=== PATIENT | male | born 1945 | race Caucasian/White ===

== ENCOUNTER 2017-01-04 13:17 | Inpatient (IN) | payer MEDICARE, OTHER, BC ==
[~2017-01-04 13:17] MED LIST: ALPR2TAB3 PO; ASPI81TA82 PO; COMBAER INH; FENO134C PO; IPRAAER IN; LATA.005%O OU; METO50TA; OMEP20TA PO; ROSU20 PO; SYNT125T PO
[2017-01-04 13:18] VITALS: BP 127/63; PULSE 84; RESP 15; TEMP 98.1; O2SAT 97
[2017-01-04 13:33] VITALS: BP 130/75; PULSE 88; RESP 18; O2SAT 98
[2017-01-04] MEDS ORDERED: SODIUM CHLOR 0.9% 1000 ML INJ 1,000 ML IV SCH (13:39)
--- NOTE | 2017-01-04 13:41 | PD ---
HPI Chief Complaint: GI Complaint Time Seen by Provider: 13:41 Travel History International Travel<30 days: No Contact w/Intl Traveler<30days: No Traveled to known affect area: No History of Present Illness HPI 77-year-old male presents to the emergency department for evaluation of diarrhea that is an ongoing since . He states that he returned on December 06 from a trip to [place]. Patient reports history of myelodysplasia and gets a week of chemotherapy every month. He states he gets in the first week of the month. He denies any recent antibiotic use. He states that he will have a squirt when he has diarrhea. He states that he has had some incontinence with the diarrhea as well. He states that there is a slight reddish color to his diarrhea, but denies blood in his stool. He thinks it is due to Gatorade and watermelon. Patient states he has had decreased appetite and has not been eating or drinking since as well. He states he has had low-grade fevers, up to 100.0. He states he had one this morning. Patient states he had abdominal pain on , this has resolved. He denies any chest pain or shortness of breath. No headache. He denies any nausea or vomiting. PFSH Past Medical History Cancer: Yes (LARGE CELL LUNG CANCER) Cardiovascular Problems: No Chemotherapy: Yes Diabetes: No Endocrine: Yes Genitourinary: No Hepatitis: No Hiatal Hernia: No Immune Disorder: Yes (granuloma annulare) Musculoskeletal: No Neurologic: No Psychiatric: Yes (AT NIGHT DUE TO MEDICAL PROBLEMS) Reproductive: No Respiratory: Yes (COPD STOPPED SMOKING IN DECEMBER) Thyroid Disease: Yes Past Surgical History Abdominal Surgery: No AICD: No Cardiac Surgery: No Ear Surgery: No Endocrine Surgery: No Genitourinary Surgery: No Gynecologic Surgery: No Joint Replacement: No Oral Surgery: No Pacemaker: No Thoracic Surgery: Yes (RIGHT MIDDLE LOBE REMOVED 02/09/13) Other Surgery: Yes Social History Alcohol Use: No Tobacco Use: No Substance Use: No Allergies-Medications (Allergen,Severity, Reaction): Coded Allergies: No Known Allergies (Unverified , 03/08/15) Reported Meds & Prescriptions Reported Meds & Active Scripts Active Reported [Chemo Medication] Incruse Ellipta Inh (Umeclidinium [place] Inh) 0.0625 Mg/Act Inh 1 [place] INH DAILY PRN Proair Hfa 8.5 GM Inh (Albuterol Sulfate) 90 Mcg/Act Aer 2 Puff INH Q6H PRN 108 mcg/actuation Latanoprost Opth Drops (Latanoprost) 0.005% Drops 1 Drop EACH EYE HS Refrigerate until opened. Aspirin Adult Low Strength (Aspirin) 81 Mg Tabdr 81 Mg PO DAILY Rosuvastatin (Rosuvastatin Calcium) 20 Mg Tab 20 Mg PO DAILY Alprazolam 1 Mg Tab 1 Mg PO HS Fenofibrate Micronized 134 Mg Cap 134 Mg PO DAILY Metoprolol Tartrate 25 Mg Tab 25 Mg PO BID Omeprazole 40 Mg Cap 40 Mg PO BID Levothyroxine (Levothyroxine Sodium) 150 Mcg Tab 150 Mcg PO DAILY Review of Systems Except as stated in HPI: all other systems reviewed are Neg Physical Exam Narrative GENERAL: Well-nourished, well-developed male patient, ambulatory. Afebrile. SKIN: Focused skin assessment warm/dry. HEAD: Normocephalic. Atraumatic. EYES: No scleral icterus. No injection or drainage. NECK: Supple, trachea midline. No JVD or lymphadenopathy. CARDIOVASCULAR: Regular rate and rhythm without murmurs, gallops, or rubs. RESPIRATORY: Breath sounds equal bilaterally. No accessory muscle use. Lungs sounds are clear to auscultation. GASTROINTESTINAL: Abdomen soft, non-tender, nondistended. Patient reports a pressure with palpation diffusely, but denies pain. MUSCULOSKELETAL: No cyanosis, or edema. BACK: Nontender without obvious deformity. No CVA tenderness. RECTAL EXAM: No masses or tenderness, stool is brown with a reddish brown. Hemoccult is negative. This exam was done with KACI Prakash, at bedside. Data Data Last Documented VS Vital Signs Date Time Temp Pulse Resp B/P Pulse Ox O2 Delivery O2 Flow Rate FiO2 01/04/17 13:35 18 01/04/17 13:33 88 130/75 98 Room Air 01/04/17 13:18 98.1 Orders Complete Blood Count With Diff (01/04/17 13:39) Comprehensive Metabolic Panel (01/04/17 13:39) Lipase (01/04/17 13:39) Lactic Acid (01/04/17 13:39) Prothrombin Time / Inr (Pt) (01/04/17 13:39) Act Partial Throm Time (Ptt) (01/04/17 13:39) Urinalysis - C+S If Indicated (01/04/17 13:39) Iv Access Insert/Monitor (01/04/17 13:39) Ecg Monitoring (01/04/17 13:39) Oximetry (01/04/17 13:39) Sodium Chlor 0.9% 1000 Ml Inj (Ns 1000 M (01/04/17 13:39) Sodium Chloride 0.9% Flush (Ns Flush) (01/04/17 13:45) Blood Culture (01/04/17 13:39) C Diff Toxin Pcr (01/04/17 13:39) Sodium Chlor 0.9% 1000 Ml Inj (Ns 1000 M (01/04/17 14:45) Ct Abd/Pel W/O Iv Contrast (01/04/17 ) Ciprofloxacin 400 Mg Premix (Cipro 400 M (01/04/17 15:00) Metronidazole 500 Mg Inj (Flagyl 500 Mg (01/04/17 15:00) Chest, Single Ap (01/04/17 ) Potassium Chloride (Kcl) (01/04/17 16:30) Labs Laboratory Tests Test 01/04/17 01/04/17 13:40 14:10 White Blood Count 1.6 TH/MM3 Red Blood Count 3.36 MIL/MM3 Hemoglobin 11.4 GM/DL Hematocrit 32.9 % Mean Corpuscular Volume 98.0 FL Mean Corpuscular Hemoglobin 34.1 PG Mean Corpuscular Hemoglobin 34.7 % Concent Red Cell Distribution Width 16.5 % Platelet Count 210 TH/MM3 Mean Platelet Volume 9.2 FL Neutrophils (%) (Auto) 70.1 % Lymphocytes (%) (Auto) 24.6 % Monocytes (%) (Auto) 4.5 % Eosinophils (%) (Auto) 0.2 % Basophils (%) (Auto) 0.6 % Neutrophils # (Auto) 1.1 TH/MM3 Lymphocytes # (Auto) 0.4 TH/MM3 Monocytes # (Auto) 0.1 TH/MM3 Eosinophils # (Auto) 0.0 TH/MM3 Basophils # (Auto) 0.0 TH/MM3 CBC Comment AUTO DIFF Differential Total Cells 100 Counted Neutrophils % (Manual) 52 % Band Neutrophils % 20 % Lymphocytes % 20 % Monocytes % 8 % Neutrophils # (Manual) 1.2 TH/MM3 Nucleated Red Blood Cells 1 /100 WBC Differential Comment FINAL DIFF MANUAL Platelet Estimate NORMAL Platelet Morphology Comment NORMAL Ovalocytes 1+ Prothrombin Time 10.6 SEC Prothromb Time International 1.0 RATIO Ratio Activated Partial 28.0 SEC Thromboplast Time Sodium Level 137 MEQ/L Potassium Level 3.0 MEQ/L Chloride Level 107 MEQ/L Carbon Dioxide Level 17.2 MEQ/L Anion Gap 13 MEQ/L Blood Urea Nitrogen 29 MG/DL Creatinine 2.29 MG/DL Estimat Glomerular Filtration 28 ML/MIN Rate Random Glucose 131 MG/DL Lactic Acid Level 1.8 mmol/L Calcium Level 9.3 MG/DL Total Bilirubin 0.9 MG/DL Aspartate Amino Transf 70 U/L (AST/SGOT) Alanine Aminotransferase 55 U/L (ALT/SGPT) Alkaline Phosphatase 45 U/L Total Protein 7.4 GM/DL Albumin 3.6 GM/DL Lipase 690 U/L Urine Color YELLOW Urine Turbidity HAZY Urine pH 6.0 Urine Specific [place] 1.024 Urine Protein 100 mg/dL Urine Glucose (UA) TRACE mg/dL Urine Ketones NEG mg/dL Urine Occult Blood NEG Urine Nitrite NEG Urine Bilirubin NEG Urine Urobilinogen 2.0 MG/DL Urine Leukocyte Esterase NEG Urine RBC 1 /hpf Urine WBC 6 /hpf Urine Squamous Epithelial 1 /hpf Cells Urine Hyaline Casts 38 /lpf Urine Mucus MOD /lpf Microscopic Urinalysis Comment CULT NOT INDICATED Stool C. difficile Toxin (PCR) NEGATIVE Stl C. difficile Toxin PRESUMPTIVE Epiderm 027 NEGATIVE MDM Medical Decision Making Medical Screen Exam Complete: Yes Emergency Medical Condition: Yes Medical Record Reviewed: Yes Interpretation(s) Last Impressions Abdomen/Pelvis CT 01/04/17 0000 Signed Impressions: Service Date/Time: Wednesday, January 04, 2017 15:13 - CONCLUSION: 1. Mild induration with mildly prominent lymph nodes in the left upper quadrant mesentery. This is nonspecific. The bowel in this region appears unremarkable. 2. Bilateral renal masses likely related to cyst. This could be further evaluated with an ultrasound examination at some point. 3. Scattered colonic diverticula in the sigmoid region without inflammatory change. 4. Postoperative change/scarring at the anterior right lung base. Angel Yanez MD chest x-ray = CONCLUSION: Postoperative change in the right chest. An acute abnormality is not clearly seen. Differential Diagnosis Gastroenteritis versus C. difficile diarrhea versus ellipsoid abnormality versus UTI versus diverticulitis versus pancreatitis Narrative Course 77-year-old male presents to the emergency department for evaluation of diarrhea since with decreased appetite. He has reports the abdominal pain on , but this is resolved. Patient has history myelodysplasia and is on chemotherapy. CBC, CMP, lipase, lactic acid, PTT, PTT/INR, blood cultures 2, UA, C. difficile toxin are ordered and pending. Patient is given normal saline [address] abdomen/pelvis with IV contrast is ordered and pending. CBC shows leukopenia 1.6, neutrophils low at 1.1, band neutrophils are 20. CMP shows hypokalemia at 3.0, BUN 29, creatinine 2.29. Lipase is 690. Lactic acid is 1.8. Coags are unremarkable. CT abdomen/pelvis shows no acute abnormality. Chest x-ray shows no acute abnormality. Patient is given ciprofloxacin 400 mg IV, Flagyl 500 mg IV. Residents are paged for admission. Residents accepted admission. [facility] Point of Care Internal Pos. & Neg. Controls: Passed Fecal Specimen Occult Blood: Negative Diagnosis Primary Impression: Diarrhea Qualified Code: A09 - Diarrhea of presumed infectious origin Additional Impressions: Leukopenia Qualified Code: D72.819 - Leukopenia, unspecified type Bandemia Acute kidney injury Admitting Information Admitting Physician Requests: Admit Luaan Gonzalez Jan 04, 2017 13:41
[2017-01-04] MEDS ORDERED: SODIUM CHLORIDE 0.9% FLUSH 10 ML FLUSH IV FLUSH PRN ×2 (13:45→17:45)
[2017-01-04] MEDS ORDERED: FENO134C PO (13:50)
[2017-01-04] MEDS ORDERED: OMEP40CA2 PO (13:50)
[2017-01-04] MEDS ORDERED: ASPI1TAB91 PO (13:50)
[2017-01-04] MEDS ORDERED: ALPR1TAB3 PO (13:50)
[2017-01-04] MEDS ORDERED: UMEC1INH INH (13:50)
[2017-01-04] MEDS ORDERED: METO25TA3 PO (13:50)
[2017-01-04] MEDS ORDERED: ROSU1TAB8 PO (13:50)
[2017-01-04] MEDS ORDERED: LATA0.002 EACH EYE (13:50)
[2017-01-04] MEDS ORDERED: ALBUAER3 INH (13:50)
[2017-01-04] MEDS ORDERED: LEVO150T7 PO (13:50)
[2017-01-04] MEDS ORDERED: CHEMO MEDICATION (13:51)
[2017-01-04 14:04] LABS: AUTOMATED NEUTROPHIL # 1.1 TH/MM3 (1.8-7.7); BASOPHIL % 0.6 % (0.0-2.0); EOSINOPHIL % 0.2 % (0.0-4.0); HEMATOCRIT 32.9 % (39.0-51.0); LYMPH % 24.6 % (9.0-44.0); LYMPHOCYTE # 0.4 TH/MM3 (1.0-4.8); MEAN CORPUSCULAR HEMOGLOBIN 34.1 PG (27.0-34.0); MEAN CORPUSCULAR HGB CONC 34.7 % (32.0-36.0); MONO % 4.5 % (0.0-8.0); NEUT % 70.1 % (16.0-70.0); PLATELET COUNT 210 TH/MM3 (150-450); RED BLOOD COUNT 3.36 MIL/MM3 (4.50-5.90); RED CELL DISTRIBUTION WIDTH 16.5 % (11.6-17.2); WHITE BLOOD COUNT 1.6 TH/MM3 (4.0-11.0)
[2017-01-04 14:06] LABS: HEMO FLAGS AUTO DIFF
[2017-01-04 14:18] LABS: PROTHROMBIN TIME - PATIENT 10.6 SEC (9.8-11.6)
[2017-01-04 14:24] LABS: ALKALINE PHOSPHATASE 45 U/L (45-117); ALT (GPT) 55 U/L (12-78); TOTAL BILIRUBIN ADULT 0.9 MG/DL (0.2-1.0)
[2017-01-04 14:27] LABS: ANION GAP 13 MEQ/L (5-15); AST (GOT) 70 U/L (15-37); BICARBONATE 17.2 MEQ/L (21.0-32.0); BLOOD UREA NITROGEN 29 MG/DL (7-18); CHLORIDE 107 MEQ/L (98-107); GLOMERULAR FILTRATION RATE 28 ML/MIN (>89); SODIUM (NA) 137 MEQ/L (136-145)
[2017-01-04 14:39] LABS: BLOOD, URINE NEG (NEG); COMMENT (UR) CULT NOT INDICATED; CULTURE IF INDICATED CULT NOT INDICATED; GLUCOSE,URINE TRACE mg/dL (NEG); HYALINE CAST, URINE 38 /lpf (RARE); KETONE, URINE NEG (NEG); MUCUS URINE MOD /lpf (OCC); NITRITE,URINE NEG (NEG); SQUAMOUS EPITHELIAL CELL URINE 1 /hpf (0-5); URINE COLOR YELLOW (YELLW/STRAW)
[2017-01-04 14:45] LABS: BANDS 20 % (0-6); CORRECTED NUCLEATED RBC 1 /100 WBC (0-0); NEUTROPHIL # MANUAL DIFF 1.2 TH/MM3 (1.8-7.7); POLYS (SEG NEUTROPHILS) 52 % (16-70); WBC DIFF SAMPLE 100
[2017-01-04] MEDS ORDERED: SODIUM CHLOR 0.9% 1000 ML INJ 1,000 ML IV ONE (14:45)
[2017-01-04 14:46] LABS: OVALOCYTES 1+ (NORMAL)
[2017-01-04 14:47] LABS: PLATELET ESTIMATE SMEAR NORMAL (NORMAL); PLATELET MORPHOLOGY NORMAL (NORMAL); SCAN/DIFF FINAL DIFF MANUAL
[2017-01-04] MEDS ORDERED: CIPROFLOXACIN 400 MG PREMIX 200 ML IV ONE (15:00)
[2017-01-04] MEDS ORDERED: metroNIDAZOLE 500 MG INJ 100 ML IV ONE (15:00)
--- NOTE | 2017-01-04 16:08 | RADRPT ---
EXAM DATE/TIME: 01/04/2017 15:04 [facility] COMPARISON: No previous studies available for comparison. INDICATIONS : Fever, chest pain, diarrhea, lightheaded and dizziness. MEDICAL HISTORY : Carcinoma, lung. Chronic obstructive pulmonary disease. SURGICAL HISTORY : Lobectomy, middle right. ENCOUNTER: Initial ACUITY: 4 - 6 days PAIN SCORE: 3/10 LOCATION: Bilateral lower chest FINDINGS: There appears to be a lung suture line at the lateral right mid lung. There is some increased densit y at the right base which may be related to postoperative change and tenting. A focal mass is not se en. A significant effusion is not seen. The heart is normal. Clips are seen in the right mediastin al region. CONCLUSION: Postoperative change in the right chest. An acute abnormality is not clearly seen. Angel Yanez MD on January 04, 2017 at 15:50 Board Certified Radiologist. This report was verified electronically.
--- NOTE | 2017-01-04 16:13 | RADRPT ---
EXAM DATE/TIME: 01/04/2017 15:13 [facility] COMPARISON: No previous studies available for comparison. INDICATIONS : Abdomen pain. ORAL CONTRAST: No oral contrast ingested. RADIATION DOSE: 9.96 CTDIvol (mGy) MEDICAL HISTORY : Carcinoma, lung. SURGICAL HISTORY : None. ENCOUNTER: Initial ACUITY: 3 days PAIN SCALE: 3/10 LOCATION: Bilateral abdomen. TECHNIQUE: Volumetric scanning of the abdomen and pelvis was performed. Using automated exposure control and ad justment of the mA and/or kV according to patient size, radiation dose was kept as low as reasonably achievable to obtain optimal diagnostic quality images. DICOM format image data is available electro nically for review and comparison. FINDINGS: LOWER LUNGS: There appears to be some scarring at the anterior right base above the right hemidiaphragm. LIVER: Homogeneous density without lesion. There is no dilation of the biliary tree. No calcified gallston es. SPLEEN: Normal size without lesion. PANCREAS: Within normal limits. KIDNEYS: There is a 4 cm mass at the anterior superior left kidney and a 2.3 cm mass at the lateral mid right kidney. These may represent cysts although they are nonspecific on this noncontrast CT examination. N o renal stones or hydronephrosis is seen. ADRENAL GLANDS: Within normal limits. VASCULAR: There is no aortic aneurysm. Arterial calcifications are seen. BOWEL/MESENTERY: There are few colonic diverticula in the sigmoid region. There some minimal induration of the mesente ry in the left upper quadrant with small mesenteric lymph nodes in this region. The lymph nodes measu re up to 1.2 cm in greatest dimension. This is nonspecific. ABDOMINAL WALL: Within normal limits. RETROPERITONEUM: There is no lymphadenopathy. BLADDER: No wall thickening or mass. REPRODUCTIVE: Within normal limits. INGUINAL: There is no lymphadenopathy or hernia. MUSCULOSKELETAL: Within normal limits for patient age. CONCLUSION: 1. Mild induration with mildly prominent lymph nodes in the left upper quadrant mesentery. This is no nspecific. The bowel in this region appears unremarkable. 2. Bilateral renal masses likely related to cyst. This could be further evaluated with an ultrasound examination at some point. 3. Scattered colonic diverticula in the sigmoid region without inflammatory change. 4. Postoperative change/scarring at the anterior right lung base. Angel Yanez MD on January 04, 2017 at 16:01 Board Certified Radiologist. This report was verified electronically.
[2017-01-04 16:28] LABS: C. DIFF EPI 027 PRESUMPTIVE NEGATIVE (NEGATIVE); C. DIFF TOXIN PCR NEGATIVE (NEGATIVE)
[2017-01-04] MEDS ORDERED: POTASSIUM CHLORIDE 20 MEQ CONTROLLED RELEASE TAB PO ONE (16:30)
--- NOTE | 2017-01-04 17:43 | HHI.HP ---
[facility] Service Family Medicine Primary Care Physician Cassidy (Kavin) MD Carlos Admission Diagnosis diarrhea, bandemia, JOSE J Diagnoses: International Travel<30 Days: Yes Contact w/Intl Traveler<30days: Yes Name of Country Traveled to: [place], [facility] Known Affected Area: No History of Present Illness 71-year-old male with past medical history of neuroendocrine tumor of the right middle lobe status post resection and adjuvant chemotherapy in 2012, currently being treated for myelodysplastic syndrome presenting with a four-day history of diarrhea. Symptoms began on and were associated with mild abdominal cramping. Abdominal cramping resolved the evening on , but diarrhea persisted. He also notes intermittent fevers and chills during this timeframe. He does not go camping. He states he was having a bowel movement about every 2 hours, small amounts, loose to liquidy. No blood was noted in stool, however he did have several darker stools on Thursday and Thursday after having taken Pepto- Bismol and red Gatorade. He has had decreased oral intake, but no vomiting. He has no history of abdominal surgeries. His last chemotherapy regimen with azacitidine was on 20 December. He is next due for his ascending treatment on January [address] Weeks. Of note, he returned from a extended trip to [place] and [facility] on 06 December. He was mostly in the city at that time and did not travel into the country or into the mountains. (Raji Escudero MD R1) Review of Systems Constitutional: COMPLAINS OF: Fever, Chills Endocrine: DENIES: Polydipsia Eyes: DENIES: Blurred vision, Eye pain Ears, nose, mouth, throat: DENIES: Odynophagia Respiratory: DENIES: Cough, Wheezing, Shortness of breath Cardiovascular: DENIES: Chest pain, Palpitations Gastrointestinal: COMPLAINS OF: Abdominal pain, Diarrhea, Nausea, DENIES: Black stools, Bloody stools, Vomiting Genitourinary: DENIES: Urinary frequency Musculoskeletal: DENIES: Muscle aches Integumentary: DENIES: Rash Hematologic/lymphatic: DENIES: Bruising Immunologic/allergic: DENIES: Eczema Neurologic: DENIES: Headache (Raji Escudero MD R1) Past Family Social History Past Medical History Angiodysplasia of small bowel Diane's Esophagus CKD COPD Glaucoma Hyperlipidemia Hemochromatosis (hereditary type) MDS 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 (Raji Escudero MD R1) Physical Exam Vital Signs Vital Signs Date Time Temp Pulse Resp B/P Pulse Ox O2 Delivery O2 Flow Rate FiO2 01/04/17 13:35 18 01/04/17 13:33 88 18 130/75 98 Room Air 01/04/17 13:18 98.1 84 15 127/63 97 Physical Exam GENERAL: Well-developed, well-nourished adult white male sitting in bed appearing tired but in no acute distress SKIN: No rashes, ecchymoses or lesions. Cool and dry. HEAD: NC/AT EYES: PERRL. EOMI. No conjunctival injection or drainage. ENT: MMM, OP without erythema, tonsillar swelling, or exudate. NECK: Supple. No JVD. CARDIOVASCULAR: NRRR. Normal S1/S2. No MRG RESPIRATORY: CTAB. No crackles or wheezes. GASTROINTESTINAL: Abdomen soft, non-distended, non-tender. No hepato- splenomegaly or palpable masses. MUSCULOSKELETAL: Extremities without clubbing, cyanosis, or edema. NEUROLOGICAL: Awake and alert. Cranial nerves II through XII grossly intact. Moves all extremities without difficulty. Normal speech. Laboratory Laboratory Tests Test 01/04/17 01/04/17 13:40 14:10 White Blood Count 1.6 Red Blood Count 3.36 Hemoglobin 11.4 Hematocrit 32.9 Mean Corpuscular Volume 98.0 Mean Corpuscular Hemoglobin 34.1 Mean Corpuscular Hemoglobin 34.7 Concent Red Cell Distribution Width 16.5 Platelet Count 210 Mean Platelet Volume 9.2 Neutrophils (%) (Auto) 70.1 Lymphocytes (%) (Auto) 24.6 Monocytes (%) (Auto) 4.5 Eosinophils (%) (Auto) 0.2 Basophils (%) (Auto) 0.6 Neutrophils # (Auto) 1.1 Lymphocytes # (Auto) 0.4 Monocytes # (Auto) 0.1 Eosinophils # (Auto) 0.0 Basophils # (Auto) 0.0 CBC Comment AUTO DIFF Differential Total Cells 100 Counted Neutrophils % (Manual) 52 Band Neutrophils % 20 Lymphocytes % 20 Monocytes % 8 Neutrophils # (Manual) 1.2 Nucleated Red Blood Cells 1 Differential Comment FINAL DIFF MANUAL Platelet Estimate NORMAL Platelet Morphology Comment NORMAL Ovalocytes 1+ Prothrombin Time 10.6 Prothromb Time International 1.0 Ratio Activated Partial 28.0 Thromboplast Time Sodium Level 137 Potassium Level 3.0 Chloride Level 107 Carbon Dioxide Level 17.2 Anion Gap 13 Blood Urea Nitrogen 29 Creatinine 2.29 Estimat Glomerular Filtration 28 Rate Random Glucose 131 Lactic Acid Level 1.8 Calcium Level 9.3 Total Bilirubin 0.9 Aspartate Amino Transf 70 (AST/SGOT) Alanine Aminotransferase 55 (ALT/SGPT) Alkaline Phosphatase 45 Total Protein 7.4 Albumin 3.6 Lipase 690 Urine Color YELLOW Urine Turbidity HAZY Urine pH 6.0 Urine Specific [place] 1.024 Urine Protein 100 Urine Glucose (UA) TRACE Urine Ketones NEG Urine Occult Blood NEG Urine Nitrite NEG Urine Bilirubin NEG Urine Urobilinogen 2.0 Urine Leukocyte Esterase NEG Urine RBC 1 Urine WBC 6 Urine Squamous Epithelial 1 Cells Urine Hyaline Casts 38 Urine Mucus MOD Microscopic Urinalysis Comment CULT NOT INDICATED Stool C. difficile Toxin (PCR) NEGATIVE Stl C. difficile Toxin PRESUMPTIVE Epiderm 027 NEGATIVE Date/Time Procedure Status Source Growth 01/04/17 13:45 Aerobic Blood Culture Received Blood Peripheral Pending 01/04/17 13:45 Anaerobic Blood Culture Received Blood Peripheral Pending (Raji Escudero MD R1) Result Diagram: 01/04/17 1340 01/04/17 1340 Imaging Last Impressions Chest X-Ray 01/04/17 0000 Signed Impressions: Service Date/Time: Wednesday, January 04, 2017 15:04 - CONCLUSION: Postoperative change in the right chest. An acute abnormality is not clearly seen. Angel Yanez MD Abdomen/Pelvis CT 01/04/17 0000 Signed Impressions: Service Date/Time: Wednesday, January 04, 2017 15:13 - CONCLUSION: 1. Mild induration with mildly prominent lymph nodes in the left upper quadrant mesentery. This is nonspecific. The bowel in this region appears unremarkable. 2. Bilateral renal masses likely related to cyst. This could be further evaluated with an ultrasound examination at some point. 3. Scattered colonic diverticula in the sigmoid region without inflammatory change. 4. Postoperative change/scarring at the anterior right lung base. Angel Yanez MD (Raji Escudero MD R1) Assessment and Plan Assessment and Plan 71-year-old male with past medical history significant for mild dysplastic syndrome presenting with: (Raji Escudero MD R1) Attending Attestation The patient has been seen and examined. The chart and all resident notes have been reviewed. I agree that inpatient care is appropriate and that a two midnight stay is expected for the reasons documented in the resident history and physical. I have discussed this with the resident and certify the resident s order for inpatient admission. (Margy Keyes MD) Problem List: (1) Diarrhea Status: Acute Plan: Given associated fevers or chills, likely etiology is infectious. Clinically not septic at this time. C. difficile PCR negative Hemoccult negative Enteric path culture of stool pending Giardia antigen pending Blood cultures pending - Cipro 400 mg IV every 12 hours - Flagyl 500 mg IV every 8 hours - Creatinine clearance 40 due to JOSE J (see below), renally dosed medicines - Follow up stool studies - Follow up blood culture - If symptoms fail to resolve with Cipro and Flagyl, can consider adding ganciclovir to treat possible CMV colitis; clinically not appearing to have CMV colitis at this time (2) Acute kidney injury Status: Acute Plan: Creatinine 2.29 on admission, elevated from baseline of about 1.5. Likely etiology is dehydration from diarrhea. - Normal saline at 125 mL per hour - Follow up BMP in the morning (3) MDS (myelodysplastic syndrome) Status: Chronic Plan: Blood cell count on admission 1.6, decreased from about 7.1 on 11 December. Patient tends to be leukopenic at about 3 or 4. Bands neutrophils 20%, which could be appropriate response to myelosuppression or infectious etiology - Follow up a.m. CBC - Consider hematology/oncology consult if additional symptoms develop, otherwise keep scheduled appointment with Dr. Weeks (4) Hyperlipidemia Status: Chronic Plan: Continue home statin, fenofibrate (5) Glaucoma Status: Chronic Plan: Continue home eyedrops (6) FEN/PPX Status: Acute Plan: Fluids: As above Electrolytes: Monitor and replete as needed Nutrition: Diet regular adult basic DVT: Lovenox 30 mg SQ daily N/V: Zofran 4 mg IV every 6 hours as needed dw Dr. Mendoza (Raji Escudero MD R1) Physician Certification 2 Midnight Certification Type: Admission for Inpatient Services Order for Inpatient Services The services are ordered in accordance with Medicare regulations or non- Medicare payer requirements, as applicable. In the case of services not specified as inpatient-only, they are appropriately provided as inpatient services in accordance with the 2-midnight benchmark. Estimated LOS (days): 2 days is the estimated time the patient will need to remain in the hospital, assuming treatment plan goals are met and no additional complications. Post-Hospital Plan: Home (Raji Escudero MD R1) Problem Qualifiers (1) Diarrhea: Qualified Code: A09 - Diarrhea of presumed infectious origin (2) Hyperlipidemia: Qualified Code: E78.2 - Mixed hyperlipidemia Raji Escudero MD R1 Jan 04, 2017 17:43 Margy Keyes MD Jan 05, 2017 13:57
[2017-01-04 17:46] VITALS: BP 124/89; PULSE 81; RESP 16; O2SAT 99
[2017-01-04] MEDS ORDERED: NALOXONE HCL 0.4 MG/ML AMP IV PRN (18:15)
[2017-01-04] MEDS ORDERED: ONDANSETRON HCL 4 MG/2 ML VIAL IVP PRN (18:15)
[2017-01-04] MEDS ORDERED: [UNRECOGNIZED DRUG - OTHER] INH PRN (18:30)
[2017-01-04] MEDS ORDERED: UMECLIDINIUM BROMIDE INH PRN (18:30)
[2017-01-04] MEDS: SODIUM CHLOR 0.9% 1000 ML INJ 1,000 ML IV SCH (18:50)
[2017-01-04] MEDS: METOPROLOL TARTRATE 25 MG TAB PO SCH (21:00)
[2017-01-04] MEDS ORDERED: ACETAMINOPHEN 325 MG TAB PO PRN (21:15)
[2017-01-04 21:40] VITALS: BP 100/55; PULSE 95; RESP 20; TEMP 98.7; O2SAT 96
[2017-01-04] MEDS: PANTOPRAZOLE SOD 40 MG DELAYED RELEASE TAB PO SCH (22:15)
[2017-01-04] MEDS: ALPRAZolam 1 MG TAB PO SCH (22:15)
[2017-01-04] MEDS: SODIUM CHLORIDE 0.9% FLUSH 10 ML FLUSH IV FLUSH SCH (22:16)
[2017-01-04] MEDS: LATANOPROST 0.005% OPHT SOLN 2.5 ML BTL EACH EYE SCH (22:16)
[2017-01-04] MEDS: ENOXAPARIN SODIUM 30 MG/0.3 ML SYRINGE SQ SCH (22:16)
[2017-01-04] MEDS: metroNIDAZOLE 500 MG INJ 100 ML IV SCH (23:59)
[2017-01-05 01:16] VITALS: BP 100/60; PULSE 74; RESP 20; TEMP 100.4; O2SAT 97
[2017-01-05] MEDS: SODIUM CHLOR 0.9% 1000 ML INJ 1,000 ML IV SCH ×3 (02:14→23:43)
[2017-01-05] MEDS: CIPROFLOXACIN 400 MG PREMIX 200 ML IV SCH ×2 (04:57→16:29)
[2017-01-05] MEDS: LEVOTHYROXINE SODIUM 150 MCG TAB PO SCH (04:57)
[2017-01-05 05:31] VITALS: BP 102/59; PULSE 83; RESP 20; TEMP 98; O2SAT 96
[2017-01-05 08:00] VITALS: BP 96/53; PULSE 95; RESP 20; TEMP 99; O2SAT 97
[2017-01-05] MEDS: SODIUM CHLORIDE 0.9% FLUSH 10 ML FLUSH IV FLUSH SCH ×2 (09:00→20:51)
[2017-01-05] MEDS: PANTOPRAZOLE SOD 40 MG DELAYED RELEASE TAB PO SCH ×2 (09:00→20:51)
[2017-01-05] MEDS: FENOFIBRATE 145 MG TAB PO SCH (09:00)
[2017-01-05] MEDS: METOPROLOL TARTRATE 25 MG TAB PO SCH ×2 (09:00→20:51)
[2017-01-05] MEDS: ATORVASTATIN 40 MG TAB PO SCH (09:00)
[2017-01-05] MEDS: ASPIRIN EC 81 MG TABEC PO SCH (09:00)
[2017-01-05] MEDS: metroNIDAZOLE 500 MG INJ 100 ML IV SCH ×3 (09:02→23:43)
[2017-01-05 10:43] LABS: AUTOMATED NEUTROPHIL # 1.1 TH/MM3 (1.8-7.7); BASOPHIL % 0.8 % (0.0-2.0); EOSINOPHIL % 0.3 % (0.0-4.0); HEMATOCRIT 28.2 % (39.0-51.0); LYMPH % 24.7 % (9.0-44.0); LYMPHOCYTE # 0.4 TH/MM3 (1.0-4.8); MEAN CELL VOLUME 98.3 FL (80.0-100.0); MEAN CORPUSCULAR HGB CONC 34.7 % (32.0-36.0); MONO % 5.9 % (0.0-8.0); NEUT % 68.3 % (16.0-70.0); PLATELET COUNT 233 TH/MM3 (150-450); RED BLOOD COUNT 2.87 MIL/MM3 (4.50-5.90); RED CELL DISTRIBUTION WIDTH 16.8 % (11.6-17.2); WHITE BLOOD COUNT 1.6 TH/MM3 (4.0-11.0)
[2017-01-05 10:47] LABS: HEMO FLAGS AUTO DIFF
[2017-01-05 11:14] LABS: BICARBONATE 16.8 MEQ/L (21.0-32.0); MAGNESIUM 1.4 MG/DL (1.5-2.5)
[2017-01-05 11:17] LABS: POTASSIUM 2.6 MEQ/L (3.5-5.1)
[2017-01-05 11:24] LABS: BANDS 20 % (0-6); BASOPHILS 2 % (0-2); OVALOCYTES 1+ (NORMAL); PLATELET ESTIMATE SMEAR NORMAL (NORMAL); PLATELET MORPHOLOGY NORMAL (NORMAL); POLYS (SEG NEUTROPHILS) 44 % (16-70); SCAN/DIFF FINAL DIFF MANUAL; WBC DIFF SAMPLE 100
[2017-01-05 11:25] LABS: ACANTHOCYTES OCC (NORMAL); TOXIC GRANULATION 1+ (NORMAL)
[2017-01-05 12:00] VITALS: BP 99/55; PULSE 79; RESP 20; TEMP 98.3; O2SAT 97
[2017-01-05] MEDS ORDERED: POTASSIUM CHLOR 10 MEQ PREMIX 100 ML IV SCH (14:15)
[2017-01-05] MEDS ORDERED: POTASSIUM CHLORIDE 20 MEQ CONTROLLED RELEASE TAB PO ONE ×2 (14:15→22:00)
--- NOTE | 2017-01-05 14:21 | HHI.FPPN ---
Subjective Subjective Patient seen and examined with the resident team. Case reviewed and discussed. Please refer to resident H&P for further details regarding history of present illness, ROS, past medical and surgical history, family and social history. All systems reviewed and negative except as stated in history of present illness. In summary, patient is a 71-year-old male with a history of myelodysplastic syndrome presenting with almost one week history of abdominal cramping and significant diarrhea, up to 9 or 10 episodes per day. He also endorses decreased by mouth intake. He recently traveled to [place]. He is seen in his hospital bed with family by this bedside. He notes temperatures overnight. He continued to have 9 episodes of watery diarrhea overnight. [facility] Objective Objective Last Impressions Chest X-Ray 01/04/17 0000 Signed Impressions: Service Date/Time: Wednesday, January 04, 2017 15:04 - CONCLUSION: Postoperative change in the right chest. An acute abnormality is not clearly seen. Angel Yanez MD Abdomen/Pelvis CT 01/04/17 0000 Signed Impressions: Service Date/Time: Wednesday, January 04, 2017 15:13 - CONCLUSION: 1. Mild induration with mildly prominent lymph nodes in the left upper quadrant mesentery. This is nonspecific. The bowel in this region appears unremarkable. 2. Bilateral renal masses likely related to cyst. This could be further evaluated with an ultrasound examination at some point. 3. Scattered colonic diverticula in the sigmoid region without inflammatory change. 4. Postoperative change/scarring at the anterior right lung base. Angel Yanez MD Laboratory Tests - Abnormals Test 01/04/17 01/05/17 14:10 09:24 Urine Turbidity HAZY Urine Protein 100 mg/dL Urine WBC 6 /hpf Urine Mucus MOD /lpf White Blood Count 1.6 TH/MM3 Red Blood Count 2.87 MIL/MM3 Hemoglobin 9.8 GM/DL Hematocrit 28.2 % Neutrophils # (Auto) 1.1 TH/MM3 Lymphocytes # (Auto) 0.4 TH/MM3 Band Neutrophils % 20 % Neutrophils # (Manual) 1.0 TH/MM3 Toxic Granulation 1+ Ovalocytes 1+ Potassium Level 2.6 MEQ/L Chloride Level 109 MEQ/L Carbon Dioxide Level 16.8 MEQ/L Blood Urea Nitrogen 23 MG/DL Creatinine 1.67 MG/DL Estimat Glomerular Filtration 41 ML/MIN Rate Random Glucose 141 MG/DL Calcium Level 8.4 MG/DL Phosphorus Level 2.0 MG/DL Magnesium Level 1.4 MG/DL Vital Signs 01/04/17 01/04/17 01/05/17 01/05/17 17:46 21:40 01:16 05:31 Temp 98.7 100.4 98.0 Pulse 81 95 74 83 Resp 16 20 20 20 B/P 124/89 100/55 100/60 102/59 Pulse Ox 99 96 97 96 O2 Delivery Room Air 01/05/17 01/05/17 08:00 12:00 Temp 99.0 98.3 Pulse 95 79 Resp 20 20 B/P 96/53 99/55 Pulse Ox 97 97 INTAKE & OUTPUT 01/05/17 07:00 Intake Total 1085 ml Output Total 200 ml Balance 885 ml Physical exam GENERAL: wdwn male, sitting up in bed SKIN: Warm and dry. No rashes HEAD: Normocephalic. AT EYES: No scleral icterus. No injection or drainage. ENT: OP clear. MM slightly dry NECK: Supple, trachea midline. No JVD or lymphadenopathy. CARDIOVASCULAR: Regular rate and rhythm without murmurs, gallops, or rubs. RESPIRATORY: Breath sounds equal bilaterally. No accessory muscle use. GASTROINTESTINAL: Abdomen soft, non-tender, mildly distended. MUSCULOSKELETAL: No cyanosis, or edema. No calf tenderness BACK: Nontender without obvious deformity. No CVA tenderness. NEURO: Awake and alert. Normal speech. CN grossly intact. Assessment Assessment 71yoM with: Intractable diarrhea, concern for infectious colitis Immunosuppression, hx MDS Acute on chronic kidney disease Dehydration Leukopenia Anemia PLAN PLAN Empiric antibiotic therapy Stool studies, c diff neg Trend cbc, bmp Monitor electrolytes Consult oncology, known to Dr. Weeks IVF resume home meds as appropriate Supportive care Patient seen and examined. Case reviewed and discussed Agree with plan of care as discussed with me and documented in the resident note. Margy Keyes MD Jan 05, 2017 14:21
--- NOTE | 2017-01-05 14:34 | PD.CONS ---
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 Denies n/v, abdominal pain, blood in stool. Denies sick contact. Returned from [place] a month ago. No new foods or meds. His eats with him and did not get sick. Stool pos for salmonella. He is on flagyl, cipro. he says he feels better since admission, no longer having explosive diarrhea/ fecal incontinence, and feels his fevers are gone. He last had EGD a few months ago, he gets them regularly with Dr Gonzalez for surveillance of Diane's. Last colonoscopy 4y ago and due to be repeated next year, does not recall abnormal fndings. PFSH Past Medical History myelodysplactic syndrome neuroendocrine tumor lung Past Surgical History resection tumor right middle lobe Coded Allergies: No Known Allergies (Unverified , 03/08/15) Family History denies Social History occasional etoh quit smoking 4 y ago no illicit drug use Review of Systems Constitutional: DENIES: Fever Ears, nose, mouth, throat: COMPLAINS OF: Hearing loss Respiratory: DENIES: Wheezing Cardiovascular: DENIES: Chest pain Gastrointestinal: COMPLAINS OF: Diarrhea, DENIES: Abdominal pain, Black stools , Bloody stools, Constipation, Nausea, Vomiting Genitourinary: DENIES: Hematuria Musculoskeletal: DENIES: Joint Swelling Integumentary: DENIES: Jaundice Immunologic/allergic: DENIES: Eczema Neurologic: DENIES: Abnormal gait Psychiatric: DENIES: Confusion GI Exam Vitals I&O Vital Signs Date Time Temp Pulse Resp B/P Pulse Ox O2 Delivery O2 Flow Rate FiO2 01/05/17 12:00 98.3 79 20 99/55 97 01/05/17 08:00 99.0 95 20 96/53 97 01/05/17 05:31 98.0 83 20 102/59 96 01/05/17 01:16 100.4 74 20 100/60 97 01/04/17 21:40 98.7 95 20 100/55 96 01/04/17 17:46 81 16 124/89 99 Room Air I/O 01/04/17 01/04/17 01/04/17 01/05/17 01/05/17 01/05/17 07:00 15:00 23:00 07:00 15:00 23:00 Intake Total 1085 ml Output Total 200 ml Balance -200 ml 1085 ml Intake IV Total 1085 ml Output Stool Total 200 ml # Voids 1 # Bowel Movements 3 Imaging Last Impressions Chest X-Ray 01/04/17 0000 Signed Impressions: Service Date/Time: Wednesday, January 04, 2017 15:04 - CONCLUSION: Postoperative change in the right chest. An acute abnormality is not clearly seen. Angel Yanez MD Abdomen/Pelvis CT 01/04/17 0000 Signed Impressions: Service Date/Time: Wednesday, January 04, 2017 15:13 - CONCLUSION: 1. Mild induration with mildly prominent lymph nodes in the left upper quadrant mesentery. This is nonspecific. The bowel in this region appears unremarkable. 2. Bilateral renal masses likely related to cyst. This could be further evaluated with an ultrasound examination at some point. 3. Scattered colonic diverticula in the sigmoid region without inflammatory change. 4. Postoperative change/scarring at the anterior right lung base. Angel Yanez MD Laboratory Test 01/05/17 09:24 White Blood Count 1.6 TH/MM3 Red Blood Count 2.87 MIL/MM3 Hemoglobin 9.8 GM/DL Hematocrit 28.2 % Mean Corpuscular Volume 98.3 FL Mean Corpuscular Hemoglobin 34.0 PG Mean Corpuscular Hemoglobin 34.7 % Concent Red Cell Distribution Width 16.8 % Platelet Count 233 TH/MM3 Mean Platelet Volume 9.4 FL Neutrophils (%) (Auto) 68.3 % Lymphocytes (%) (Auto) 24.7 % Monocytes (%) (Auto) 5.9 % Eosinophils (%) (Auto) 0.3 % Basophils (%) (Auto) 0.8 % Neutrophils # (Auto) 1.1 TH/MM3 Lymphocytes # (Auto) 0.4 TH/MM3 Monocytes # (Auto) 0.1 TH/MM3 Eosinophils # (Auto) 0.0 TH/MM3 Basophils # (Auto) 0.0 TH/MM3 CBC Comment AUTO DIFF Differential Total Cells 100 Counted Neutrophils % (Manual) 44 % Band Neutrophils % 20 % Lymphocytes % 28 % Monocytes % 6 % Basophils % 2 % Neutrophils # (Manual) 1.0 TH/MM3 Differential Comment FINAL DIFF MANUAL Toxic Granulation 1+ Platelet Estimate NORMAL Platelet Morphology Comment NORMAL Ovalocytes 1+ Acanthocytes OCC Sodium Level 139 MEQ/L Potassium Level 2.6 MEQ/L Chloride Level 109 MEQ/L Carbon Dioxide Level 16.8 MEQ/L Anion Gap 13 MEQ/L Blood Urea Nitrogen 23 MG/DL Creatinine 1.67 MG/DL Estimat Glomerular Filtration 41 ML/MIN Rate Random Glucose 141 MG/DL Calcium Level 8.4 MG/DL Phosphorus Level 2.0 MG/DL Magnesium Level 1.4 MG/DL Date/Time Procedure Status Source Growth 01/04/17 14:10 Giardia Antigen (CROW) Received Stool Stool Pending 01/04/17 14:10 - Final Complete Stool Stool Salmonella Species 01/04/17 13:45 Aerobic Blood Culture - Preliminary Resulted Blood Peripheral NO GROWTH IN 1 DAY 01/04/17 13:45 Anaerobic Blood Culture - Preliminary Resulted Blood Peripheral NO GROWTH IN 1 DAY Physical Examination HEENT: PERRL; normocephalic; atraumatic; no jaundice. CHEST: respirations even, unlabored CARDIAC: irr heart rate ABDOMEN: Soft, nondistended, nontender; no hepatosplenomegaly EXTREMITIES: No clubbing, cyanosis, or edema. SKIN: Normal; no rash; no jaundice. STAPLER HAND: No focal deficits; alert and oriented times three. Assessment and Plan Plan ASSESSMENT - diarrhea - onset 4d ago. stool pos for salmonella. On cipro, flagyl. - abnormal finding CT - hx neuroendocrine tumor. 1. Mild induration with mildly prominent lymph nodes in the left upper quadrant mesentery. This is nonspecific. The bowel in this region appears unremarkable. PLAN - continue abx - chromogranin A, VIP, gastrin - supportive care - further recommendations to follow This pt seen by myself and Dr Traylor and this note is written on his behalf. Nyla Novak Jan 05, 2017 14:34
[2017-01-05 16:00] VITALS: BP 108/59; PULSE 94; RESP 20; TEMP 100.3; O2SAT 96
[2017-01-05] MEDS: POTASSIUM CHLOR 20 MEQ PREMIX 100 ML IV SCH ×2 (16:28→16:48)
[2017-01-05] MEDS: MAGNESIUM SULFATE 1 GM PREMIX 100 ML IV SCH ×2 (16:28→16:47)
[2017-01-05 20:31] LABS: HEMATOCRIT 26.4 % (39.0-51.0)
[2017-01-05 20:34] LABS: REVIEW FLAG FINAL
[2017-01-05] MEDS: ALPRAZolam 1 MG TAB PO SCH (20:51)
[2017-01-05] MEDS: ENOXAPARIN SODIUM 30 MG/0.3 ML SYRINGE SQ SCH (20:51)
[2017-01-05] MEDS: LATANOPROST 0.005% OPHT SOLN 2.5 ML BTL EACH EYE SCH (20:51)
[2017-01-05 20:57] VITALS: BP 115/65; PULSE 77; RESP 20; TEMP 98.5; O2SAT 98
[2017-01-05 21:03] LABS: BICARBONATE 16.7 MEQ/L (21.0-32.0)
[2017-01-05 21:16] LABS: POTASSIUM 2.6 MEQ/L (3.5-5.1)
[2017-01-06 01:29] VITALS: BP 112/58; PULSE 68; RESP 20; TEMP 96.6; O2SAT 98
[2017-01-06] MEDS: LEVOTHYROXINE SODIUM 150 MCG TAB PO SCH (05:25)
[2017-01-06] MEDS: CIPROFLOXACIN 400 MG PREMIX 200 ML IV SCH ×2 (05:26→17:58)
[2017-01-06 05:34] VITALS: BP 118/68; PULSE 74; RESP 20; TEMP 95.4; O2SAT 100
[2017-01-06 08:00] VITALS: BP 110/69; PULSE 74; RESP 17; TEMP 95.8; O2SAT 99
[2017-01-06] MEDS: metroNIDAZOLE 500 MG INJ 100 ML IV SCH ×2 (09:04→16:56)
[2017-01-06] MEDS: PANTOPRAZOLE SOD 40 MG DELAYED RELEASE TAB PO SCH ×2 (09:04→21:15)
[2017-01-06] MEDS: FENOFIBRATE 145 MG TAB PO SCH (09:05)
[2017-01-06] MEDS: ATORVASTATIN 40 MG TAB PO SCH (09:05)
[2017-01-06] MEDS: METOPROLOL TARTRATE 25 MG TAB PO SCH ×3 (09:05→21:15)
[2017-01-06] MEDS: ASPIRIN EC 81 MG TABEC PO SCH (09:05)
[2017-01-06] MEDS: SODIUM CHLORIDE 0.9% FLUSH 10 ML FLUSH IV FLUSH SCH ×2 (09:06→21:00)
--- NOTE | 2017-01-06 10:49 | HHI.FPPN ---
Subjective Remarks No acute events overnight. Febrile to 100.3. Endorses subjective fever/chills overnight. States he is feeling better this morning however remains tired. Endorses high-volume diarrhea without blood. (Kenia Aleman MD R3) Objective Vitals Vital Signs Date Time Temp Pulse Resp B/P Pulse Ox O2 Delivery O2 Flow Rate FiO2 01/06/17 05:34 95.4 74 20 118/68 100 01/06/17 01:29 96.6 68 20 112/58 98 01/05/17 20:57 98.5 77 20 115/65 98 01/05/17 16:00 100.3 94 20 108/59 96 01/05/17 12:00 98.3 79 20 99/55 97 I/O 01/05/17 01/05/17 01/05/17 01/06/17 01/06/17 01/06/17 07:00 15:00 23:00 07:00 15:00 23:00 Intake Total 1085 ml 480 ml 1170 ml 268 ml Balance 1085 ml 480 ml 1170 ml 268 ml Intake Oral 480 ml IV Total 1085 ml 1170 ml 268 ml # Voids 1 4 2 # Bowel Movements 3 4 3 (Kenia Aleman MD R3) Result Diagram: 01/05/17193301/05/171933 Objective Remarks Gen.: No acute distress Head: Normocephalic. Atraumatic. EENT: Pupils equal round and reactive to light. Nose without drainage. Airway intact. Throat without injection. Cardiovascular: Regular rate and rhythm. No murmurs, rubs or gallops. Respiratory: Lungs clear to auscultation bilaterally. No wheezes or rhonchi. Abdomen: Soft, nontender, nondistended. No peritoneal signs. Musculoskeletal: No gross deformities. No edema. Skin: No obvious rashes or erythema. Neuro: Sensory and motor grossly intact. Cranial nerves II through XII grossly intact. Psych: Appropriate mood and affect (Kenia Aleman MD R3) A/P Assessment and Plan 71-year-old male with past medical history significant for mild dysplastic syndrome presenting with: (Kenia Aleman MD R3) Attending Attestation Patient seen and examined Case reviewed and discussed Agree with plan of care as discussed with me and documented in the resident note. (Margy Keyes MD) Problem List: (1) Salmonella Status: Acute Plan: Patient positive for salmonella. Hemoccult negative. Blood cultures no growth 1 day. - Cipro 400 mg IV every 12 hours - Flagyl 500 mg IV every 8 hours - Creatinine clearance 40 due to JOSE J (see below), renally dosed medicines - Gastroenterology consulted, appreciate recommendations - ID consulted given patient's leukopenia and persistent fevers (2) Leukopenia Status: Acute Plan: Patient with known MDS. Remains febrile. Plan as above. (3) Acute kidney injury Status: Resolved Plan: Resolving. Continue to trend creatinine. Baseline 1.5, 1.6 yesterday evening. (4) MDS (myelodysplastic syndrome) Status: Chronic Plan: WBC on admission 1.6, decreased from about 7.1 on 11 December. Patient tends to be leukopenic at about 3 or 4. Bands neutrophils 20%, which could be appropriate response to myelosuppression or infectious etiology Oncology consulted and appreciate their recommendations (5) Hyperlipidemia Status: Chronic Plan: Continue home statin, fenofibrate (6) Glaucoma Status: Chronic Plan: Continue home eyedrops (7) FEN/PPX Status: Acute Plan: Fluids: NS 125 cc/hour Electrolytes: Patient severely hypokalemic with low magnesium. Aggressively repleting and following BMP. Nutrition: Diet regular adult basic DVT: Lovenox 30 mg SQ daily N/V: Zofran 4 mg IV every 6 hours as needed (Kenia Aleman MD R3) Problem Qualifiers (1) Leukopenia: Qualified Code: D72.819 - Leukopenia, unspecified type (2) Hyperlipidemia: Qualified Code: E78.2 - Mixed hyperlipidemia Kenia Aleman MD R3 Jan 06, 2017 10:48 Margy Keyes MD Jan 09, 2017 15:37
[2017-01-06 11:07] LABS: BASOPHIL % 0.9 % (0.0-2.0); EOSINOPHIL % 0.8 % (0.0-4.0); HEMATOCRIT 27.8 % (39.0-51.0); LYMPH % 34.8 % (9.0-44.0); LYMPHOCYTE # 0.7 TH/MM3 (1.0-4.8); MEAN CORPUSCULAR HEMOGLOBIN 33.6 PG (27.0-34.0); MEAN CORPUSCULAR HGB CONC 33.6 % (32.0-36.0); MONO % 11.5 % (0.0-8.0); PLATELET COUNT 322 TH/MM3 (150-450); RED BLOOD COUNT 2.78 MIL/MM3 (4.50-5.90); RED CELL DISTRIBUTION WIDTH 17.4 % (11.6-17.2); WHITE BLOOD COUNT 1.9 TH/MM3 (4.0-11.0)
[2017-01-06 11:08] LABS: HEMO FLAGS AUTO DIFF
[2017-01-06 11:36] LABS: BICARBONATE 17.4 MEQ/L (21.0-32.0); MAGNESIUM 1.7 MG/DL (1.5-2.5); POTASSIUM 3.2 MEQ/L (3.5-5.1)
[2017-01-06 12:00] VITALS: BP 96/56; PULSE 64; RESP 18; TEMP 96.6; O2SAT 99
[2017-01-06 12:07] LABS: BANDS 12 % (0-6); BASOPHILS 4 % (0-2); EOSINOPHILS 2 % (0-4); MYELOCYTES 1 % (0-0); NEUTROPHIL # MANUAL DIFF 0.8 TH/MM3 (1.8-7.7); PLATELET ESTIMATE SMEAR NORMAL (NORMAL); PLATELET MORPHOLOGY NORMAL (NORMAL); POLYS (SEG NEUTROPHILS) 28 % (16-70); PROMYELOCYTES 1 % (0-0); SCAN/DIFF FINAL DIFF MANUAL; WBC DIFF SAMPLE 100
[2017-01-06 12:08] LABS: OVALOCYTES 1+ (NORMAL)
[2017-01-06] MEDS ORDERED: POTASSIUM CHLORIDE 20 MEQ CONTROLLED RELEASE TAB PO ONE (13:00)
[2017-01-06] MEDS: MAGNESIUM SULFATE 1 GM PREMIX 100 ML IV SCH ×2 (13:25→16:09)
--- NOTE | 2017-01-06 13:26 | PD.ID.CON ---
History of Present Illness Service ID Consult Requested By Dr Aleman Reason for Consult salmonellosis Primary Care Physician Cassidy (Kavin) MD Carlos Diagnoses: History of Present Illness 71 yo male with h/o MDS developped abdominal pain x 1 day , later diarrhea starting Thursday Denies eating out Pt shares meals with his who is free of any similar smx Returened traveller 1 mo ago ([place], [place]) Stool positive for Salmonella On presentation fever, low grade, yday hypothermic 94-95 F He is on cipro, flagyl. 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 Physical Exam Vital Signs Vital Signs Date Time Temp Pulse Resp B/P Pulse Ox O2 Delivery O2 Flow Rate FiO2 01/06/17 12:00 96.6 64 18 96/56 99 01/06/17 08:00 95.8 74 17 110/69 99 01/06/17 05:34 95.4 74 20 118/68 100 01/06/17 01:29 96.6 68 20 112/58 98 01/05/17 20:57 98.5 77 20 115/65 98 01/05/17 16:00 100.3 94 20 108/59 96 Physical Exam CONSTITUTIONAL/GENERAL: This is an adequately nourished patient, in no apparent distress. TUBES/LINES/DRAINS: SKIN: No jaundice, rashes, or lesions. Skin temperature appropriate. Not diaphoretic. HEAD: Atraumatic. Normocephalic. EYES: Pupils equal and round and reactive. Extraocular motions intact. No scleral icterus. No injection or drainage. Fundi not examined. ENT: Hearing grossly normal. Nose without bleeding or purulent drainage. Throat without visible erythema, exudates, masses, or lesions. NECK: Trachea midline. Supple, nontender. No palpable thyroid enlargement or nodularity. CARDIOVASCULAR: Regular rate and rhythm without murmurs, gallops, or rubs. No JVD. Peripheral pulses symmetric. RESPIRATORY/CHEST: Symmetric, unlabored respirations. Clear to auscultation. Breath sounds equal bilaterally. No wheezes, rales, or rhonchi. GASTROINTESTINAL: Abdomen soft, non-tender, nondistended. No hepato-splenomegaly , or palpable masses. No guarding. Bowel sounds present. GENITOURINARY: Without palpable bladder distension. MUSCULOSKELETAL: Extremities without clubbing, cyanosis, or edema. No joint tenderness or effusion noted. No calf tenderness. No mottling or clubbing. LYMPHATICS: No palpable cervical or supraclavicular adenopathy. NEUROLOGICAL: Awake and alert. Motor and sensory grossly within normal limits. Follows commands. Clear speech. Moves all extremities. PSYCHIATRIC: No obvious anxiety/depression. no apparent hallucinations or other psychotic thought process. Laboratory Laboratory Tests Test 01/05/17 01/06/17 19:34 10:16 Hemoglobin 9.3 9.3 Hematocrit 26.4 27.8 Sodium Level 140 142 Potassium Level 2.6 3.2 Chloride Level 112 115 Carbon Dioxide Level 16.7 17.4 Anion Gap 11 10 Blood Urea Nitrogen 17 17 Creatinine 1.63 1.26 Estimat Glomerular Filtration 42 56 Rate Random Glucose 131 118 Calcium Level 8.5 8.9 White Blood Count 1.9 Red Blood Count 2.78 Mean Corpuscular Volume 100.0 Mean Corpuscular Hemoglobin 33.6 Mean Corpuscular Hemoglobin 33.6 Concent Red Cell Distribution Width 17.4 Platelet Count 322 Mean Platelet Volume 8.6 Neutrophils (%) (Auto) 52.0 Lymphocytes (%) (Auto) 34.8 Monocytes (%) (Auto) 11.5 Eosinophils (%) (Auto) 0.8 Basophils (%) (Auto) 0.9 Neutrophils # (Auto) 1.0 Lymphocytes # (Auto) 0.7 Monocytes # (Auto) 0.2 Eosinophils # (Auto) 0.0 Basophils # (Auto) 0.0 CBC Comment AUTO DIFF Differential Total Cells 100 Counted Neutrophils % (Manual) 28 Band Neutrophils % 12 Lymphocytes % 42 Monocytes % 10 Eosinophils % 2 Basophils % 4 Neutrophils # (Manual) 0.8 Myelocytes 1 Promyelocytes 1 Differential Comment FINAL DIFF MANUAL Platelet Estimate NORMAL Platelet Morphology Comment NORMAL Ovalocytes 1+ Magnesium Level 1.7 Date/Time Procedure Status Source Growth 01/04/17 14:10 Giardia Antigen (CROW) - Final Complete Stool Stool NEGATIVE - NO GIARDIA ANTIGEN DETECTE... 01/04/17 14:10 - Final Complete Stool Stool Salmonella Species 01/04/17 13:45 Aerobic Blood Culture - Preliminary Resulted Blood Peripheral NO GROWTH IN 2 DAYS 01/04/17 13:45 Anaerobic Blood Culture - Preliminary Resulted Blood Peripheral NO GROWTH IN 2 DAYS Result Diagram: 01/06/17 1016 01/06/17 1016 Imaging Last Impressions Chest X-Ray 01/04/17 0000 Signed Impressions: Service Date/Time: Wednesday, January 04, 2017 15:04 - CONCLUSION: Postoperative change in the right chest. An acute abnormality is not clearly seen. Angel Yanez MD Abdomen/Pelvis CT 01/04/17 0000 Signed Impressions: Service Date/Time: Wednesday, January 04, 2017 15:13 - CONCLUSION: 1. Mild induration with mildly prominent lymph nodes in the left upper quadrant mesentery. This is nonspecific. The bowel in this region appears unremarkable. 2. Bilateral renal masses likely related to cyst. This could be further evaluated with an ultrasound examination at some point. 3. Scattered colonic diverticula in the sigmoid region without inflammatory change. 4. Postoperative change/scarring at the anterior right lung base. Angel Yanez MD Assessment and Plan Assessment and Plan Salmonellosis, gastointestinal c.Diff negative No e/o bacteremia or extraintesinal salmonellosis MDS, immunosuppresdd cont cipro. Can be switched to PO if blood clx remian negative dc flagyl Because of pt's immunocompromised status minimal duration is 14 days - monitor blood clx untill final - Monitor for relapse or protractec course Discussed Condition With DomenicOfelia MD Jan 06, 2017 13:26
--- NOTE | 2017-01-06 16:37 | HHI.GIFU ---
Subjective Remarks PT resting in bed, at bedside. Pt sleeping. Per diarrhea still present but improved in frequency and volume. Pt denies pain, n/v. Objective Vitals I&O Vital Signs Date Time Temp Pulse Resp B/P Pulse Ox O2 Delivery O2 Flow Rate FiO2 01/06/17 12:00 96.6 64 18 96/56 99 01/06/17 08:00 95.8 74 17 110/69 99 01/06/17 05:34 95.4 74 20 118/68 100 01/06/17 01:29 96.6 68 20 112/58 98 01/05/17 20:57 98.5 77 20 115/65 98 I/O 01/05/17 01/05/17 01/05/17 01/06/17 01/06/17 01/06/17 07:00 15:00 23:00 07:00 15:00 23:00 Intake Total 1085 ml 480 ml 1170 ml 268 ml Balance 1085 ml 480 ml 1170 ml 268 ml Intake Oral 480 ml IV Total 1085 ml 1170 ml 268 ml # Voids 1 4 2 # Bowel Movements 3 4 3 Laboratory Laboratory Tests Test 01/05/17 01/06/17 01/06/17 19:34 10:16 14:23 Hemoglobin 9.3 9.3 Hematocrit 26.4 27.8 Sodium Level 140 142 Potassium Level 2.6 3.2 Chloride Level 112 115 Carbon Dioxide Level 16.7 17.4 Anion Gap 11 10 Blood Urea Nitrogen 17 17 Creatinine 1.63 1.26 Estimat Glomerular Filtration 42 56 Rate Random Glucose 131 118 Calcium Level 8.5 8.9 White Blood Count 1.9 Red Blood Count 2.78 Mean Corpuscular Volume 100.0 Mean Corpuscular Hemoglobin 33.6 Mean Corpuscular Hemoglobin 33.6 Concent Red Cell Distribution Width 17.4 Platelet Count 322 Mean Platelet Volume 8.6 Neutrophils (%) (Auto) 52.0 Lymphocytes (%) (Auto) 34.8 Monocytes (%) (Auto) 11.5 Eosinophils (%) (Auto) 0.8 Basophils (%) (Auto) 0.9 Neutrophils # (Auto) 1.0 Lymphocytes # (Auto) 0.7 Monocytes # (Auto) 0.2 Eosinophils # (Auto) 0.0 Basophils # (Auto) 0.0 CBC Comment AUTO DIFF Differential Total Cells 100 Counted Neutrophils % (Manual) 28 Band Neutrophils % 12 Lymphocytes % 42 Monocytes % 10 Eosinophils % 2 Basophils % 4 Neutrophils # (Manual) 0.8 Myelocytes 1 Promyelocytes 1 Differential Comment FINAL DIFF MANUAL Platelet Estimate NORMAL Platelet Morphology Comment NORMAL Ovalocytes 1+ Magnesium Level 1.7 2.2 Date/Time Procedure Status Source Growth 01/04/17 14:10 Giardia Antigen (CROW) - Final Complete Stool Stool NEGATIVE - NO GIARDIA ANTIGEN DETECTE... 01/04/17 14:10 - Final Complete Stool Stool Salmonella Species 01/04/17 13:45 Aerobic Blood Culture - Preliminary Resulted Blood Peripheral NO GROWTH IN 2 DAYS 01/04/17 13:45 Anaerobic Blood Culture - Preliminary Resulted Blood Peripheral NO GROWTH IN 2 DAYS Imaging Last Impressions Chest X-Ray 01/04/17 0000 Signed Impressions: Service Date/Time: Wednesday, January 04, 2017 15:04 - CONCLUSION: Postoperative change in the right chest. An acute abnormality is not clearly seen. Angel Yanez MD Abdomen/Pelvis CT 01/04/17 0000 Signed Impressions: Service Date/Time: Wednesday, January 04, 2017 15:13 - CONCLUSION: 1. Mild induration with mildly prominent lymph nodes in the left upper quadrant mesentery. This is nonspecific. The bowel in this region appears unremarkable. 2. Bilateral renal masses likely related to cyst. This could be further evaluated with an ultrasound examination at some point. 3. Scattered colonic diverticula in the sigmoid region without inflammatory change. 4. Postoperative change/scarring at the anterior right lung base. Angel Yanez MD Physical Exam HEENT: PERRL; normocephalic; atraumatic; no jaundice. CHEST: respirations even, unlabored CARDIAC: HR regular, pulse +2 radial ABDOMEN: Soft, nondistended, nontender; no hepatosplenomegaly EXTREMITIES: No clubbing, cyanosis, or edema. SKIN: Normal; no rash; no jaundice. MOTOR BLOCK MECHANIC: No focal deficits; alert and oriented times three. Assessment and Plan Plan ASSESSMENT - diarrhea - improving gradually. onset 4d ago. stool pos for salmonella. On cipro, flagyl. - abnormal finding CT - hx neuroendocrine tumor. 1. Mild induration with mildly prominent lymph nodes in the left upper quadrant mesentery. This is nonspecific. The bowel in this region appears unremarkable. PLAN - continue abx - await chromogranin A, VIP, gastrin - supportive care - further recommendations to follow This pt seen by myself and Dr Traylor and this note is written on his behalf. Nyla Novak Jan 06, 2017 16:37
[2017-01-06 19:45] VITALS: BP 98/68; PULSE 72; RESP 18; TEMP 96.6; O2SAT 98
[2017-01-06] MEDS: LATANOPROST 0.005% OPHT SOLN 2.5 ML BTL EACH EYE SCH (21:15)
[2017-01-06] MEDS: ALPRAZolam 1 MG TAB PO SCH (21:15)
[2017-01-06] MEDS: ENOXAPARIN SODIUM 30 MG/0.3 ML SYRINGE SQ SCH (21:15)
[2017-01-06] MEDS: SODIUM CHLOR 0.9% 1000 ML INJ 1,000 ML IV SCH (22:21)
--- NOTE | 2017-01-06 22:25 | MB ---
cc: TAYLER BARRAZA M.D. DATE OF CONSULTATION January 06, [address] Escudero REASON FOR CONSULTATION Hematology consulted to render opinion regarding patient with myelodysplastic syndrome, admitted with diarrhea, neutropenic fever. HISTORY OF PRESENT ILLNESS The patient is a very pleasant 71-year-old male with history of myelodysplastic syndrome, currently receiving Vidaza, presented to the hospital with complaint of persistent diarrhea. He received last cycle of Vidaza from December 15 to December 20. He was doing well until last when he started having diarrhea. He has up to 10-15 times of stool a day. He cannot control his diarrhea. He has also been having fever and chills with temperature up to 101. He has abdominal cramps associated with diarrhea. He denies any GI bleed. He has decreased oral intake. He came to the hospital and his white blood cell count 1.6 with absolute neutrophil count of 1.1. His stool study showed positive salmonella infection. He was started on antibiotic. He is feeling better today. He has not had fever over the last 24 hours. He still has diarrhea but is down to about eight times a day and he is able to control it. He denies chest pain, palpitation, shortness of breath or cough. Denies any nausea, vomiting, abdominal pain. Denies any dysuria, hematuria. PAST MEDICAL HISTORY 1. Myelodysplastic syndrome. 2. Large cell neuroendocrine tumor. 3. Diane's esophagus. 4. Chronic kidney disease. 5. Chronic obstructive pulmonary disease. 6. Glaucoma. 7. Hyperlipidemia. 8. Hemochromatosis. 9. Small bowel angiodysplasia. PAST SURGICAL HISTORY 1. Bone marrow biopsy February 2015. 2. Lung biopsy. 3. Right middle lobe lobectomy. 4. Pilonidal cyst and sebaceous cyst excision. 5. Colonoscopy and upper endoscopy. FAMILY HISTORY Noncontributory. SOCIAL HISTORY Quit smoking. He has 120 pack-year smoking history. He drinks occasionally. ALLERGIES No known drug allergies. CURRENT MEDICATIONS 1. Aspirin. 2. Tricor. 3. Lipitor. 4. Levothyroxine. 5. Flagyl. 6. Xanax. 7. Latanoprost. 8. Metoprolol. 9. Protonix. 10. Lovenox. 11. Cipro. REVIEW OF SYSTEMS CONSTITUTIONAL: As above. EYES: Denies blurry vision or double vision. ENT: No mouth or voice changes. CARDIOVASCULAR: No chest pain, palpitation. RESPIRATORY: Denies shortness of breath, cough. GI: As above. : Denies dysuria, hematuria. MUSCULOSKELETAL: Negative. HEMATOLOGY: As above. ENDOCRINE: Negative. DERMATOLOGY: Negative. PSYCHIATRIC: Negative. NEUROLOGIC: Negative. PHYSICAL EXAMINATION VITAL SIGNS: Temperature 96.6, blood pressure 96/56, O2 saturation 99%. GENERAL: He is alert, oriented x3, in no acute distress. He is sitting up eating dinner. HEENT: Atraumatic, normocephalic. Pupils equal, round and reactive to light. Extraocular muscle intact. No scleral icterus. Oropharynx dry mucosa. No lesion or thrush. NECK: No thyromegaly. No palpable masses. LYMPHATICS: No palpable cervical, clavicular, axillary lymph node. CARDIOVASCULAR: Regular S1-S2. No murmur. LUNGS: Clear to auscultation without wheezing or rhonchi. ABDOMEN: Soft, nontender. I could not palpate liver or spleen. EXTREMITIES: No cyanosis, no clubbing or edema. BACK: No paravertebral tenderness. SKIN: No rash or petechiae. NEUROLOGIC EXAMINATION: Nonfocal. LABORATORY DATA Laboratory data reviewed. ASSESSMENT 1. Neutropenic fever. He presented with fever and has moderate neutropenia with ANC of 1000. He likely developed neutropenia due to his recent Vidaza. His last cycle of Vidaza was from December 15 to December 20. He was found to have salmonella infection. He is now afebrile for the last 24 hours after he has been started on antibiotics. His white blood cell count is relatively stable. Given that his clinical condition has improved and the fact that his white blood cell count is quite stable I will hold off on giving him Neupogen at this time. If he has persistent fever or developed worsening neutropenia then I would give him Neupogen. Anticipate his blood count to improve in the next few days. 2. Myelodysplastic syndrome with IPSS score 2. He has been on Vidaza since October of 2015. He does not require transfusion at this time. His hemoglobin is stable. His platelet count is normal. No evidence of transformation to acute leukemia at this time. 3. 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 He received four cycles of carboplatin and etoposide. He has no evidence of recurrent disease. 4. Chronic kidney disease. He presented with acute renal failure due to dehydration. His renal function has improved. 5. Chronic obstructive lung disease. He has no symptoms. 6. Hyperlipidemia. 7. Hemochromatosis. RECOMMENDATIONS 1. Continue antibiotic per infectious disease. 2. Monitor CBC. 3. Can consider giving him Neupogen if he has worsening neutropenia or if he has recurrent fever. Thank you Dr. Escudero for asking me to see this patient. Will follow the patient with you. MD AMY Acevedo/GERRY /6:30 PM /9:57 PM MILENA
[2017-01-07] VITALS (7 sets, daily range): BP systolic 107–164; BP diastolic 60–78; PULSE 72–85; RESP 17–20; TEMP 95.3–97.3; O2SAT 95–99
[2017-01-07] MEDS: SODIUM CHLOR 0.9% 1000 ML INJ 1,000 ML IV SCH ×2 (02:14→08:11)
[2017-01-07] MEDS: CIPROFLOXACIN 400 MG PREMIX 200 ML IV SCH ×2 (04:26→17:24)
[2017-01-07] MEDS: LEVOTHYROXINE SODIUM 150 MCG TAB PO SCH (05:24)
[2017-01-07] MEDS: SODIUM CHLORIDE 0.9% FLUSH 10 ML FLUSH IV FLUSH SCH ×2 (08:11→21:00)
[2017-01-07] MEDS: METOPROLOL TARTRATE 25 MG TAB PO SCH ×2 (08:12→21:00)
[2017-01-07] MEDS: ASPIRIN EC 81 MG TABEC PO SCH (08:12)
[2017-01-07] MEDS: ATORVASTATIN 40 MG TAB PO SCH (08:13)
[2017-01-07] MEDS: FENOFIBRATE 145 MG TAB PO SCH (08:13)
[2017-01-07] MEDS: PANTOPRAZOLE SOD 40 MG DELAYED RELEASE TAB PO SCH ×2 (08:14→21:43)
--- NOTE | 2017-01-07 08:38 | PD.ONC.PN ---
Subjective Subjective Remarks Afebrile overnight. Feeling well today. Still with multiple episodes of diarrhea, but overall feeling improved. at bedside. Waiting on CBC results this morning. Objective Data Date Time Temp Pulse Resp B/P Pulse Ox O2 Delivery O2 Flow Rate FiO2 01/07/17 04:00 97.3 84 18 151/65 98 01/07/17 02:00 110/60 01/07/17 01:00 95.3 79 18 164/65 95 01/06/17 19:45 96.6 72 18 98/68 98 01/06/17 12:00 96.6 64 18 96/56 99 01/07/17 01/07/17 01/07/17 07:00 15:00 23:00 Intake Total 1450 ml Balance 1450 ml Result Diagram: 01/06/17 1016 01/06/17 1016 Laboratory Results Laboratory Tests Test 01/06/17 01/06/17 10:16 14:23 White Blood Count 1.9 TH/MM3 Red Blood Count 2.78 MIL/MM3 Hemoglobin 9.3 GM/DL Hematocrit 27.8 % Mean Corpuscular Volume 100.0 FL Mean Corpuscular Hemoglobin 33.6 PG Mean Corpuscular Hemoglobin 33.6 % Concent Red Cell Distribution Width 17.4 % Platelet Count 322 TH/MM3 Mean Platelet Volume 8.6 FL Neutrophils (%) (Auto) 52.0 % Lymphocytes (%) (Auto) 34.8 % Monocytes (%) (Auto) 11.5 % Eosinophils (%) (Auto) 0.8 % Basophils (%) (Auto) 0.9 % Neutrophils # (Auto) 1.0 TH/MM3 Lymphocytes # (Auto) 0.7 TH/MM3 Monocytes # (Auto) 0.2 TH/MM3 Eosinophils # (Auto) 0.0 TH/MM3 Basophils # (Auto) 0.0 TH/MM3 CBC Comment AUTO DIFF Differential Total Cells 100 Counted Neutrophils % (Manual) 28 % Band Neutrophils % 12 % Lymphocytes % 42 % Monocytes % 10 % Eosinophils % 2 % Basophils % 4 % Neutrophils # (Manual) 0.8 TH/MM3 Myelocytes 1 % Promyelocytes 1 % Differential Comment FINAL DIFF MANUAL Platelet Estimate NORMAL Platelet Morphology Comment NORMAL Ovalocytes 1+ Sodium Level 142 MEQ/L Potassium Level 3.2 MEQ/L Chloride Level 115 MEQ/L Carbon Dioxide Level 17.4 MEQ/L Anion Gap 10 MEQ/L Blood Urea Nitrogen 17 MG/DL Creatinine 1.26 MG/DL Estimat Glomerular Filtration 56 ML/MIN Rate Random Glucose 118 MG/DL Calcium Level 8.9 MG/DL Magnesium Level 1.7 MG/DL 2.2 MG/DL Culture Results Microbiology Date/Time Procedure Status Source Growth 01/04/17 13:40 Aerobic Blood Culture - Preliminary Resulted Blood Peripheral NO GROWTH IN 2 DAYS 01/04/17 13:40 Anaerobic Blood Culture - Preliminary Resulted Blood Peripheral NO GROWTH IN 2 DAYS 01/04/17 13:45 Aerobic Blood Culture - Preliminary Resulted Blood Peripheral NO GROWTH IN 2 DAYS 01/04/17 13:45 Anaerobic Blood Culture - Preliminary Resulted Blood Peripheral NO GROWTH IN 2 DAYS 01/04/17 14:10 - Final Complete Stool Stool Salmonella Species 01/04/17 14:10 Giardia Antigen (CROW) - Final Complete Stool Stool NEGATIVE - NO GIARDIA ANTIGEN DETECTE... Administered Medications Medications (Trade) Dose Ordered Sig/Lori Route PRN Reason Start Time Stop Time Status Last Admin Dose Admin Sodium Chloride 2 ml 2 ml BID IV FLUSH 01/04/17 21:00 01/04/17 22:16 Sodium Chloride (NS 1000 ml Inj) 1,000 ml @ 125 mls/hr Q8H IV 01/04/17 18:14 01/07/17 08:11 Enoxaparin Sodium 30 mg 30 mg Q24H SQ 01/04/17 20:00 01/06/17 21:15 Ciprofloxacin/ Dextrose (Cipro 400 Mg Premix) 200 ml @ 200 mls/hr Q12H IV 01/04/17 05:00 01/07/17 04:26 Alprazolam (Xanax) 1 mg HS PO 01/04/17 21:00 01/06/17 21:15 Aspirin (Ecotrin Ec) 81 mg DAILY PO 01/05/17 09:00 01/07/17 08:12 Latanoprost (Xalatan 0.005% Opt Soln) 1 drop HS EACH EYE 01/04/17 21:00 01/06/17 21:15 Levothyroxine Sodium (Synthroid) 150 mcg DAILY@06 PO 01/05/17 06:00 01/07/17 05:24 Metoprolol Tartrate (Lopressor) 25 mg BID PO 01/04/17 21:00 6/26/17 20:51 Fenofibrate (Tricor) 145 mg DAILY PO 01/05/17 09:00 01/07/17 08:13 Pantoprazole Sodium (Protonix) 40 mg BID PO 01/04/17 21:00 01/07/17 08:14 Atorvastatin Calcium (Lipitor) 40 mg DAILY PO CM 01/05/17 09:00 01/07/17 08:13 Objective Remarks GENERAL: Elderly male, upright in bed in nad. SKIN: Warm and dry. HEAD: Normocephalic. EYES: No injection or drainage. NECK: Supple, trachea midline. CARDIOVASCULAR: Regular rate and rhythm RESPIRATORY: Breath sounds equal bilaterally. No accessory muscle use. GASTROINTESTINAL: Abdomen soft, non-tender, nondistended. EXTREMITIES: No cyanosis NEUROLOGICAL: No obvious focal deficit. Awake, alert, and oriented x3. Assessment/Plan Problem List: (1) Neutropenic fever Status: Acute Plan: -- likely developed neutropenia due to his recent Vidaza. --last cycle of Vidaza was from December 15 to December 20. ++salmonella infection. --If he has persistent fever or developed worsening neutropenia-->will start Neupogen. --Anticipate his blood count to improve in the next few days. (2) MDS (myelodysplastic syndrome) Status: Chronic Plan: --Myelodysplastic syndrome with IPSS score 2. --has been on Vidaza since October of 2015. --does not require transfusion at this time. --No evidence of transformation to acute leukemia at this time. Assessment 71y/o male with myelodysplastic syndrome, admitted with diarrhea, neutropenic fever. h/o Myelodysplastic syndrome. 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 Chronic kidney disease. Chronic obstructive pulmonary disease. Glaucoma. Hyperlipidemia. Hemochromatosis. Small bowel angiodysplasia. Plan 1. monitor CBC 2. continue antibiotics 3. no need for transfusion at present. Attending Statement The exam, history, and the medical decision-making described in the above note were completed with the assistance of the mid-level provider. I reviewed and agree with the findings presented. I attest that I had a [id number] encounter with the patient on the same day, and personally performed and documented my assessment and findings in the medical record. Still has diarrhea but stool more formed. No abdominal pain. Afebrile >24hours. WBC trending up, ANC 1200. No need for neupogen at this time. Monitor CBC. Continue abx per ID. Karrie Solis Jan 07, 2017 08:38 Cristobal Ness MD Jan 07, 2017 15:56
[2017-01-07 10:07] LABS: AUTOMATED NEUTROPHIL # 1.6 TH/MM3 (1.8-7.7); BASOPHIL # 0.1 TH/MM3 (0-0.2); BASOPHIL % 1.6 % (0.0-2.0); EOSINOPHIL % 1.2 % (0.0-4.0); HEMATOCRIT 30.6 % (39.0-51.0); LYMPH % 34.3 % (9.0-44.0); LYMPHOCYTE # 1.1 TH/MM3 (1.0-4.8); MEAN CELL VOLUME 100.5 FL (80.0-100.0); MEAN CORPUSCULAR HEMOGLOBIN 33.1 PG (27.0-34.0); MEAN CORPUSCULAR HGB CONC 32.9 % (32.0-36.0); MONO % 11.9 % (0.0-8.0); PLATELET COUNT 485 TH/MM3 (150-450); RED BLOOD COUNT 3.04 MIL/MM3 (4.50-5.90); RED CELL DISTRIBUTION WIDTH 17.5 % (11.6-17.2); WHITE BLOOD COUNT 3.1 TH/MM3 (4.0-11.0)
[2017-01-07 10:16] LABS: HEMO FLAGS AUTO DIFF
[2017-01-07 10:35] LABS: BICARBONATE 18.5 MEQ/L (21.0-32.0); MAGNESIUM 1.5 MG/DL (1.5-2.5); POTASSIUM 3.8 MEQ/L (3.5-5.1)
[2017-01-07 11:01] LABS: BANDS 18 % (0-6); BASOPHILS 2 % (0-2); CORRECTED NUCLEATED RBC 1 /100 WBC (0-0); METAMYELOCYTES 1 % (0-1); MYELOCYTES 1 % (0-0); NEUTROPHIL # MANUAL DIFF 1.2 TH/MM3 (1.8-7.7); POLYS (SEG NEUTROPHILS) 20 % (16-70); WBC DIFF SAMPLE 100
[2017-01-07 11:02] LABS: ACANTHOCYTES OCC (NORMAL); OVALOCYTES 1+ (NORMAL); PLATELET ESTIMATE SMEAR HIGH (NORMAL); TOXIC GRANULATION 2+ (NORMAL)
[2017-01-07 11:03] LABS: PLATELET MORPHOLOGY NORMAL (NORMAL); SCAN/DIFF FINAL DIFF MANUAL
--- NOTE | 2017-01-07 14:05 | HHI.FPPN ---
Subjective Remarks Patient feeling better. Does report some sweating last night, but this is his baseline. He is still having loose stools, but this has reduced in frequency. Only now having 8 BMs per 24 hours. Denies blood with his stools. Tolerating full meals, including pancakes and muffins. (Mitchell Mendoza MD R2) Objective Vitals Vital Signs Date Time Temp Pulse Resp B/P Pulse Ox O2 Delivery O2 Flow Rate FiO2 01/07/17 12:00 95.9 85 18 124/67 98 01/07/17 08:00 95.9 76 17 107/66 98 01/07/17 04:00 97.3 84 18 151/65 98 01/07/17 02:00 110/60 01/07/17 01:00 95.3 79 18 164/65 95 01/06/17 19:45 96.6 72 18 98/68 98 I/O 01/06/17 01/06/17 01/06/17 01/07/17 01/07/17 01/07/17 06:59 14:59 22:59 06:59 14:59 22:59 Intake Total 1170 ml 268 ml 1450 ml Balance 1170 ml 268 ml 1450 ml IV Total 1170 ml 268 ml 1450 ml # Voids 2 2 # Bowel Movements 3 2 (Mitchell Mendoza MD R2) Result Diagram: 01/07/1782001/07/17820 Objective Remarks Gen.: No acute distress Head: Normocephalic. Atraumatic. EENT: Pupils equal round and reactive to light. Nose without drainage. Airway intact. Throat without injection. Cardiovascular: Regular rate and rhythm. No murmurs, rubs or gallops. Respiratory: Lungs clear to auscultation bilaterally. No wheezes or rhonchi. Abdomen: Soft, nontender, nondistended. No peritoneal signs. Musculoskeletal: No gross deformities. No edema. Skin: No obvious rashes or erythema. Neuro: Sensory and motor grossly intact. Cranial nerves II through XII grossly intact. Psych: Appropriate mood and affect (Mitchell Mendoza MD R2) A/P Assessment and Plan 71-year-old male with past medical history significant for mild dysplastic syndrome presenting with: (Mitchell Mendoza MD R2) Attending Attestation Patient seen and examined Case reviewed and discussed Agree with plan of care as discussed with me and documented in the resident note. dw Dr. Sheth, ID (Margy Keyes MD) Problem List: (1) Salmonella Status: Acute Plan: Patient positive for salmonella. Hemoccult negative. Blood cultures no growth 1 day. - Cipro 400 mg IV every 12 hours - Flagyl 500 mg IV every 8 hours - Creatinine clearance 40 due to JOSE J (see below), renally dosed medicines - Gastroenterology consulted, appreciate recommendations - ID consulted given patient's leukopenia and persistent fevers (2) Leukopenia Status: Acute Plan: Patient with known MDS. Afebrile 24 hours. CBC improved from 1.9-->3.1. (3) Acute kidney injury Status: Resolved Plan: Resolving. Continue to trend creatinine. (4) MDS (myelodysplastic syndrome) Status: Chronic Plan: WBC on admission 1.6, decreased from about 7.1 on 11 December. Patient tends to be leukopenic at about 3 or 4. Bands neutrophils 20%, which could be appropriate response to myelosuppression or infectious etiology Consulted hematology/oncology : Recommended continuing antibiotics per ID, monitor CBC, consider adding Neupogen if worsening neutropenia or he has recurrent fevers. (5) Hyperlipidemia Status: Chronic Plan: Continue home statin, fenofibrate (6) Glaucoma Status: Chronic Plan: Continue home eyedrops (7) FEN/PPX Status: Acute Plan: Fluids: Tolerating by mouth diet, discontinue fluids. Electrolytes: Aggressively repleting Mg and K+ and following BMP. Potassium corrected to 3.8. Magnesium at 1.5. Given additional 1 g Mg IV today. Nutrition: Diet regular adult basic DVT: Lovenox 30 mg SQ daily N/V: Zofran 4 mg IV every 6 hours as needed (Mitchell Mendoza MD R2) Problem Qualifiers (1) Leukopenia: Qualified Code: D72.819 - Leukopenia, unspecified type (2) Hyperlipidemia: Qualified Code: E78.2 - Mixed hyperlipidemia Mitchell Mendoza MD R2 Jan 07, 2017 14:05 Margy Keyes MD Jan 09, 2017 15:38
[2017-01-07] MEDS ORDERED: MAGNESIUM SULFATE 1 GM PREMIX 100 ML IV ONE (15:15)
[2017-01-07] MEDS ORDERED: POTASSIUM CHLORIDE 20 MEQ CONTROLLED RELEASE TAB PO ONE (15:15)
--- NOTE | 2017-01-07 15:29 | HHI.IDPN ---
Subjective Subjective Remarks feels better cont to have watery diarrhea, reports 4 watery green BMs since 7 am blood clx remain negative ANC 1200 Antibiotics cipro Allergies: Coded Allergies: No Known Allergies (Unverified , 03/08/15) Objective . Vital Signs Date Time Temp Pulse Resp B/P Pulse Ox O2 Delivery O2 Flow Rate FiO2 01/07/17 12:00 95.9 85 18 124/67 98 01/07/17 08:00 95.9 76 17 107/66 98 01/07/17 04:00 97.3 84 18 151/65 98 01/07/17 02:00 110/60 01/07/17 01:00 95.3 79 18 164/65 95 01/06/17 19:45 96.6 72 18 98/68 98 01/06/17 01/06/17 01/07/17 15:00 23:00 07:00 Intake Total 268 ml 1450 ml Balance 268 ml 1450 ml IV Total 268 ml 1450 ml # Voids 2 # Bowel Movements 2 . Laboratory Tests Test 01/05/17 01/06/17 01/07/17 19:34 10:16 08:21 Hemoglobin 9.3 GM/DL 9.3 GM/DL 10.1 GM/DL Hematocrit 26.4 % 27.8 % 30.6 % White Blood Count 1.9 TH/MM3 3.1 TH/MM3 Red Blood Count 2.78 MIL/MM3 3.04 MIL/MM3 Mean Corpuscular Volume 100.0 FL 100.5 FL Mean Corpuscular Hemoglobin 33.6 PG 33.1 PG Mean Corpuscular Hemoglobin 33.6 % 32.9 % Concent Red Cell Distribution Width 17.4 % 17.5 % Platelet Count 322 TH/MM3 485 TH/MM3 Mean Platelet Volume 8.6 FL 8.8 FL Neutrophils (%) (Auto) 52.0 % 51.0 % Lymphocytes (%) (Auto) 34.8 % 34.3 % Monocytes (%) (Auto) 11.5 % 11.9 % Eosinophils (%) (Auto) 0.8 % 1.2 % Basophils (%) (Auto) 0.9 % 1.6 % Neutrophils # (Auto) 1.0 TH/MM3 1.6 TH/MM3 Lymphocytes # (Auto) 0.7 TH/MM3 1.1 TH/MM3 Monocytes # (Auto) 0.2 TH/MM3 0.4 TH/MM3 Eosinophils # (Auto) 0.0 TH/MM3 0.0 TH/MM3 Basophils # (Auto) 0.0 TH/MM3 0.1 TH/MM3 CBC Comment AUTO DIFF AUTO DIFF Differential Total Cells 100 100 Counted Neutrophils % (Manual) 28 % 20 % Band Neutrophils % 12 % 18 % Lymphocytes % 42 % 40 % Monocytes % 10 % 18 % Eosinophils % 2 % Basophils % 4 % 2 % Neutrophils # (Manual) 0.8 TH/MM3 1.2 TH/MM3 Myelocytes 1 % 1 % Promyelocytes 1 % Differential Comment FINAL DIFF FINAL DIFF MANUAL MANUAL Platelet Estimate NORMAL HIGH Platelet Morphology Comment NORMAL NORMAL Ovalocytes 1+ 1+ Metamyelocytes 1 % Nucleated Red Blood Cells 1 /100 WBC Toxic Granulation 2+ Acanthocytes OCC Laboratory Tests Test 01/05/17 01/06/17 01/06/17 01/07/17 19:34 10:16 14:23 08:21 Sodium Level 140 MEQ/L 142 MEQ/L 146 MEQ/L Potassium Level 2.6 MEQ/L 3.2 MEQ/L 3.8 MEQ/L Chloride Level 112 MEQ/L 115 MEQ/L 119 MEQ/L Carbon Dioxide Level 16.7 MEQ/L 17.4 MEQ/L 18.5 MEQ/L Anion Gap 11 MEQ/L 10 MEQ/L 9 MEQ/L Blood Urea Nitrogen 17 MG/DL 17 MG/DL 16 MG/DL Creatinine 1.63 MG/DL 1.26 MG/DL 1.25 MG/DL Estimat Glomerular Filtration 42 ML/MIN 56 ML/MIN 57 ML/MIN Rate Random Glucose 131 MG/DL 118 MG/DL 113 MG/DL Calcium Level 8.5 MG/DL 8.9 MG/DL 8.9 MG/DL Magnesium Level 1.7 MG/DL 2.2 MG/DL 1.5 MG/DL Imaging Last Impressions Chest X-Ray 01/04/17 0000 Signed Impressions: Service Date/Time: Wednesday, January 04, 2017 15:04 - CONCLUSION: Postoperative change in the right chest. An acute abnormality is not clearly seen. Angel Yanez MD Abdomen/Pelvis CT 01/04/17 0000 Signed Impressions: Service Date/Time: Wednesday, January 04, 2017 15:13 - CONCLUSION: 1. Mild induration with mildly prominent lymph nodes in the left upper quadrant mesentery. This is nonspecific. The bowel in this region appears unremarkable. 2. Bilateral renal masses likely related to cyst. This could be further evaluated with an ultrasound examination at some point. 3. Scattered colonic diverticula in the sigmoid region without inflammatory change. 4. Postoperative change/scarring at the anterior right lung base. Angel Yanez MD Physical Exam CONSTITUTIONAL/GENERAL: This is an adequately nourished patient, in no apparent distress. SKIN: No jaundice, rashes, or lesions. EYES: Pupils equal and round and reactive. No scleral icterus. CARDIOVASCULAR: Regular rate and rhythm without murmurs, gallops, or rubs. RESPIRATORY/CHEST: Symmetric, unlabored respirations. Clear to auscultation. GASTROINTESTINAL: Abdomen soft, non-tender, nondistended. No hepato-splenomegaly , or palpable masses. MUSCULOSKELETAL: Extremities without clubbing, cyanosis, or edema. No joint tenderness or effusion noted. No calf tenderness. No mottling or clubbing. NEUROLOGICAL: Awake and alert. Non focal PSYCHIATRIC: calm and cooperative Assessment & Plan Remarks Salmonellosis, gastointestinal with persstent diarrhea No e/o bacteremia or extraintesinal salmonellosis MDS, immunosuppresdd cont cipro. Can be switched to PO if blood clx remian negative Because of pt's immunocompromised status minimal duration is 14 days Her can be discharged once his diarrhea improves - monitor blood clx untill final - Monitor for relapse or protractec course Discussed Condition With Dr Keyes Ofelia Vergara MD Jan 07, 2017 15:29
--- NOTE | 2017-01-07 15:37 | HHI.GIFU ---
Subjective Remarks Pt resting in bed, says he feels fine other than diarrhea. Still having greenish watery diarrhea. Objective Vitals I&O Vital Signs Date Time Temp Pulse Resp B/P Pulse Ox O2 Delivery O2 Flow Rate FiO2 01/07/17 12:00 95.9 85 18 124/67 98 01/07/17 08:00 95.9 76 17 107/66 98 01/07/17 04:00 97.3 84 18 151/65 98 01/07/17 02:00 110/60 01/07/17 01:00 95.3 79 18 164/65 95 01/06/17 19:45 96.6 72 18 98/68 98 I/O 01/06/17 01/06/17 01/06/17 01/07/17 01/07/17 01/07/17 07:00 15:00 23:00 07:00 15:00 23:00 Intake Total 1170 ml 268 ml 1450 ml Balance 1170 ml 268 ml 1450 ml IV Total 1170 ml 268 ml 1450 ml # Voids 2 2 # Bowel Movements 3 2 Laboratory Laboratory Tests Test 01/07/17 08:21 White Blood Count 3.1 Red Blood Count 3.04 Hemoglobin 10.1 Hematocrit 30.6 Mean Corpuscular Volume 100.5 Mean Corpuscular Hemoglobin 33.1 Mean Corpuscular Hemoglobin 32.9 Concent Red Cell Distribution Width 17.5 Platelet Count 485 Mean Platelet Volume 8.8 Neutrophils (%) (Auto) 51.0 Lymphocytes (%) (Auto) 34.3 Monocytes (%) (Auto) 11.9 Eosinophils (%) (Auto) 1.2 Basophils (%) (Auto) 1.6 Neutrophils # (Auto) 1.6 Lymphocytes # (Auto) 1.1 Monocytes # (Auto) 0.4 Eosinophils # (Auto) 0.0 Basophils # (Auto) 0.1 CBC Comment AUTO DIFF Differential Total Cells 100 Counted Neutrophils % (Manual) 20 Band Neutrophils % 18 Lymphocytes % 40 Monocytes % 18 Basophils % 2 Neutrophils # (Manual) 1.2 Metamyelocytes 1 Myelocytes 1 Nucleated Red Blood Cells 1 Differential Comment FINAL DIFF MANUAL Toxic Granulation 2+ Platelet Estimate HIGH Platelet Morphology Comment NORMAL Ovalocytes 1+ Acanthocytes OCC Sodium Level 146 Potassium Level 3.8 Chloride Level 119 Carbon Dioxide Level 18.5 Anion Gap 9 Blood Urea Nitrogen 16 Creatinine 1.25 Estimat Glomerular Filtration 57 Rate Random Glucose 113 Calcium Level 8.9 Magnesium Level 1.5 Date/Time Procedure Status Source Growth 01/04/17 14:10 Giardia Antigen (CROW) - Final Complete Stool Stool NEGATIVE - NO GIARDIA ANTIGEN DETECTE... 01/04/17 14:10 - Final Complete Stool Stool Salmonella Species 01/04/17 13:45 Aerobic Blood Culture - Preliminary Resulted Blood Peripheral NO GROWTH IN 3 DAYS 01/04/17 13:45 Anaerobic Blood Culture - Preliminary Resulted Blood Peripheral NO GROWTH IN 3 DAYS Imaging Last Impressions Chest X-Ray 01/04/17 0000 Signed Impressions: Service Date/Time: Wednesday, January 04, 2017 15:04 - CONCLUSION: Postoperative change in the right chest. An acute abnormality is not clearly seen. Angel Yanez MD Abdomen/Pelvis CT 01/04/17 0000 Signed Impressions: Service Date/Time: Wednesday, January 04, 2017 15:13 - CONCLUSION: 1. Mild induration with mildly prominent lymph nodes in the left upper quadrant mesentery. This is nonspecific. The bowel in this region appears unremarkable. 2. Bilateral renal masses likely related to cyst. This could be further evaluated with an ultrasound examination at some point. 3. Scattered colonic diverticula in the sigmoid region without inflammatory change. 4. Postoperative change/scarring at the anterior right lung base. Angel Yanez MD Physical Exam HEENT: PERRL; normocephalic; atraumatic; no jaundice. CHEST: CTA CARDIAC: RRR ABDOMEN: Soft, nondistended, nontender; no hepatosplenomegaly EXTREMITIES: No clubbing, cyanosis, or edema. SKIN: Normal; no rash; no jaundice. MANAGER ENROLLMENT: No focal deficits; alert and oriented times three. Assessment and Plan Plan ASSESSMENT - diarrhea - improving gradually. onset 4d ago. stool pos for salmonella. On cipro, flagyl. - abnormal finding CT - hx neuroendocrine tumor. 1. Mild induration with mildly prominent lymph nodes in the left upper quadrant mesentery. This is nonspecific. The bowel in this region appears unremarkable. PLAN - continue abx - await chromogranin A, VIP, gastrin - supportive care - further recommendations to follow This pt seen by myself and Dr Traylor and this note is written on his behalf. Nyla Novak Jan 07, 2017 15:37
[2017-01-07] MEDS: ENOXAPARIN SODIUM 30 MG/0.3 ML SYRINGE SQ SCH (21:43)
[2017-01-07] MEDS: ALPRAZolam 1 MG TAB PO SCH (21:43)
[2017-01-07] MEDS: LATANOPROST 0.005% OPHT SOLN 2.5 ML BTL EACH EYE SCH (21:46)
[2017-01-08] VITALS: BP 114/65; PULSE 71; RESP 16; TEMP 98.7; O2SAT 99
[2017-01-08 04:00] VITALS: BP 108/64; PULSE 77; RESP 18; TEMP 97; O2SAT 99
[2017-01-08] MEDS: CIPROFLOXACIN 400 MG PREMIX 200 ML IV SCH ×2 (04:54→17:53)
[2017-01-08] MEDS: LEVOTHYROXINE SODIUM 150 MCG TAB PO SCH (04:54)
[2017-01-08] MEDS: METOPROLOL TARTRATE 25 MG TAB PO SCH ×2 (08:10→20:24)
[2017-01-08] MEDS: ATORVASTATIN 40 MG TAB PO SCH (08:10)
[2017-01-08] MEDS: ASPIRIN EC 81 MG TABEC PO SCH (08:10)
[2017-01-08] MEDS: FENOFIBRATE 145 MG TAB PO SCH (08:10)
[2017-01-08] MEDS: SODIUM CHLORIDE 0.9% FLUSH 10 ML FLUSH IV FLUSH SCH ×2 (08:10→20:24)
[2017-01-08] MEDS: PANTOPRAZOLE SOD 40 MG DELAYED RELEASE TAB PO SCH ×2 (08:10→20:24)
[2017-01-08 08:36] VITALS: BP 159/78; PULSE 83; RESP 20; TEMP 95.5; O2SAT 99
[2017-01-08 09:04] LABS: AUTOMATED NEUTROPHIL # 2.3 TH/MM3 (1.8-7.7); BASOPHIL # 0.1 TH/MM3 (0-0.2); BASOPHIL % 1.4 % (0.0-2.0); EOSINOPHIL % 0.7 % (0.0-4.0); HEMATOCRIT 30.2 % (39.0-51.0); LYMPHOCYTE # 1.8 TH/MM3 (1.0-4.8); MEAN CELL VOLUME 100.1 FL (80.0-100.0); MEAN CORPUSCULAR HEMOGLOBIN 33.4 PG (27.0-34.0); MEAN CORPUSCULAR HGB CONC 33.4 % (32.0-36.0); MONO % 13.7 % (0.0-8.0); NEUT % 47.2 % (16.0-70.0); PLATELET COUNT 609 TH/MM3 (150-450); RED BLOOD COUNT 3.02 MIL/MM3 (4.50-5.90); RED CELL DISTRIBUTION WIDTH 17.1 % (11.6-17.2)
[2017-01-08 09:10] LABS: HEMO FLAGS AUTO DIFF
[2017-01-08 09:18] LABS: BICARBONATE 16.6 MEQ/L (21.0-32.0); MAGNESIUM 1.5 MG/DL (1.5-2.5); POTASSIUM 3.5 MEQ/L (3.5-5.1)
--- NOTE | 2017-01-08 09:28 | HHI.FPPN ---
Subjective Remarks No acute events overnight. Afebrile. VSS. Patient with 8 episodes of diarrhea overnight. Denies N/V. No subjective fevers/chills. (Kenia Aleman MD R3) Objective Vitals Vital Signs Date Time Temp Pulse Resp B/P Pulse Ox O2 Delivery O2 Flow Rate FiO2 01/08/17 08:36 95.5 83 20 159/78 99 01/08/17 04:00 97.0 77 18 108/64 99 01/08/17 00:00 98.7 71 16 114/65 99 01/08/17 00:00 98.7 71 16 114/65 99 01/07/17 20:00 97.0 72 20 123/78 95 01/07/17 16:00 95.9 81 18 113/61 99 01/07/17 12:00 95.9 85 18 124/67 98 I/O 01/07/17 01/07/17 01/07/17 01/08/17 01/08/17 01/08/17 07:00 15:00 23:00 07:00 15:00 23:00 Intake Total 1450 ml 1200 ml 1374 ml 200 ml Balance 1450 ml 1200 ml 1374 ml 200 ml Intake Oral 1200 ml IV Total 1450 ml 1374 ml 200 ml # Voids 3 # Bowel Movements 2 (Kenia Aleman MD R3) Result Diagram: 01/08/17 0820 01/08/17 0820 Objective Remarks Gen.: No acute distress Head: Normocephalic. Atraumatic. EENT: Pupils equal round and reactive to light. Nose without drainage. Airway intact. Throat without injection. Cardiovascular: Regular rate and rhythm. No murmurs, rubs or gallops. Respiratory: Lungs clear to auscultation bilaterally. No wheezes or rhonchi. Abdomen: Soft, nontender, nondistended. No peritoneal signs. Musculoskeletal: No gross deformities. No edema. Skin: No obvious rashes or erythema. Neuro: Sensory and motor grossly intact. Cranial nerves II through XII grossly intact. Psych: Appropriate mood and affect (Kenia Aleman MD R3) A/P Assessment and Plan 71-year-old male with past medical history significant for mild dysplastic syndrome presenting with: Discharge Planning To home with 2 weeks of Cipro once diarrhea improves. (Kenia Aleman MD R3) Attending Attestation Patient seen and examined Case reviewed and discussed Agree with plan of care as discussed with me and documented in the resident note. (Margy Keyes MD) Problem List: (1) Salmonella Status: Acute Plan: Patient positive for salmonella. Hemoccult negative. Blood cultures no growth 3 day. - Cipro 400 mg IV every 12 hours, per ID recommendations continue Cipro x 2 weeks - DC Flagyl - Creatinine clearance 40 due to JOSE J (see below), renally dosed medicines - Gastroenterology consulted, appreciate recommendations - ID consulted given patient's leukopenia and persistent fevers, appreciate recommendations - DC once diarrhea improves (2) Leukopenia Status: Acute Plan: Patient with known MDS. Afebrile 24 hours. WBC improved from 1.9-->5.0 (3) Acute kidney injury Status: Resolved Plan: Resolved with IVFs. (4) MDS (myelodysplastic syndrome) Status: Chronic Plan: WBC on admission 1.6, decreased from about 7.1 on 11 December. Patient tends to be leukopenic at about 3 or 4. Bands neutrophils 20%, which could be appropriate response to myelosuppression or infectious etiology Consulted hematology/oncology: Recommended continuing antibiotics per ID, monitor CBC, consider adding Neupogen if worsening neutropenia or he has recurrent fevers. (5) Hyperlipidemia Status: Chronic Plan: Continue home statin, fenofibrate (6) Glaucoma Status: Chronic Plan: Continue home eyedrops (7) FEN/PPX Status: Acute Plan: Fluids: Tolerating by mouth diet, HLIV Electrolytes: Normalized. Continue to replete prn. Nutrition: Diet regular adult basic DVT: Lovenox 30 mg SQ daily N/V: Zofran 4 mg IV every 6 hours as needed (Kenia Aleman MD R3) Problem Qualifiers (1) Leukopenia: Qualified Code: D72.819 - Leukopenia, unspecified type (2) Hyperlipidemia: Qualified Code: E78.2 - Mixed hyperlipidemia Kenia Aleman MD R3 Jan 08, 2017 09:28 Margy Keyes MD Jan 09, 2017 15:38
[2017-01-08] MEDS ORDERED: POTASSIUM CHLORIDE 20 MEQ CONTROLLED RELEASE TAB PO ONE (09:30)
--- NOTE | 2017-01-08 09:50 | PD.ONC.PN ---
Subjective Subjective Remarks Afebrile overnight. Patient resting in room. Just finished showering. Had three episodes of diarrhea overnight. Otherwise feels well. Objective Data Date Time Temp Pulse Resp B/P Pulse Ox O2 Delivery O2 Flow Rate FiO2 01/08/17 08:36 95.5 83 20 159/78 99 01/08/17 04:00 97.0 77 18 108/64 99 01/08/17 00:00 98.7 71 16 114/65 99 01/08/17 00:00 98.7 71 16 114/65 99 01/07/17 20:00 97.0 72 20 123/78 95 01/07/17 16:00 95.9 81 18 113/61 99 01/07/17 12:00 95.9 85 18 124/67 98 01/08/17 01/08/17 01/08/17 07:00 15:00 23:00 Intake Total 200 ml Balance 200 ml Result Diagram: 01/08/17 0820 01/08/17 0820 Laboratory Results Laboratory Tests Test 01/08/17 08:20 White Blood Count 5.0 TH/MM3 Red Blood Count 3.02 MIL/MM3 Hemoglobin 10.1 GM/DL Hematocrit 30.2 % Mean Corpuscular Volume 100.1 FL Mean Corpuscular Hemoglobin 33.4 PG Mean Corpuscular Hemoglobin 33.4 % Concent Red Cell Distribution Width 17.1 % Platelet Count 609 TH/MM3 Mean Platelet Volume 8.7 FL Neutrophils (%) (Auto) 47.2 % Lymphocytes (%) (Auto) 37.0 % Monocytes (%) (Auto) 13.7 % Eosinophils (%) (Auto) 0.7 % Basophils (%) (Auto) 1.4 % Neutrophils # (Auto) 2.3 TH/MM3 Lymphocytes # (Auto) 1.8 TH/MM3 Monocytes # (Auto) 0.7 TH/MM3 Eosinophils # (Auto) 0.0 TH/MM3 Basophils # (Auto) 0.1 TH/MM3 CBC Comment AUTO DIFF Sodium Level 143 MEQ/L Potassium Level 3.5 MEQ/L Chloride Level 116 MEQ/L Carbon Dioxide Level 16.6 MEQ/L Anion Gap 10 MEQ/L Blood Urea Nitrogen 13 MG/DL Creatinine 1.19 MG/DL Estimat Glomerular Filtration 60 ML/MIN Rate Random Glucose 100 MG/DL Calcium Level 8.6 MG/DL Magnesium Level 1.5 MG/DL Administered Medications Medications (Trade) Dose Ordered Sig/Lori Route PRN Reason Start Time Stop Time Status Last Admin Dose Admin Sodium Chloride 2 ml 2 ml BID IV FLUSH 01/04/17 21:00 01/08/17 08:10 Sodium Chloride (NS 1000 ml Inj) 1,000 ml @ 125 mls/hr Q8H IV 01/04/17 18:14 Hold 01/07/17 02:14 Enoxaparin Sodium 30 mg 30 mg Q24H SQ 01/04/17 20:00 01/07/17 21:43 Ciprofloxacin/ Dextrose (Cipro 400 Mg Premix) 200 ml @ 200 mls/hr Q12H IV 01/04/17 05:00 01/08/17 04:54 Alprazolam (Xanax) 1 mg HS PO 01/04/17 21:00 01/07/17 21:43 Aspirin (Ecotrin Ec) 81 mg DAILY PO 01/05/17 09:00 01/08/17 08:10 Latanoprost (Xalatan 0.005% Opt Soln) 1 drop HS EACH EYE 01/04/17 21:00 01/07/17 21:46 Levothyroxine Sodium (Synthroid) 150 mcg DAILY@06 PO 01/05/17 06:00 01/08/17 04:54 Metoprolol Tartrate (Lopressor) 25 mg BID PO 01/04/17 21:00 01/05/17 20:51 Fenofibrate (Tricor) 145 mg DAILY PO 01/05/17 09:00 01/08/17 08:10 Pantoprazole Sodium (Protonix) 40 mg BID PO 01/04/17 21:00 01/08/17 08:10 Atorvastatin Calcium (Lipitor) 40 mg DAILY PO CM 01/05/17 09:00 01/08/17 08:10 Objective Remarks GENERAL: Elderly male, sitting up in bed in [facility]. SKIN: Warm and dry. HEAD: Normocephalic. EYES: No injection or drainage. NECK: Supple, trachea midline. CARDIOVASCULAR: Regular rate and rhythm RESPIRATORY: Breath sounds equal bilaterally. No accessory muscle use. GASTROINTESTINAL: Abdomen soft, non-tender, nondistended. EXTREMITIES: No cyanosis NEUROLOGICAL: awake and alert, normal speech. moving all extremities. Assessment/Plan Problem List: (1) Neutropenic fever Status: Resolved Plan: -- likely developed neutropenia due to his recent Vidaza. --last cycle of Vidaza was from December 15 to December 20. ++salmonella infection. --blood cell counts improving. (2) MDS (myelodysplastic syndrome) Status: Chronic Plan: --Myelodysplastic syndrome with IPSS score 2. --has been on Vidaza since October of 2015. --does not require transfusion at this time. --No evidence of transformation to acute leukemia at this time. Assessment 71y/o male with myelodysplastic syndrome, admitted with diarrhea, neutropenic fever. h/o Myelodysplastic syndrome. 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 Chronic kidney disease. Chronic obstructive pulmonary disease. Glaucoma. Hyperlipidemia. Hemochromatosis. Small bowel angiodysplasia. Plan 1. monitor CBC 2. continue abx 3. follow up with Dr. Weeks once discharged Attending Statement The exam, history, and the medical decision-making described in the above note were completed with the assistance of the mid-level provider. I reviewed and agree with the findings presented. I attest that I had a [id number] encounter with the patient on the same day, and personally performed and documented my assessment and findings in the medical record. Feeling better. Still has diarrhea but less volume. WBC trended up to normal and no longer neutropenic. Platelets are elevated due to reactive process. Can be d/c from heme standpoint when clear by ID. Karrie Solis Jan 08, 2017 09:50 Cristobal Ness MD Jan 08, 2017 15:38
[2017-01-08 10:43] LABS: BANDS 21 % (0-6); BASOPHILS 5 % (0-2); CORRECTED NUCLEATED RBC 4 /100 WBC (0-0); METAMYELOCYTES 3 % (0-1); MYELOCYTES 1 % (0-0); NEUTROPHIL # MANUAL DIFF 2.8 TH/MM3 (1.8-7.7); POLYS (SEG NEUTROPHILS) 31 % (16-70); WBC DIFF SAMPLE 100
[2017-01-08 10:44] LABS: PLATELET ESTIMATE SMEAR HIGH (NORMAL); PLATELET MORPHOLOGY NORMAL (NORMAL); SCAN/DIFF FINAL DIFF MANUAL; TOXIC GRANULATION 2+ (NORMAL)
[2017-01-08] MEDS: MAGNESIUM OXIDE 400 MG TAB PO SCH ×2 (11:40→20:24)
--- NOTE | 2017-01-08 12:07 | HHI.IDPN ---
Subjective Subjective Remarks feels better cont to have small vomume greenish diarrhea, reports 4 watery green BMs since midnight blood clx remain negative WBC 5K afebrile Antibiotics cipro Allergies: Coded Allergies: No Known Allergies (Unverified , 03/08/15) Objective . Vital Signs Date Time Temp Pulse Resp B/P Pulse Ox O2 Delivery O2 Flow Rate FiO2 01/08/17 08:36 95.5 83 20 159/78 99 01/08/17 04:00 97.0 77 18 108/64 99 01/08/17 00:00 98.7 71 16 114/65 99 01/08/17 00:00 98.7 71 16 114/65 99 01/07/17 20:00 97.0 72 20 123/78 95 01/07/17 16:00 95.9 81 18 113/61 99 01/07/17 01/07/17 01/08/17 15:00 23:00 07:00 Intake Total 1200 ml 1374 ml 200 ml Balance 1200 ml 1374 ml 200 ml Intake Oral 1200 ml IV Total 1374 ml 200 ml # Voids 3 # Bowel Movements 2 . Laboratory Tests Test 01/07/17 01/08/17 08:21 08:20 White Blood Count 3.1 TH/MM3 5.0 TH/MM3 Red Blood Count 3.04 MIL/MM3 3.02 MIL/MM3 Hemoglobin 10.1 GM/DL 10.1 GM/DL Hematocrit 30.6 % 30.2 % Mean Corpuscular Volume 100.5 FL 100.1 FL Mean Corpuscular Hemoglobin 33.1 PG 33.4 PG Mean Corpuscular Hemoglobin 32.9 % 33.4 % Concent Red Cell Distribution Width 17.5 % 17.1 % Platelet Count 485 TH/MM3 609 TH/MM3 Mean Platelet Volume 8.8 FL 8.7 FL Neutrophils (%) (Auto) 51.0 % 47.2 % Lymphocytes (%) (Auto) 34.3 % 37.0 % Monocytes (%) (Auto) 11.9 % 13.7 % Eosinophils (%) (Auto) 1.2 % 0.7 % Basophils (%) (Auto) 1.6 % 1.4 % Neutrophils # (Auto) 1.6 TH/MM3 2.3 TH/MM3 Lymphocytes # (Auto) 1.1 TH/MM3 1.8 TH/MM3 Monocytes # (Auto) 0.4 TH/MM3 0.7 TH/MM3 Eosinophils # (Auto) 0.0 TH/MM3 0.0 TH/MM3 Basophils # (Auto) 0.1 TH/MM3 0.1 TH/MM3 CBC Comment AUTO DIFF AUTO DIFF Differential Total Cells 100 100 Counted Neutrophils % (Manual) 20 % 31 % Band Neutrophils % 18 % 21 % Lymphocytes % 40 % 29 % Monocytes % 18 % 10 % Basophils % 2 % 5 % Neutrophils # (Manual) 1.2 TH/MM3 2.8 TH/MM3 Metamyelocytes 1 % 3 % Myelocytes 1 % 1 % Nucleated Red Blood Cells 1 /100 WBC 4 /100 WBC Differential Comment FINAL DIFF FINAL DIFF MANUAL MANUAL Toxic Granulation 2+ 2+ Platelet Estimate HIGH HIGH Platelet Morphology Comment NORMAL NORMAL Ovalocytes 1+ Acanthocytes OCC Laboratory Tests Test 01/06/17 01/07/17 01/08/17 14:23 08:21 08:20 Magnesium Level 2.2 MG/DL 1.5 MG/DL 1.5 MG/DL Sodium Level 146 MEQ/L 143 MEQ/L Potassium Level 3.8 MEQ/L 3.5 MEQ/L Chloride Level 119 MEQ/L 116 MEQ/L Carbon Dioxide Level 18.5 MEQ/L 16.6 MEQ/L Anion Gap 9 MEQ/L 10 MEQ/L Blood Urea Nitrogen 16 MG/DL 13 MG/DL Creatinine 1.25 MG/DL 1.19 MG/DL Estimat Glomerular Filtration 57 ML/MIN 60 ML/MIN Rate Random Glucose 113 MG/DL 100 MG/DL Calcium Level 8.9 MG/DL 8.6 MG/DL Imaging Last Impressions Chest X-Ray 01/04/17 0000 Signed Impressions: Service Date/Time: Wednesday, January 04, 2017 15:04 - CONCLUSION: Postoperative change in the right chest. An acute abnormality is not clearly seen. Angel Yanez MD Abdomen/Pelvis CT 01/04/17 0000 Signed Impressions: Service Date/Time: Wednesday, January 04, 2017 15:13 - CONCLUSION: 1. Mild induration with mildly prominent lymph nodes in the left upper quadrant mesentery. This is nonspecific. The bowel in this region appears unremarkable. 2. Bilateral renal masses likely related to cyst. This could be further evaluated with an ultrasound examination at some point. 3. Scattered colonic diverticula in the sigmoid region without inflammatory change. 4. Postoperative change/scarring at the anterior right lung base. Angel Yanez MD Physical Exam CONSTITUTIONAL/GENERAL: This is an adequately nourished patient, in no apparent distress. SKIN: No jaundice, rashes, or lesions. EYES: Pupils equal and round and reactive. No scleral icterus. CARDIOVASCULAR: Regular rate and rhythm without murmurs, gallops, or rubs. RESPIRATORY/CHEST: Symmetric, unlabored respirations. Clear to auscultation. GASTROINTESTINAL: Abdomen soft, non-tender, nondistended. No hepato-splenomegaly , or palpable masses. MUSCULOSKELETAL: Extremities without clubbing, cyanosis, or edema. No joint tenderness or effusion noted. No calf tenderness. No mottling or clubbing. NEUROLOGICAL: Awake and alert. Non focal PSYCHIATRIC: calm and cooperative Assessment & Plan Remarks Salmonellosis, gastointestinal with persstent diarrhea No e/o bacteremia or extraintesinal salmonellosis MDS, immunosuppresd, WBC nl today cont cipro. Can be switched to PO if blood clx remian negative Because of pt's immunocompromised status minimal duration is 14 days Her can be discharged once his diarrhea improves - monitor blood clx untill final - Monitor for relapse or protractec course Discussed Condition With Domenic,Ofelia Rodriguez MD Jan 08, 2017 12:07
[2017-01-08 12:27] VITALS: BP 128/74; PULSE 87; RESP 20; TEMP 95.7
[2017-01-08 15:46] VITALS: BP 111/68; PULSE 84; RESP 20; TEMP 96.8; O2SAT 100
--- NOTE | 2017-01-08 16:45 | HHI.GIFU ---
Subjective Remarks Pt resting in bed, visiting with . Says his diarrhea still present but seems to be improving, 3 BM today. Objective Vitals I&O Vital Signs Date Time Temp Pulse Resp B/P Pulse Ox O2 Delivery O2 Flow Rate FiO2 01/08/17 15:46 96.8 84 20 111/68 100 01/08/17 12:27 95.7 87 20 128/74 01/08/17 08:36 95.5 83 20 159/78 99 01/08/17 04:00 97.0 77 18 108/64 99 01/08/17 00:00 98.7 71 16 114/65 99 01/08/17 00:00 98.7 71 16 114/65 99 01/07/17 20:00 97.0 72 20 123/78 95 I/O 01/07/17 01/07/17 01/07/17 01/08/17 01/08/17 01/08/17 07:00 15:00 23:00 07:00 15:00 23:00 Intake Total 1450 ml 1200 ml 1374 ml 200 ml 960 ml Balance 1450 ml 1200 ml 1374 ml 200 ml 960 ml Intake Oral 1200 ml 960 ml IV Total 1450 ml 1374 ml 200 ml # Voids 3 4 # Bowel Movements 2 1 Laboratory Laboratory Tests Test 01/08/17 08:20 White Blood Count 5.0 Red Blood Count 3.02 Hemoglobin 10.1 Hematocrit 30.2 Mean Corpuscular Volume 100.1 Mean Corpuscular Hemoglobin 33.4 Mean Corpuscular Hemoglobin 33.4 Concent Red Cell Distribution Width 17.1 Platelet Count 609 Mean Platelet Volume 8.7 Neutrophils (%) (Auto) 47.2 Lymphocytes (%) (Auto) 37.0 Monocytes (%) (Auto) 13.7 Eosinophils (%) (Auto) 0.7 Basophils (%) (Auto) 1.4 Neutrophils # (Auto) 2.3 Lymphocytes # (Auto) 1.8 Monocytes # (Auto) 0.7 Eosinophils # (Auto) 0.0 Basophils # (Auto) 0.1 CBC Comment AUTO DIFF Differential Total Cells 100 Counted Neutrophils % (Manual) 31 Band Neutrophils % 21 Lymphocytes % 29 Monocytes % 10 Basophils % 5 Neutrophils # (Manual) 2.8 Metamyelocytes 3 Myelocytes 1 Nucleated Red Blood Cells 4 Differential Comment FINAL DIFF MANUAL Toxic Granulation 2+ Platelet Estimate HIGH Platelet Morphology Comment NORMAL Sodium Level 143 Potassium Level 3.5 Chloride Level 116 Carbon Dioxide Level 16.6 Anion Gap 10 Blood Urea Nitrogen 13 Creatinine 1.19 Estimat Glomerular Filtration 60 Rate Random Glucose 100 Calcium Level 8.6 Magnesium Level 1.5 Date/Time Procedure Status Source Growth 01/04/17 14:10 Giardia Antigen (CROW) - Final Complete Stool Stool NEGATIVE - NO GIARDIA ANTIGEN DETECTE... 01/04/17 14:10 - Final Complete Stool Stool Salmonella Species 01/04/17 13:45 Aerobic Blood Culture - Preliminary Resulted Blood Peripheral NO GROWTH IN 4 DAYS 01/04/17 13:45 Anaerobic Blood Culture - Preliminary Resulted Blood Peripheral NO GROWTH IN 4 DAYS Imaging Last Impressions Chest X-Ray 01/04/17 0000 Signed Impressions: Service Date/Time: Wednesday, January 04, 2017 15:04 - CONCLUSION: Postoperative change in the right chest. An acute abnormality is not clearly seen. Angel Yanez MD Abdomen/Pelvis CT 01/04/17 0000 Signed Impressions: Service Date/Time: Wednesday, January 04, 2017 15:13 - CONCLUSION: 1. Mild induration with mildly prominent lymph nodes in the left upper quadrant mesentery. This is nonspecific. The bowel in this region appears unremarkable. 2. Bilateral renal masses likely related to cyst. This could be further evaluated with an ultrasound examination at some point. 3. Scattered colonic diverticula in the sigmoid region without inflammatory change. 4. Postoperative change/scarring at the anterior right lung base. Angel Yanez MD Physical Exam HEENT: PERRL; normocephalic; atraumatic; no jaundice. CHEST: CTA CARDIAC: RRR ABDOMEN: Soft, nondistended, nontender; no hepatosplenomegaly EXTREMITIES: No clubbing, cyanosis, or edema. SKIN: Normal; no rash; no jaundice. ZINC MINER: No focal deficits; alert and oriented times three. Assessment and Plan Plan ASSESSMENT - diarrhea - improving gradually. stool pos for salmonella. On cipro, flagyl. ID following - abnormal finding CT - hx neuroendocrine tumor. 1. Mild induration with mildly prominent lymph nodes in the left upper quadrant mesentery. This is nonspecific. The bowel in this region appears unremarkable. PLAN - continue abx - await chromogranin A, VIP, gastrin - supportive care This pt seen by myself and Dr Traylor and this note is written on his behalf. Nyla Novak Jan 08, 2017 16:45
[2017-01-08 20:00] VITALS: BP 122/75; PULSE 89; RESP 20; TEMP 95.5; O2SAT 100
[2017-01-08] MEDS: ALPRAZolam 1 MG TAB PO SCH (20:23)
[2017-01-08] MEDS: ENOXAPARIN SODIUM 30 MG/0.3 ML SYRINGE SQ SCH (20:23)
[2017-01-08] MEDS: LATANOPROST 0.005% OPHT SOLN 2.5 ML BTL EACH EYE SCH (20:25)
[2017-01-09] VITALS: BP 108/70; PULSE 73; RESP 20; TEMP 95.9; O2SAT 99
[2017-01-09 04:00] VITALS: BP 101/70; PULSE 83; RESP 20; TEMP 96.7; O2SAT 98
[2017-01-09] MEDS: LEVOTHYROXINE SODIUM 150 MCG TAB PO SCH (05:15)
[2017-01-09] MEDS: CIPROFLOXACIN 400 MG PREMIX 200 ML IV SCH (05:15)
[2017-01-09 08:06] VITALS: BP 107/74; PULSE 68; RESP 20; TEMP 95.7; O2SAT 99
[2017-01-09] MEDS: PANTOPRAZOLE SOD 40 MG DELAYED RELEASE TAB PO SCH (08:55)
[2017-01-09] MEDS: ASPIRIN EC 81 MG TABEC PO SCH (08:55)
[2017-01-09] MEDS: ATORVASTATIN 40 MG TAB PO SCH (08:55)
[2017-01-09] MEDS: MAGNESIUM OXIDE 400 MG TAB PO SCH (08:56)
[2017-01-09] MEDS: FENOFIBRATE 145 MG TAB PO SCH (08:56)
[2017-01-09] MEDS: METOPROLOL TARTRATE 25 MG TAB PO SCH (08:57)
[2017-01-09] MEDS: SODIUM CHLORIDE 0.9% FLUSH 10 ML FLUSH IV FLUSH SCH (08:58)
[2017-01-09 09:33] LABS: AUTOMATED NEUTROPHIL # 3.5 TH/MM3 (1.8-7.7); BASOPHIL # 0.1 TH/MM3 (0-0.2); BASOPHIL % 1.1 % (0.0-2.0); EOSINOPHIL # 0.1 TH/MM3 (0-0.4); HEMATOCRIT 31.4 % (39.0-51.0); LYMPH % 35.2 % (9.0-44.0); LYMPHOCYTE # 2.5 TH/MM3 (1.0-4.8); MEAN CELL VOLUME 97.7 FL (80.0-100.0); MEAN CORPUSCULAR HEMOGLOBIN 33.4 PG (27.0-34.0); MEAN CORPUSCULAR HGB CONC 34.2 % (32.0-36.0); MONO % 12.5 % (0.0-8.0); NEUT % 50.2 % (16.0-70.0); PLATELET COUNT 781 TH/MM3 (150-450); RED BLOOD COUNT 3.22 MIL/MM3 (4.50-5.90); RED CELL DISTRIBUTION WIDTH 17.1 % (11.6-17.2)
[2017-01-09 09:40] LABS: HEMO FLAGS AUTO DIFF
--- NOTE | 2017-01-09 09:46 | PD.ONC.PN ---
Subjective Subjective Remarks Afebrile overnight. Patient upright in room. and son at bedside. 3 episodes diarrhea overnight. Hoping to go home soon. Objective Data Date Time Temp Pulse Resp B/P Pulse Ox O2 Delivery O2 Flow Rate FiO2 01/09/17 08:06 95.7 68 20 107/74 99 01/09/17 04:00 96.7 83 20 101/70 98 01/09/17 00:00 95.9 73 20 108/70 99 01/08/17 20:00 95.5 89 20 122/75 100 01/08/17 15:46 96.8 84 20 111/68 100 01/08/17 12:27 95.7 87 20 128/74 01/09/17 01/09/17 01/09/17 07:00 15:00 23:00 Intake Total 320 ml Balance 320 ml Result Diagram: 01/09/17 0815 01/08/17 0820 Laboratory Results Laboratory Tests Test 01/09/17 08:15 White Blood Count 7.0 TH/MM3 Red Blood Count 3.22 MIL/MM3 Hemoglobin 10.8 GM/DL Hematocrit 31.4 % Mean Corpuscular Volume 97.7 FL Mean Corpuscular Hemoglobin 33.4 PG Mean Corpuscular Hemoglobin 34.2 % Concent Red Cell Distribution Width 17.1 % Platelet Count 781 TH/MM3 Mean Platelet Volume 8.4 FL Neutrophils (%) (Auto) 50.2 % Lymphocytes (%) (Auto) 35.2 % Monocytes (%) (Auto) 12.5 % Eosinophils (%) (Auto) 1.0 % Basophils (%) (Auto) 1.1 % Neutrophils # (Auto) 3.5 TH/MM3 Lymphocytes # (Auto) 2.5 TH/MM3 Monocytes # (Auto) 0.9 TH/MM3 Eosinophils # (Auto) 0.1 TH/MM3 Basophils # (Auto) 0.1 TH/MM3 CBC Comment AUTO DIFF Administered Medications Medications (Trade) Dose Ordered Sig/Lori Route PRN Reason Start Time Stop Time Status Last Admin Dose Admin Sodium Chloride 2 ml 2 ml BID IV FLUSH 01/04/17 21:00 01/09/17 08:58 Sodium Chloride (NS 1000 ml Inj) 1,000 ml @ 125 mls/hr Q8H IV 01/04/17 18:14 Hold 01/07/17 02:14 Enoxaparin Sodium 30 mg 30 mg Q24H SQ 01/04/17 20:00 01/08/17 20:23 Ciprofloxacin/ Dextrose (Cipro 400 Mg Premix) 200 ml @ 200 mls/hr Q12H IV 01/04/17 05:00 01/09/17 05:15 Alprazolam (Xanax) 1 mg HS PO 01/04/17 21:00 01/08/17 20:23 Aspirin (Ecotrin Ec) 81 mg DAILY PO 01/05/17 09:00 01/09/17 08:55 Latanoprost (Xalatan 0.005% Opt Soln) 1 drop HS EACH EYE 01/04/17 21:00 01/08/17 20:25 Levothyroxine Sodium (Synthroid) 150 mcg DAILY@06 PO 01/05/17 06:00 01/09/17 05:15 Metoprolol Tartrate (Lopressor) 25 mg BID PO 01/04/17 21:00 01/05/17 20:51 Fenofibrate (Tricor) 145 mg DAILY PO 01/05/17 09:00 01/09/17 08:56 Pantoprazole Sodium (Protonix) 40 mg BID PO 01/04/17 21:00 01/09/17 08:55 Atorvastatin Calcium (Lipitor) 40 mg DAILY PO CM 01/05/17 09:00 01/09/17 08:55 Magnesium Oxide (Mag-Ox) 400 mg Q12HR PO 01/08/17 09:30 01/09/17 08:56 Objective Remarks GENERAL: Elderly male, upright in bed in [facility]. SKIN: Warm and dry. IV right arm HEAD: Normocephalic. EYES: No injection or drainage. NECK: Supple, trachea midline. CARDIOVASCULAR: Regular rate and rhythm RESPIRATORY: Breath sounds equal bilaterally. No accessory muscle use. GASTROINTESTINAL: Abdomen soft, non-tender, nondistended. EXTREMITIES: No cyanosis NEUROLOGICAL: aox3, normal speech. moving all extremities. Assessment/Plan Problem List: (1) Neutropenic fever Status: Resolved Plan: -- likely developed neutropenia due to his recent Vidaza. --last cycle of Vidaza was from December 15 to December 20. ++salmonella infection. --blood cell counts improving. (2) MDS (myelodysplastic syndrome) Status: Chronic Plan: --Myelodysplastic syndrome with IPSS score 2. --has been on Vidaza since October of 2015. --does not require transfusion at this time. --No evidence of transformation to acute leukemia at this time. Assessment 71y/o male with myelodysplastic syndrome, admitted with diarrhea, neutropenic fever. h/o Myelodysplastic syndrome. 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 Chronic kidney disease. Chronic obstructive pulmonary disease. Glaucoma. Hyperlipidemia. Hemochromatosis. Small bowel angiodysplasia. Plan 1. monitor CBC 2. continue abx 3. clear for discharge-->follow up with Dr. Weeks once discharged Attending Statement The exam, history, and the medical decision-making described in the above note were completed with the assistance of the mid-level provider. I reviewed and agree with the findings presented. I attest that I had a [id number] encounter with the patient on the same day, and personally performed and documented my assessment and findings in the medical record.Feeling better. Diarrhea improvinf Neutropenia resolved. Can be d/c from hematology standpoint when clear by ID. Karrie Solis Jan 09, 2017 09:45 Cristobal Ness MD Jan 09, 2017 17:13
[2017-01-09 09:55] LABS: BICARBONATE 18.3 MEQ/L (21.0-32.0); MAGNESIUM 1.4 MG/DL (1.5-2.5); POTASSIUM 3.9 MEQ/L (3.5-5.1)
[2017-01-09 10:49] LABS: BANDS 26 % (0-6); BASOPHILS 2 % (0-2); CORRECTED NUCLEATED RBC 1 /100 WBC (0-0); METAMYELOCYTES 4 % (0-1); MYELOCYTES 1 % (0-0); NEUTROPHIL # MANUAL DIFF 3.9 TH/MM3 (1.8-7.7); POLYS (SEG NEUTROPHILS) 24 % (16-70); PROMYELOCYTES 1 % (0-0); WBC DIFF SAMPLE 100
[2017-01-09 10:50] LABS: OVALOCYTES 1+ (NORMAL); PLATELET ESTIMATE SMEAR HIGH (NORMAL); PLATELET MORPHOLOGY NORMAL (NORMAL); SCAN/DIFF FINAL DIFF MANUAL
[2017-01-09] MEDS ORDERED: CIPR500T2 PO (11:55)
--- NOTE | 2017-01-09 11:56 | HHI.DCPOC ---
Discharge Care Plan Goals to Promote Your Health * To prevent worsening of your condition and complications take all medications as prescribed * To maintain your health at the optimal level follow all discharge instructions Directions to Meet Your Goals Take your medications as prescribed Follow your dietary instruction Follow activity as directed Keep your appointments as scheduled Take your immunizations and boosters as scheduled If your symptoms worsen call your PCP, if no PCP go to Urgent Care Center or Emergency Room Smoking is Dangerous to Your Health. Avoid second hand smoke Call the 24-hour hour crisis hotline for domestic abuse at Kenia Aleman MD R3 Jan 09, 2017 11:56
[2017-01-09 12:28] VITALS: BP 113/69; PULSE 82; RESP 20; TEMP 95.8; O2SAT 98
[2017-01-09 13:33] LABS: VASOACTIVE INTESTINAL POLYPEPT <50 pg/mL (<75)
--- NOTE | 2017-01-09 14:04 | HHI.FPPN ---
Subjective Remarks No acute events overnight. Afebrile, vital signs stable. Patient states his diarrhea is decreasing in frequency. He states he had 34 episodes yesterday/ overnight. He feels he is ready to go home. No fevers/chills. No abdominal pain. (Kenia Aleman MD R3) Objective Vitals Vital Signs Date Time Temp Pulse Resp B/P Pulse Ox O2 Delivery O2 Flow Rate FiO2 01/09/17 12:28 95.8 82 20 113/69 98 01/09/17 08:06 95.7 68 20 107/74 99 01/09/17 04:00 96.7 83 20 101/70 98 01/09/17 00:00 95.9 73 20 108/70 99 01/08/17 20:00 95.5 89 20 122/75 100 01/08/17 15:46 96.8 84 20 111/68 100 I/O 01/08/17 01/08/17 01/08/17 01/09/17 01/09/17 01/09/17 07:00 15:00 23:00 07:00 15:00 23:00 Intake Total 200 ml 1440 ml 320 ml Output Total 1 ml Balance 200 ml 1440 ml 320 ml -1 ml Intake Oral 1440 ml 120 ml IV Total 200 ml 200 ml Output Urine Total 1 ml # Voids 6 2 # Bowel Movements 1 0 2 (Kenia Aleman MD R3) Result Diagram: 01/09/17 0815 01/09/17 0815 Objective Remarks Gen.: No acute distress Head: Normocephalic. Atraumatic. EENT: Pupils equal round and reactive to light. Nose without drainage. Airway intact. Throat without injection. Cardiovascular: Regular rate and rhythm. No murmurs, rubs or gallops. Respiratory: Lungs clear to auscultation bilaterally. No wheezes or rhonchi. Abdomen: Soft, nontender, nondistended. No peritoneal signs. Musculoskeletal: No gross deformities. No edema. Skin: No obvious rashes or erythema. Neuro: Sensory and motor grossly intact. Cranial nerves II through XII grossly intact. Psych: Appropriate mood and affect (Kenia Aleman MD R3) A/P Assessment and Plan 71-year-old male with past medical history significant for mild dysplastic syndrome presenting with: Discharge Planning To home with 2 weeks of Cipro today (Kenia Aleman MD R3) Attending Attestation Patient seen and examined Case reviewed and discussed Agree with plan of care as discussed with me and documented in the resident note. Diarrhea significantly improved No events of diarrhea overnight, down to <4 in last 24h Electrolytes stable. (Margy Keyes MD) Problem List: (1) Salmonella Status: Acute Plan: Patient positive for salmonella. Hemoccult negative. Blood cultures no growth 5 day. - Cipro 400 mg IV every 12 hours, per ID recommendations continue Cipro x 2 weeks - DC Flagyl - DC to home today, patient counseled that if his symptoms do not improve he needs to return to his PCP immediately. (2) Leukopenia Status: Acute Plan: Patient with known MDS. Afebrile 48 hours. WBC improved from 1.9-->7.0 (3) Acute kidney injury Status: Resolved Plan: Resolved with IVFs. (4) MDS (myelodysplastic syndrome) Status: Chronic Plan: WBC on admission 1.6, decreased from about 7.1 on 11 December. Patient tends to be leukopenic at about 3 or 4. Bands neutrophils 20%, which could be appropriate response to myelosuppression or infectious etiology Consulted hematology/oncology: Recommended continuing antibiotics per ID, monitor CBC, consider adding Neupogen if worsening neutropenia or he has recurrent fevers. She'll follow up as outpatient with his oncologist. (5) Hyperlipidemia Status: Chronic Plan: Continue home statin, fenofibrate (6) Glaucoma Status: Chronic Plan: Continue home eyedrops (7) FEN/PPX Status: Acute Plan: Fluids: Tolerating by mouth diet, HLIV Electrolytes: Normalized. Continue to replete prn. Nutrition: Diet regular adult basic DVT: Lovenox 30 mg SQ daily N/V: Zofran 4 mg IV every 6 hours as needed (Kenia Aleman MD R3) Problem Qualifiers (1) Leukopenia: Qualified Code: D72.819 - Leukopenia, unspecified type (2) Hyperlipidemia: Qualified Code: E78.2 - Mixed hyperlipidemia Kenia Aleman MD R3 Jan 09, 2017 14:04 Margy Keyes MD Jan 09, 2017 15:39
--- NOTE | 2017-01-09 14:06 | HHI.DS ---
Discharge Summary Admission Date Jan 04, 2017 at 16:55 Discharge Date: Jan 09, 2017 Admitting Diagnosis diarrhea, bandemia, JOSE J (1) Salmonella Diagnosis: Principal Plan: Patient positive for salmonella. Hemoccult negative. Blood cultures no growth 5 day. - Cipro 400 mg IV every 12 hours, per ID recommendations continue Cipro x 2 weeks - DC Flagyl - DC to home today, patient counseled that if his symptoms do not improve he needs to return to his PCP immediately. (2) Leukopenia Diagnosis: Principal Plan: Patient with known MDS. Afebrile 48 hours. WBC improved from 1.9-->7.0 (3) Acute kidney injury Diagnosis: Principal Plan: Resolved with IVFs. (4) MDS (myelodysplastic syndrome) Diagnosis: Secondary Plan: WBC on admission 1.6, decreased from about 7.1 on 11 December. Patient tends to be leukopenic at about 3 or 4. Bands neutrophils 20%, which could be appropriate response to myelosuppression or infectious etiology Consulted hematology/oncology: Recommended continuing antibiotics per ID, monitor CBC, consider adding Neupogen if worsening neutropenia or he has recurrent fevers. She'll follow up as outpatient with his oncologist. 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 Symptoms began on and were associated with mild abdominal cramping. Abdominal cramping resolved the evening on , but diarrhea persisted. He also notes intermittent fevers and chills during this timeframe. He does not go camping. He states he was having a bowel movement about every 2 hours, small amounts, loose to liquidy. No blood was noted in stool, however he did have several darker stools on Thursday and Thursday after having taken Pepto- Bismol and red Gatorade. He has had decreased oral intake, but no vomiting. He has no history of abdominal surgeries. His last chemotherapy regimen with azacitidine was on 20 December. He is next due for his ascending treatment on January [address] Weeks. Of note, he returned from a extended trip to [place] and [facility] on 06 December. He was mostly in the city at that time and did not travel into the country or into the mountains. CBC/BMP: 01/09/17 0815 01/09/17 0815 Significant Findings Laboratory Tests Test 01/07/17 01/08/17 01/09/17 08:21 08:20 08:15 White Blood Count 3.1 TH/MM3 (4.0-11.0) Red Blood Count 3.04 MIL/MM3 3.02 MIL/MM3 3.22 MIL/MM3 (4.50-5.90) (4.50-5.90) (4.50-5.90) Hemoglobin 10.1 GM/DL 10.1 GM/DL 10.8 GM/DL (13.0-17.0) (13.0-17.0) (13.0-17.0) Hematocrit 30.6 % 30.2 % 31.4 % (39.0-51.0) (39.0-51.0) (39.0-51.0) Mean Corpuscular Volume 100.5 FL 100.1 FL (80.0-100.0) (80.0-100.0) Red Cell Distribution Width 17.5 % (11.6-17.2) Platelet Count 485 TH/MM3 609 TH/MM3 781 TH/MM3 (150-450) (150-450) (150-450) Monocytes (%) (Auto) 11.9 % 13.7 % 12.5 % (0.0-8.0) (0.0-8.0) (0.0-8.0) Neutrophils # (Auto) 1.6 TH/MM3 (1.8-7.7) Band Neutrophils % 18 % (0-6) 21 % (0-6) 26 % (0-6) Monocytes % 18 % (0-8) 10 % (0-8) 12 % (0-8) Neutrophils # (Manual) 1.2 TH/MM3 (1.8-7.7) Myelocytes 1 % (0-0) 1 % (0-0) 1 % (0-0) Nucleated Red Blood Cells 1 /100 WBC 4 /100 WBC 1 /100 WBC (0-0) (0-0) (0-0) Toxic Granulation 2+ (NORMAL) 2+ (NORMAL) Platelet Estimate HIGH (NORMAL) HIGH (NORMAL) HIGH (NORMAL) Ovalocytes 1+ (NORMAL) 1+ (NORMAL) Sodium Level 146 MEQ/L (136-145) Chloride Level 119 MEQ/L 116 MEQ/L 112 MEQ/L (98-107) (98-107) (98-107) Carbon Dioxide Level 18.5 MEQ/L 16.6 MEQ/L 18.3 MEQ/L (21.0-32.0) (21.0-32.0) (21.0-32.0) Estimat Glomerular Filtration 57 ML/MIN (>89) 60 ML/MIN (>89) 56 ML/MIN (>89) Rate Random Glucose 113 MG/DL (74-106) Basophils % 5 % (0-2) Metamyelocytes 3 % (0-1) 4 % (0-1) Promyelocytes 1 % (0-0) Magnesium Level 1.4 MG/DL (1.5-2.5) Imaging Last Impressions Chest X-Ray 01/04/17 0000 Signed Impressions: Service Date/Time: Wednesday, January 04, 2017 15:04 - CONCLUSION: Postoperative change in the right chest. An acute abnormality is not clearly seen. Angel Yanez MD Abdomen/Pelvis CT 01/04/17 0000 Signed Impressions: Service Date/Time: Wednesday, January 04, 2017 15:13 - CONCLUSION: 1. Mild induration with mildly prominent lymph nodes in the left upper quadrant mesentery. This is nonspecific. The bowel in this region appears unremarkable. 2. Bilateral renal masses likely related to cyst. This could be further evaluated with an ultrasound examination at some point. 3. Scattered colonic diverticula in the sigmoid region without inflammatory change. 4. Postoperative change/scarring at the anterior right lung base. Angel Yanez MD PE at Discharge Gen.: No acute distress Head: Normocephalic. Atraumatic. EENT: Pupils equal round and reactive to light. Nose without drainage. Airway intact. Throat without injection. Cardiovascular: Regular rate and rhythm. No murmurs, rubs or gallops. Respiratory: Lungs clear to auscultation bilaterally. No wheezes or rhonchi. Abdomen: Soft, nontender, nondistended. No peritoneal signs. Musculoskeletal: No gross deformities. No edema. Skin: No obvious rashes or erythema. Neuro: Sensory and motor grossly intact. Cranial nerves II through XII grossly intact. Psych: Appropriate mood and affect Hospital Course He should admitted with diarrhea, nausea vomiting and found to have electrolyte disturbances of hypomagnesemia and hypokalemia in addition to Salmonella. Patient was initially started on Cipro/Flagyl, when Salmonella returned positive he was treated with IV ciprofloxacin. He will be discharged on by mouth Cipro 2 weeks. He will follow-up as an outpatient with oncology for his MDS. Pt Condition on Discharge: Good Discharge Disposition: Discharge Home Discharge Instructions DIET: Follow Instructions for: As Tolerated, No Restrictions Activities you can perform: Regular-No Restrictions Follow up Referrals: Oncology with [facility] PCP Follow-up - 1 Week New Medications: Ciprofloxacin (Ciprofloxacin) 500 Mg Tab 500 MG PO BID Infection #28 Ref 0 TAB Continued Medications: Albuterol 8.5 GM Inh (Proair Hfa 8.5 GM Inh) 90 Mcg/Act Aer 2 PUFF INH Q6H 108 mcg/actuation PRN SHORTNESS OF BREATH #1 Ref 0 INHALER Alprazolam (Alprazolam) 1 Mg Tab 1 MG PO HS Anxiety Ref [address] (Aspirin Adult Low Strength) 81 Mg Tabdr 81 MG PO DAILY TAB Fenofibrate Micronized (Fenofibrate Micronized) 134 Mg Cap 134 MG PO DAILY #30 Ref 0 CAP Latanoprost Opth Drops (Latanoprost Opth Drops) 0.005% Drops 1 DROP EACH EYE HS Refrigerate until opened. Glaucoma #2.5 Ref 0 ML Levothyroxine (Levothyroxine) 150 Mcg Tab 150 MCG PO DAILY Thyroid #30 Ref 0 TAB Metoprolol Tartrate (Metoprolol Tartrate) 25 Mg Tab 25 MG PO BID #60 Ref 0 TAB Omeprazole (Omeprazole) 40 Mg Cap 40 MG PO BID #30 Ref 0 CAP Rosuvastatin (Rosuvastatin) 20 Mg Tab 20 MG PO DAILY Cholesterol Management #30 Ref 0 TAB Umeclidinium [place] Inh (Incruse Ellipta Inh) 0.0625 Mg/Act Inh 1 SPRAY INH DAILY PRN SHORTNESS OF BREATH #1 Ref 0 INHALER ([Chemo Medication]) Kenia Aleman MD R3 Jan 09, 2017 14:06
[2017-01-09] MEDS ORDERED: CIPROFLOXACIN 500 MG TAB PO SCH (21:00)
== END 2017-01-09 13:18 | disposition home or self-care (01) | DRG 868 ==
LOC: NEPE 13:17 → NEDA 16:55 → N05B 18:38
PROVIDERS: ADMIT Family Medicine; ATTEND Family Medicine
DX: A02.9 Salmonella infection, unspecified (principal); N17.9 Acute kidney failure, unspecified; D70.9 Neutropenia, unspecified; J44.9 Chronic obstructive pulmonary disease, unspecified; R50.81 Fever presenting with conditions classified elsewhere; D46.9 Myelodysplastic syndrome, unspecified; E83.42 Hypomagnesemia; E78.2 Mixed hyperlipidemia; H40.9 Unspecified glaucoma; Z92.21 Personal history of antineoplastic chemotherapy; Z85.118 Personal history of other malignant neoplasm of bronchus and lung; E87.6 Hypokalemia; N18.9 Chronic kidney disease, unspecified; E83.110 Hereditary hemochromatosis; Z79.82 Long term (current) use of aspirin; Z87.891 Personal history of nicotine dependence; E86.0 Dehydration
CPT/HCPCS: 71010; 74176; 80048; 80053; 81001; 82941; 83605; 83690; 83735; 84100; 84586; 85007; 85014; 85018; 85027; 85610; 85730; 86316; 87040; 87329; 87493; 87506; 96360; 96361; 96365; 96367; J0744; J1650; J3475; J3480; J7030

== ENCOUNTER → 2017-06-01 | Outpatient (CLI) | payer MEDICARE, OTHER ==
[~2017-06-01] MED LIST changes: +ALBUAER3 INH; +ALPR1TAB3 PO; -ALPR2TAB3 PO; +ASPI81TA16 PO; -ASPI81TA82 PO; +CHEMO MEDICATION; +CIPR500T2 PO; -COMBAER INH; -IPRAAER IN; -LATA.005%O OU; +LATA0.002 EACH EYE; +LEVO150T7 PO; +METO25TA3 PO; -METO50TA; -OMEP20TA PO; +OMEP40CA2 PO; +ROSU1TAB8 PO; -ROSU20 PO; -SYNT125T PO; +UMEC1INH INH
--- NOTE | 2017-06-08 10:47 | RSPPFT ---
DATE OF PROCEDURE: 06/01/17 COMMENTS: Spirometry demonstrates an FEV1 of 2.3 at 81% of predicted, FVC of 3.7 at 101%, FEF 25-75 is 37%. Post-bronchodilator study demonstrated improvements in the FEV1, FEF 25-75. Lung volumes demonstrated a raised RV/TLC ratio indicating air trapping. Diffusion capacity is mildly reduced. Flow volume loops suggest an obstructive pattern. IMPRESSION: 1. Mild obstructive disease. 2. Significant response to use of bronchodilator indicating reversibility. 3. Mild reduction in diffusion capacity.
== END ==
LOC: PHRSP 09:56
DX: J44.9 Chronic obstructive pulmonary disease, unspecified (principal); R06.00 Dyspnea, unspecified
CPT/HCPCS: 94060; 94726; 94729

== ENCOUNTER 2018-04-12 17:46 | Inpatient (IN) ==
[2018-04-12] MEDS ORDERED: Acetaminophen 325 MG Tablet PO ONE (18:37)
[2018-04-12] MEDS ORDERED: Sod Chloride 0.9% Inj 1,000 ML IV.SIG SCH (18:45)
--- NOTE | 2018-04-12 19:04 | ED ---
HPI General Chief Complaint: Fever Stated Complaint: fever-chemo pt Time Seen by Provider: 04/12/18 18:35 Source: patient and family Mode of arrival: ambulatory Limitations: no limitations History of Present Illness HPI Narrative: Patient is a 73-year-old male that presents for the evaluation of fever. The patient states that the fever started today. The patient states that earlier today he was also experiencing chills. The patient has a history of myelodysplasia and is currently receiving treatment via Azacitidine injections 5 days a week each month. The patient states that over the last couple of months he has noticed that after his usual injections, he develops a fever. The patient reports that his oncologist recommended that the patient be seen in the ER today for further evaluation of the fever. Upon review of symptoms the patient reports fatigue. He denies chest pain or shortness of breath. He states that yesterday he experienced some nausea but denies vomiting. The patient denies diarrhea or constipation. Related Data Home Medications Medication Instructions Recorded Confirmed albuterol sulfate [ProAir HFA] 1 puff INHALATION Q6H PRN 04/12/18 04/12/18 alprazolam 0.5 mg PO DAILY 04/12/18 04/12/18 aspirin 81 mg PO DAILY 04/12/18 04/12/18 fenofibrate micronized 134 mg PO DAILY 04/12/18 04/12/18 latanoprost 1 drp OPHTHALMIC (EYE) QPM 04/12/18 04/12/18 levothyroxine [Synthroid] 150 mcg PO DAILY 04/12/18 04/12/18 magnesium 500 mg PO DAILY 04/12/18 04/12/18 metoprolol tartrate 25 mg PO BID 04/12/18 04/12/18 omeprazole 40 mg PO DAILY 04/12/18 04/12/18 Allergies Allergy/AdvReac Type Severity Reaction Status Date / Time No Known Allergies Allergy Unverified 04/12/18 18:43 Review of Systems ROS: all other systems reviewed are negative [facility] Medical History Medical History Anxiety (Acute) GERD (gastroesophageal reflux disease) (Acute) HBP (high blood pressure) (Acute) Hypothyroidism (Acute) Lung cancer (Acute) Surgical History Surgical History History of lung surgery (Acute) Social History Social History Substance History: No History of Abuse Second Hand Smoke Exposure: No Smoking Status: Former smoker Tobacco Type: Cigarettes How Often Do You Have a Drink Containing Alcohol: Never Recent Travel in [facility] within the Last 8 Weeks: No Recent Out of Country Travel within the Last 8 Weeks: No Immunization History Tetanus Immunization: >5 Years Hx Influenza Vaccine This Season: No Exam Narrative Exam Narrative: GENERAL: Well appearing SKIN: Focused skin assessment warm/dry. HEAD: Atraumatic. Normocephalic. EYES: Pupils equal and round. No scleral icterus. No injection or drainage. ENT: No nasal bleeding or discharge. Mucous membranes pink and moist. Tongue is midline. No uvula deviation. NECK: Trachea midline. No JVD. CARDIOVASCULAR: Regular rate and rhythm. No murmur appreciated. RESPIRATORY: No accessory muscle use. Clear to auscultation. Breath sounds equal bilaterally. GASTROINTESTINAL: Abdomen soft, non-tender, nondistended. Hepatic and splenic margins not palpable. MUSCULOSKELETAL: No obvious deformities. No clubbing. No cyanosis. No edema. Full range of motion of the upper and lower extremities bilaterally. 2+ pulses bilaterally. NEUROLOGICAL: Awake and alert. No obvious cranial nerve deficits. Motor grossly within normal limits. Normal speech. PSYCHIATRIC: Appropriate mood and affect; insight and judgment normal. Course Initial Documented Vital Signs Temperature 100.6 F H 04/12/18 18:21 Pulse Rate 90 04/12/18 18:21 Respiratory Rate 20 04/12/18 18:21 Blood Pressure 168/70 H 04/12/18 18:21 Pulse Oximetry 98 04/12/18 18:21 Last Documented Vital Signs Temperature 100.6 F H 04/12/18 18:21 Pulse Rate 96 H 04/12/18 18:38 Respiratory Rate 20 04/12/18 18:21 Blood Pressure 168/70 H 04/12/18 18:21 Pulse Oximetry 97 04/12/18 18:38 Medical Decision Making MDM Narrative Medical decision making narrative: for likely ERCP or MRCP.73-year-old male the presents to the ED for evaluation of fever of unknown source. Patient was properly examined and was found to have signs and symptoms consistent with fever. Patient does get some chemotherapy. Patient has had this chemotherapy for 3 years and has never had fever until the past 3 months. Labs and imaging were ordered. Labs and imaging did show what appears to be elevated LFTs. Worse than last week. I recommend ultrasound. I was able to review the CT scan that he had done at [facility] on [address] scan did not show or mention anything about the gallbladder of the liver. Ultrasound here showed what appears to be choledocholithiasis with what appears to be an 8 mm stone obstructing the distal duct per radiologist from the review he did with the CT scan done on March 28 that apparently was missed at that time. The ultrasound here did not show this however but did show significant dilatation of the gallbladder with no cholecystitis. Patient does have some right upper quadrant pain on reexamination at this time. Because of the patient 's symptoms and elevated LFTs recommendations for admission for further evaluation by GI patient agrees with this plan. Patient was started on Zosyn to cover for infection of the again this does not appear to be infectious at this time. Patient for the most part okay. Case discussed with my attending Dr. Lujan who agrees to admission. Dr Aleman agrees with admission. Medical Screen Exam Complete: Yes Emergency Medical Condition: Yes Differential Diagnosis Differential Diagnosis: Sepsis versus fever of unknown etiology versus medication reaction versus diverticulitis versus pneumonia versus URI versus gallbladder disease Medical Records Medical records reviewed: Yes I reviewed the patient's medical records. Lab Data Lab results reviewed: Yes I reviewed the patient's lab results. Lab results narrative: UA negative Result diagrams: 04/12/18 18:30 04/12/18 18:30 Lab Results 04/12/18 04/12/18 04/12/18 Range/Units 18:30 18:30 18:30 WBC 6.8 (4.0-11.0) th/mm3 RBC 2.71 L (4.50-5.90) mil/mm3 Hgb 9.7 L (13.0-17.0) gm/dL Hct 27.9 L (39.0-51.0) % MCV 102.8 H (80.0-100.0) fL MCH 35.6 H (27.0-34.0) pg MCHC 34.6 (32.0-36.0) % RDW 19.6 H (11.6-17.2) % Plt Count 562 H (150-450) th/mm3 MPV 8.2 (7.0-11.0) fL Neut % (Auto) 90.9 H (16.0-70.0) % Lymph % (Auto) 5.1 L (9.0-44.0) % Harvey % (Auto) 2.8 (0.0-8.0) % Eos % (Auto) 0.6 (0.0-4.0) % Baso % (Auto) 0.6 (0.0-2.0) % Neut # (Auto) 6.2 (1.8-7.7) th/mm3 Lymph # (Auto) 0.3 L (1.0-4.8) th/mm3 Harvey # (Auto) 0.2 (0.0-0.9) th/mm3 Eos # (Auto) 0.0 (0.0-0.4) th/mm3 Baso # (Auto) 0.0 (0.0-0.2) th/mm3 WBC Differential . Differential Comment Auto diff final Sodium 139 (136-145) meq/L Potassium 4.2 (3.5-5.1) meq/L Chloride 105 (98-107) meq/L Carbon Dioxide 25.4 (21.0-32.0) meq/L Anion Gap 9 (5-15) meq/L BUN 21 H (7-18) mg/dL Creatinine 1.17 (0.60-1.30) mg/dL Estimated GFR 61 L (>89) mL/min POC Glucose (68-110) mg/dl Random Glucose 104 (74-106) mg/dL Lactic Acid 1.4 (0.4-2.0) mmol/L Calcium 8.8 (8.5-10.1) mg/dL Total Bilirubin 1.7 H (0.2-1.0) mg/dL AST 232 H (15-37) U/L ALT 251 H (12-78) U/L Alkaline Phosphatase 459 H (45-117) U/L Total Protein 7.1 (6.4-8.2) g/dL Albumin 3.8 (3.4-5.0) g/dL Urine Color (Yellw/Straw) Urine Clarity (Clear) Urine pH (5.0-8.5) Ur Specific [place] (1.002-1.035) Urine Protein (Neg-Trace) mg/dL Urine Glucose (UA) (Negative) mg/dL Urine Ketones (Negative) mg/dL Urine Occult Blood (Negative) Urine Nitrate (Negative) Urine Bilirubin (Negative) Urine Urobilinogen (Less than 2) mg/dL Ur Leukocyte Esterase (Negative) Urine RBC (0-3) /hpf Urine WBC (0-5) /hpf Micro UA Comment Ur Microscopic Review Urine Culture Comments 04/12/18 04/12/18 Range/Units 19:00 20:00 WBC (4.0-11.0) th/mm3 RBC (4.50-5.90) mil/mm3 Hgb (13.0-17.0) gm/dL Hct (39.0-51.0) % MCV (80.0-100.0) fL MCH (27.0-34.0) pg MCHC (32.0-36.0) % RDW (11.6-17.2) % Plt Count (150-450) th/mm3 MPV (7.0-11.0) fL Neut % (Auto) (16.0-70.0) % Lymph % (Auto) (9.0-44.0) % Harvey % (Auto) (0.0-8.0) % Eos % (Auto) (0.0-4.0) % Baso % (Auto) (0.0-2.0) % Neut # (Auto) (1.8-7.7) th/mm3 Lymph # (Auto) (1.0-4.8) th/mm3 Harvey # (Auto) (0.0-0.9) th/mm3 Eos # (Auto) (0.0-0.4) th/mm3 Baso # (Auto) (0.0-0.2) th/mm3 WBC Differential Differential Comment Sodium (136-145) meq/L Potassium (3.5-5.1) meq/L Chloride (98-107) meq/L Carbon Dioxide (21.0-32.0) meq/L Anion Gap (5-15) meq/L BUN (7-18) mg/dL Creatinine (0.60-1.30) mg/dL Estimated GFR (>89) mL/min POC Glucose 115 H (68-110) mg/dl Random Glucose (74-106) mg/dL Lactic Acid (0.4-2.0) mmol/L Calcium (8.5-10.1) mg/dL Total Bilirubin (0.2-1.0) mg/dL AST (15-37) U/L ALT (12-78) U/L Alkaline Phosphatase (45-117) U/L Total Protein (6.4-8.2) g/dL Albumin (3.4-5.0) g/dL Urine Color Myla (Yellw/Straw) Urine Clarity Clear (Clear) Urine pH 7.0 (5.0-8.5) Ur Specific [place] 1.018 (1.002-1.035) Urine Protein Negative (Neg-Trace) mg/dL Urine Glucose (UA) Negative (Negative) mg/dL Urine Ketones Negative (Negative) mg/dL Urine Occult Blood Negative (Negative) Urine Nitrate Negative (Negative) Urine Bilirubin Negative (Negative) Urine Urobilinogen 4 or greater (Less than 2) mg/dL Ur Leukocyte Esterase Negative (Negative) Urine RBC Less than 1 (0-3) /hpf Urine WBC Less than 1 (0-5) /hpf Micro UA Comment Culture not ind Ur Microscopic Review Not Reportable Urine Culture Comments Culture not ind Imaging Data Attestation: I personally reviewed and interpreted this imaging study as follows : Radiologist's impression: Chest X-Ray 04/12/18 18:38 CONCLUSION: No acute cardiopulmonary disease. Right basilar scarring again noted. Gallbladder Ultrasound 04/12/18 20:10 CONCLUSION: 1. Distended gallbladder and the intrahepatic as well as extrahepatic biliary tree. Distal duct not well visualized by ultrasound; retrospective review of recent CT shows findings concerning for a distal duct stone, series 3 image 34. The stone is probably around 8 mm in size. No evidence of cholecystitis. 2. Nonspecific hepatomegaly. 3. Small, but benign-appearing right renal cyst. Discharge Plan Discharge Disposition Patient Disposition: 30 Still Patient Discharge Details Diagnosis: Choledocholithiasis Physicians Team ED Provider: Barrie Lujan ED Midlevel Provider: Chacorta Dominguez Primary Care Provider: Kavin Gonzalez Rxs /Orders / Referrals /Forms Prescriptions: No Action latanoprost 0.005 % Drops 1 drp OPHTHALMIC (EYE) QPM RF: 0 fenofibrate micronized 134 mg Capsule 134 mg PO DAILY RF: 0 levothyroxine [Synthroid] 150 mcg Tablet 150 mcg PO DAILY RF: 0 metoprolol tartrate 25 mg Tablet 25 mg PO BID RF: 0 omeprazole 40 mg Capsule,Delayed Release(Dr/Ec) 40 mg PO DAILY RF: 0 alprazolam 0.5 mg Tablet 0.5 mg PO DAILY RF: 0 aspirin 81 mg Tablet,Chewable 81 mg PO DAILY RF: 0 magnesium 250 mg Tablet 500 mg PO DAILY RF: 0 albuterol sulfate [ProAir HFA] 90 mcg/actuation Hfa Aerosol Inhaler 1 puff INHALATION Q6H PRN (Reason: Respiratory Distress) RF: 0 Status ED Status: With Doctor
--- NOTE | 2018-04-12 19:15 | XR ---
EXAM DATE: 04/12/2018 6:38 PM EDT AGE/SEX: 73 years / Male INDICATIONS: Fever. CLINICAL DATA: This is the patient's initial encounter. Patient reports that signs and symptoms have been present for 1 day and indicates a pain score of 0/10. MEDICAL/SURGICAL HISTORY: . Carcinoma, lung. Chronic obstructive pulmonary disease. . Lobecto my, middle right. COMPARISON: POI, CT CHEST W/O CONTRAST, 03/29/2018. . FINDINGS: There is scarring is again seen. No infiltrate, effusion or pneumothorax. Heart size stable, within n ormal limits. Azygos lobe again noted. CONCLUSION: No acute cardiopulmonary disease. Right basilar scarring again noted. Electronically signed by: Angel Dupont MD 04/12/2018 7:13 PM EDT
[2018-04-12 19:30] LABS: Baso % (Auto) 0.6 % (0.0-2.0); Eos % (Auto) 0.6 % (0.0-4.0); Hematocrit 27.9 % (39.0-51.0); Hemoglobin 9.7 gm/dL (13.0-17.0); Lymph # (Auto) 0.3 th/mm3 (1.0-4.8); Lymph % (Auto) 5.1 % (9.0-44.0); Mean Corpuscular HGB Conc 34.6 % (32.0-36.0); Mean Corpuscular Hemoglobin 35.6 pg (27.0-34.0); Mean Corpuscular Volume 102.8 fL (80.0-100.0); Mean Platelet Volume 8.2 fL (7.0-11.0); Mono # (Auto) 0.2 th/mm3 (0.0-0.9); Mono % (Auto) 2.8 % (0.0-8.0); Neut # (Auto) 6.2 th/mm3 (1.8-7.7); Neut % (Auto) 90.9 % (16.0-70.0); Platelet Count 562 th/mm3 (150-450); Red Blood Count 2.71 mil/mm3 (4.50-5.90); Red Cell Distribution Width 19.6 % (11.6-17.2); White Blood Count 6.8 th/mm3 (4.0-11.0)
[2018-04-12 19:53] LABS: Albumin 3.8 g/dL (3.4-5.0); Anion Gap 9 meq/L (5-15); Aspartate Aminotransferase 232 U/L (15-37); Blood Urea Nitrogen 21 mg/dL (7-18); Calcium 8.8 mg/dL (8.5-10.1); Carbon Dioxide 25.4 meq/L (21.0-32.0); Chloride 105 meq/L (98-107); Glomerular Filtration Rate 61 mL/min (>89); Glucose,Random 104 mg/dL (74-106); Potassium 4.2 meq/L (3.5-5.1); Sodium 139 meq/L (136-145)
[2018-04-12 19:54] LABS: Alanine Aminotransferase 251 U/L (12-78)
[2018-04-12 19:57] LABS: Alkaline Phosphatase 459 U/L (45-117); Total Protein 7.1 g/dL (6.4-8.2)
[2018-04-12 20:16] LABS: Bilirubin,Urine Negative (Negative); Clarity,Urine Clear (Clear); Color,Urine Amber (Yellw/Straw); Glucose,Urine (UA) Negative (Negative); Leukocyte Esterase,Urine Negative (Negative); Nitrite,Urine Negative (Negative); Specific Gravity,Urine 1.018 (1.002-1.035); Urobilinogen,Urine 4 or Greater mg/dL (Less than 2)
--- NOTE | 2018-04-12 21:12 | US ---
EXAM DATE: 04/12/2018 8:10 PM EDT AGE/SEX: 73 years / Male INDICATIONS: Right upper quadrant pain. CLINICAL DATA: This is the patient's initial encounter. Patient reports that signs and symptoms have been present for 1 week and indicates a pain score of 2/10. MEDICAL/SURGICAL HISTORY: Gastroesophageal reflux disease. Hypertension. Hypothyroidism. Anx iety. Lung cancer. . Lung surgery. COMPARISON: No prior exams available for comparison. MEASUREMENTS: Liver:__ 21.2 cm. Common Bile Duct:__ 13mm. FINDINGS: Liver: There is intrahepatic biliary distention. No focal lesion demonstrated. Portal Vein: Hepatopedal flow seen in portal vein. Common Duct: Distended. No perceptible stone but distal portions are not well seen. Gallbladder: Distended gallbladder with small sludge. No wall thickening, pericholecystic fluid or s onographic Woodruff's sign. Pancreas: Not well visualized. Right Kidney: 2.4 cm mid zone cyst. Other: None. CONCLUSION: 1. Distended gallbladder and the intrahepatic as well as extrahepatic biliary tree. Distal duct not well visualized by ultrasound; retrospective review of recent CT shows findings concerning for a dist al duct stone, series 3 image 34. The stone is probably around 8 mm in size. No evidence of cholecyst itis. 2. Nonspecific hepatomegaly. 3. Small, but benign-appearing right renal cyst. Electronically signed by: Angel Dupont MD 04/12/2018 9:11 PM EDT
[2018-04-12] MEDS ORDERED: Piperacil/Tazo 3.375 GM Premix 50 ML IV.SIG ONE (21:43)
[2018-04-12 22:12] LABS: Magnesium 1.7 mg/dL (1.5-2.5)
[2018-04-12] MEDS ORDERED: Bisacodyl 10 MG Supp RECTAL PRN (22:37)
--- NOTE | 2018-04-12 22:47 | P.HP ---
History of Present Illness Service: [facility] Primary Care Physician: Kavin Gonzalez MD History of Present Illness: 73-year-old male with a past medical history significant for history of lung cancer, myelodysplastic syndrome on chemotherapy, COPD, Diane's esophagus and hyperlipidemia presents to the emergency department for evaluation of a fever. The patient reports his fever at home was 102. T-max in the emergency department was 100.6. He called his oncologist, Dr. Weeks, who recommended further evaluation in the emergency department. The patient complained of a 1 day history of right upper quadrant abdominal pain. He denies any nausea or vomiting. No diarrhea. No chest pain or shortness of breath. No lateralizing signs/symptoms. Gallbladder ultrasound significant for distal duct stone. Inpatient Certification: I certify that the inpatient services were ordered in accordance with Medicare regulations governing the order. This includes certification that hospital inpatient services are reasonable and necessary and in the case of services not specified as inpatient-only under 42 CFR 419.22(n), that they are appropriately provided as inpatient services in accordance to with the 2-midnight benchmark under 43 CFR 412.3(e) Estimated Total Length of Stay (Days): 2 Plans for Post Hospital Care: Home Review of Systems All other systems reviewed negative except as stated in [facility] - History History Provided By: Patient - Medical History Medical History: Medical History (Last Updated 04/12/18 @ 22:42 by Kenia Aleman MD) Anxiety GERD (gastroesophageal reflux disease) HBP (high blood pressure) Hypothyroidism Lung cancer Myelodysplastic syndrome - Surgical History Surgical History: Surgical History (Last Reviewed 04/12/18 @ 22:42 by Kenia Aleman MD) History of lung surgery - Family History Family History: Family History (Last Updated 04/12/18 @ 22:43 by Kenia Aleman MD) Other Coronary artery disease Diabetes mellitus - Tobacco History Second Hand Smoke Exposure: No Tobacco Use In Past 30 Days: No Smoking Status: Former smoker Tobacco Type: Cigarettes - Alcohol History How Often Do You Have a Drink Containing Alcohol: Never - Substance Use History Substance History: No History of Abuse - Travel History Recent Travel in the [place] Within the Last 8 Weeks: No Recent Travel Out of the Country Within the Last 8 Weeks: No - Immunization History Tetanus Immunization: >5 Years Hx Influenza Vaccine This Season: No Medications and Allergies Active Medications: Active Medications Sodium Chloride (Ns Inj) 1,000 mls @ 0 mls/hr IV.SIG BOLUS AMANDA Last Admin: 04/12/18 18:54 Dose: 999 mls/hr Allergies Allergy/AdvReac Type Severity Reaction Status Date / Time No Known Allergies Allergy Unverified 04/12/18 18:43 Home Medications Medication Instructions Recorded Confirmed Type albuterol sulfate [ProAir HFA] 1 puff INHALATION Q6H PRN 04/12/18 04/12/18 History alprazolam 0.5 mg PO DAILY 04/12/18 04/12/18 History aspirin 81 mg PO DAILY 04/12/18 04/12/18 History fenofibrate micronized 134 mg PO DAILY 04/12/18 04/12/18 History latanoprost 1 drp OPHTHALMIC (EYE) QPM 04/12/18 04/12/18 History levothyroxine [Synthroid] 150 mcg PO DAILY 04/12/18 04/12/18 History magnesium 500 mg PO DAILY 04/12/18 04/12/18 History metoprolol tartrate 25 mg PO BID 04/12/18 04/12/18 History omeprazole 40 mg PO DAILY 04/12/18 04/12/18 History Exam Vital signs: Vital Signs 04/12/18 18:21 04/12/18 18:38 Temperature 100.6 F H Pulse Rate 90 96 H Respiratory Rate 20 Blood Pressure 168/70 H Pulse Oximetry 98 97 Intake & Output 04/12/18 04/12/18 04/13/18 06:59 18:59 06:59 Weight 105 kg Narrative: Gen.: No acute distress Head: Normocephalic. Atraumatic. EENT: Pupils equal round and reactive to light. Nose without drainage. Airway intact. Throat without injection. Cardiovascular: Regular rate and rhythm. No murmurs, rubs or gallops. Respiratory: Lungs clear to auscultation bilaterally. No wheezes or rhonchi. Abdomen: Soft, mildly tender to palpation in the right upper quadrant, nondistended. No peritoneal signs. Musculoskeletal: No gross deformities. No edema. Skin: No obvious rashes or erythema. Neuro: Sensory and motor grossly intact. Cranial nerves II through XII grossly intact. Results - Labs CBC & Chem 7: 04/12/18 18:30 04/12/18 18:30 Labs: Laboratory Results - last 24 hr 04/12/18 04/12/18 04/12/18 18:30 18:30 18:30 WBC 6.8 RBC 2.71 L Hgb 9.7 L Hct 27.9 L MCV 102.8 H MCH 35.6 H MCHC 34.6 RDW 19.6 H Plt Count 562 H MPV 8.2 Neut % (Auto) 90.9 H Lymph % (Auto) 5.1 L Parker % (Auto) 2.8 Eos % (Auto) 0.6 Baso % (Auto) 0.6 Neut # (Auto) 6.2 Lymph # (Auto) 0.3 L Parker # (Auto) 0.2 Eos # (Auto) 0.0 Baso # (Auto) 0.0 WBC Differential . Differential Comment Auto diff final Sodium 139 Potassium 4.2 Chloride 105 Carbon Dioxide 25.4 Anion Gap 9 BUN 21 H Creatinine 1.17 Estimated GFR 61 L POC Glucose Random Glucose 104 Lactic Acid Calcium 8.8 Magnesium 1.7 Total Bilirubin 1.7 H AST 232 H ALT 251 H Alkaline Phosphatase 459 H Total Protein 7.1 Albumin 3.8 Lipase 72 L Urine Color Urine Clarity Urine pH Ur Specific [place] Urine Protein Urine Glucose (UA) Urine Ketones Urine Occult Blood Urine Nitrate Urine Bilirubin Urine Urobilinogen Ur Leukocyte Esterase Urine RBC Urine WBC Micro UA Comment Ur Microscopic Review Urine Culture Comments 04/12/18 04/12/18 04/12/18 18:30 19:00 20:00 WBC RBC Hgb Hct MCV MCH MCHC RDW Plt Count MPV Neut % (Auto) Lymph % (Auto) Parker % (Auto) Eos % (Auto) Baso % (Auto) Neut # (Auto) Lymph # (Auto) Parker # (Auto) Eos # (Auto) Baso # (Auto) WBC Differential Differential Comment Sodium Potassium Chloride Carbon Dioxide Anion Gap BUN Creatinine Estimated GFR POC Glucose 115 H Random Glucose Lactic Acid 1.4 Calcium Magnesium Total Bilirubin AST ALT Alkaline Phosphatase Total Protein Albumin Lipase Urine Color Myla Urine Clarity Clear Urine pH 7.0 Ur Specific [place] 1.018 Urine Protein Negative Urine Glucose (UA) Negative Urine Ketones Negative Urine Occult Blood Negative Urine Nitrate Negative Urine Bilirubin Negative Urine Urobilinogen 4 or greater Ur Leukocyte Esterase Negative Urine RBC Less than 1 Urine WBC Less than 1 Micro UA Comment Culture not ind Ur Microscopic Review Not Reportable Urine Culture Comments Culture not ind - Imaging Impressions Chest X-Ray 04/12/18 18:38 CONCLUSION: No acute cardiopulmonary disease. Right basilar scarring again noted. Gallbladder Ultrasound 04/12/18 20:10 CONCLUSION: 1. Distended gallbladder and the intrahepatic as well as extrahepatic biliary tree. Distal duct not well visualized by ultrasound; retrospective review of recent CT shows findings concerning for a distal duct stone, series 3 image 34. The stone is probably around 8 mm in size. No evidence of cholecystitis. 2. Nonspecific hepatomegaly. 3. Small, but benign-appearing right renal cyst. Caprini VTE Risk Assessment Caprini VTE Risk Assessment: Moderate/High Risk (score >= 2) Caprini Risk Assessment Model: Point Value = 1 Point Value = 2 Point Value = 3 Point Value = 5 Age 41-60 Minor surgery BMI > 25 kg/m2 Swollen legs Varicose veins or History of unexplained or recurrent spontaneous Oral contraceptives or hormone replacement Sepsis (< 1 month) Serious lung disease, including pneumonia (< 1 month) Abnormal pulmonary function Acute myocardial infarction Congestive heart failure (< 1 month) History of inflammatory bowel disease Medical patient at bed rest Age 61-74 Arthroscopic surgery Major open surgery (> 45 min) Laparoscopic surgery (> 45 min) Malignancy Confined to bed (> 72 hours) Immobilizing plaster cast Central venous access Age >= 75 History of VTE Family history of VTE Factor V Leiden Prothrombin [id number] Lupus anticoagulant Anticardiolipin antibodies Elevated serum homocysteine Heparin-induced thrombocytopenia Other congenital or acquired thrombophilia Stroke (< 1 month) Elective arthroplasty Hip, pelvis, or leg fracture Acute spinal cord injury (< 1 month) Prophylaxis Regimen: Total Risk Factor Score Risk Level Prophylaxis Regimen 0-1 Low Early ambulation 2 Moderate Order ONE of the following: *Sequential Compression Device (SCD) *Heparin 5000 units SQ BID 3-4 Higher Order ONE of the following medications: *Heparin 5000 units SQ TID *Enoxaparin/Lovenox 40 mg SQ daily (WT < 150 kg, CrCl > 30 mL/min) *Enoxaparin/Lovenox 30 mg SQ daily (WT < 150 kg, CrCl > 10-29 mL/min) *Enoxaparin/Lovenox 30 mg SQ BID (WT < 150 kg, CrCl > 30 mL/min) AND/OR *Sequential Compression Device (SCD) 5 or more Highest Order ONE of the following medications: *Heparin 5000 units SQ TID (Preferred with Epidurals) *Enoxaparin/Lovenox 40 mg SQ daily (WT < 150 kg, CrCl > 30 mL/min) *Enoxaparin/Lovenox 30 mg SQ daily (WT < 150 kg, CrCl > 10-29 mL/min) *Enoxaparin/Lovenox 30 mg SQ BID (WT < 150 kg, CrCl > 30 mL/min) AND *Sequential Compression Device (SCD) Assessment and Plan - Plan Assessment/plan: 1. Choledocholithiasis/transaminitis/hyperbilirubinemia Gallbladder ultrasound significant for distended gallbladder with intrahepatic and extrahepatic biliary tree dilation. CT of the abdomen/pelvis concerning for distal duct stone that is 8 mm in size. No evidence of cholecystitis. Gastroenterology consulted, appreciate assistance Argelia 2. Fever May be secondary to above Antibiotics as above Cultures pending as patient currently on chemotherapy regimen for MDS UA negative 3. MDS Continue outpatient follow-up with oncology 4. COPD/anxiety/Diane's esophagus/hypothyroidism Continue home medications FEN N.p.o. Electrolytes: Monitor and replete as needed NS at 100 cc/hour Holding pharmacologic anticoagulation for possible procedural intervention
[2018-04-12] MEDS: Sod Chloride 0.9% Inj 1,000 ML IV.CONT SCH (22:50)
[2018-04-13] MEDS: Piperacil/Tazo 3.375 GM Premix 50 ML IV.SIG SCH ×4 (04:02→22:37)
[2018-04-13] MEDS: Levothyroxine 150 MCG Tablet PO SCH (05:51)
[2018-04-13 06:34] LABS: Baso % (Auto) 0.4 % (0.0-2.0); Eos % (Auto) 0.3 % (0.0-4.0); Hematocrit 25.3 % (39.0-51.0); Hemoglobin 8.8 gm/dL (13.0-17.0); Lymph # (Auto) 0.6 th/mm3 (1.0-4.8); Lymph % (Auto) 9.3 % (9.0-44.0); Mean Corpuscular Hemoglobin 35.5 pg (27.0-34.0); Mean Corpuscular Volume 101.3 fL (80.0-100.0); Mean Platelet Volume 7.9 fL (7.0-11.0); Mono # (Auto) 0.2 th/mm3 (0.0-0.9); Mono % (Auto) 3.5 % (0.0-8.0); Neut % (Auto) 86.5 % (16.0-70.0); Platelet Count 462 th/mm3 (150-450); Red Blood Count 2.49 mil/mm3 (4.50-5.90); Red Cell Distribution Width 19.6 % (11.6-17.2)
[2018-04-13 07:03] LABS: Alanine Aminotransferase 246 U/L (12-78); Albumin 3.4 g/dL (3.4-5.0); Anion Gap 10 meq/L (5-15); Aspartate Aminotransferase 166 U/L (15-37); Blood Urea Nitrogen 16 mg/dL (7-18); Calcium 7.9 mg/dL (8.5-10.1); Carbon Dioxide 24.9 meq/L (21.0-32.0); Chloride 107 meq/L (98-107); Glomerular Filtration Rate 58 mL/min (>89); Glucose,Random 105 mg/dL (74-106); Potassium 3.8 meq/L (3.5-5.1); Sodium 142 meq/L (136-145)
[2018-04-13 07:07] LABS: Alkaline Phosphatase 419 U/L (45-117); Total Protein 6.4 g/dL (6.4-8.2)
--- NOTE | 2018-04-13 08:11 | P.CON ---
History of Present Illness Service: Hematology/oncology. Consult date: 04/13/18 Primary Care Provider: Kavin Gonzalez MD Family Provider: Kavin Gonzalez MD Chief Complaint: Fevers and abdominal pain. History of Present Illness: Mr. Barba is a 73-year-old man who is well-known to me from my outpatient practice , I treat him for his underlying malignant hematologic diagnosis of myelodysplastic syndrome (refractory anemia with ringed sideroblasts; IPSS-R score: 2). For the past 2-1/2 years or so he has been on treatment with azacitidine (Vidaza) which he receives on days 1-5 of a 28-day cycle subcutaneously. 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 The patient had been noted to have elevated LFTs over the past 2 months, he underwent CT abdomen and pelvis in mid March 2018 in the outpatient setting which revealed no abnormalities and in particular revealed no evidence of biliary dilatation or evidence of gallstones. It was suspected the patient had hereditary hemochromatosis with resultant hepatic dysfunction secondary to iron overload because his ferritin levels were noted to be over 2500 at that time. The patient had been having symptoms of fevers which she would describe as temperatures of up to 101 F intermittently as well. On retrospective review he tells me the fevers would be accompanied by abdominal pain and typically the symptoms occurred after heavy meal. Yesterday evening he had a fever of 101.5 F at home, this was accompanied by abdominal pain and he came into the emergency department on my recommendation. He underwent an ultrasound of the abdomen after liver function testing indicated elevated AST, ALT, alkaline phosphatase and total bilirubin levels. The ultrasound abdomen revealed findings of distended gallbladder and the intrahepatic as well as extrahepatic biliary tree. Distal duct was not well visualized by ultrasound; retrospective review of recent CT scan shows findings concerning for distal duct stone, the stone is probably around 8 mm in size. No evidence of cholecystitis. Nonspecific hepatosplenomegaly was noted. The patient has been admitted to the facility, he has been initiated on broad- spectrum antibiotic coverage with Zosyn for possible ascending cholangitis and a GI evaluation is pending presumably for ERCP. From a hematologic standpoint he does have a decline in his baseline hemoglobin hematocrit likely related to acute issues. Review of Systems Constitutional: Reports chills, Reports excessive sweating, Reports fatigue, Reports fever(s), Reports lack of energy, Denies anorexia, Denies headache(s), Denies increased appetite, Denies malaise, Denies night sweats, Denies weakness , Denies weight gain, Denies weight loss Eyes: Denies blind spots, Denies change in vision Ears, Nose, Mouth, and Throat: Denies abnormal hearing, Denies change in voice, Denies difficulty swallowing, Denies dizziness, Denies dry mouth, Denies hoarseness, Denies throat swelling Cardiovascular: Reports excessive sweating, Reports shortness of breath, Denies chest pain, Denies shortness of breath causing sudden awakening Respiratory: Denies change in phlegm color, Denies cough, Denies snoring Gastrointestinal: Reports abdominal pain, Denies black, tarry stools, Denies bright, red blood in stools, Denies change in bowel habits, Denies constipation , Denies cramping, Denies difficulty swallowing, Denies loose stools, Denies vomiting Genitourinary: Denies blood in urine Musculoskeletal: Denies abnormal walking, Denies back pain, Denies deformity, Denies joint pain, Denies stiffness Skin/Breast: Denies non-healing lesions, Denies skin ulcer, Denies sores, Denies yellowing of the skin Neurologic: Reports abnormal hearing (Chronic.) Psychiatric: Denies abnormal sleep pattern, Denies anxiety, Denies confusion Endocrine: Denies cold intolerance Hematologic/Lymphatic: Denies easy bleeding Allergic/Immunologic: Denies GI upset with certain foods PMFSH - History History Provided By: Patient, Family Member - Medical History Medical History: Medical History (Last Updated 04/13/18 @ 08:06 by Davis Weeks MD) Anxiety Barretts esophagus COPD (chronic obstructive pulmonary disease) Chronic kidney disease GERD (gastroesophageal reflux disease) Glaucoma HBP (high blood pressure) Hereditary hemochromatosis Hyperlipidemia Hypothyroidism Lung cancer Myelodysplastic syndrome Obesity Pilonidal cyst with abscess Salmonella enteritis - Surgical History Surgical History: Surgical History (Last Updated 04/13/18 @ 08:06 by Davis Weeks MD) History of bone marrow biopsy History of esophagogastroduodenoscopy (EGD) History of lung biopsy History of lung surgery - Family History Family History: Family History (Last Reviewed 04/13/18 @ 08:06 by Davis Weeks MD) Other Coronary artery disease Diabetes mellitus - Social History I have reviewed the patient's Social History: Yes - Tobacco History Second Hand Smoke Exposure: Yes Tobacco Use In Past 30 Days: (Quits 5 years ago.) Smoking Status: Former smoker Tobacco Type: Cigarettes - Alcohol History How Often Do You Have a Drink Containing Alcohol: Monthly or less - Substance Use History Substance History: No History of Abuse - Travel History Recent Travel in the [place] Within the Last 8 Weeks: No Recent Travel Out of the Country Within the Last 8 Weeks: No - Immunization History Tetanus Immunization: >5 Years Hx Influenza Vaccine This Season: No Medications and Allergies Active Medications: Active Medications Al Hydroxide/Mg Hydroxide (Milk Of Magnesia Liq) 30 ml PO Q12H PRN PRN Reason: Mild Constipation Alprazolam (Xanax) 0.5 mg PO DAILY AMANDA Bisacodyl (Dulcolax Supp) 10 mg RECTAL DAILY PRN PRN Reason: SEVERE CONSITIPATION Sodium Chloride (Ns Inj) 1,000 mls @ 0 mls/hr IV.SIG BOLUS [facility] Last Infusion: 04/12/18 19:55 Dose: Infused Sodium Chloride (Ns Inj) 1,000 mls @ 100 mls/hr IV.CONT .Q10H [facility] Last Infusion: 04/12/18 23:35 Dose: 100 mls/hr Piperacillin/Tazobactam/Dextrose (Zosyn 3.375 Gm Premix) 50 mls @ 100 mls/hr IV.SIG Q6H [facility] Last Infusion: 04/13/18 05:53 Dose: Infused Lactulose (Lactulose Liq) 30 ml PO DAILY PRN PRN Reason: SEVERE CONSITIPATION Levothyroxine Sodium (Synthroid) 150 mcg PO DAILY@0600 [facility] Last Admin: 04/13/18 05:51 Dose: 150 mcg Metoprolol Tartrate (Lopressor) 25 mg PO BID [facility] Ondansetron HCl (Zofran Inj) 4 mg IV.PUSH Q6H PRN PRN Reason: NAUSEA OR VOMITING Pantoprazole Sodium (Protonix) 40 mg PO DAILY [facility] Senna/Docusate Sodium (Yolanda-Colace) 1 tab PO BID [facility] Sennosides (Senokot) 17.2 mg PO Q12H PRN PRN Reason: Moderate Constipation Allergies Allergy/AdvReac Type Severity Reaction Status Date / Time No Known Allergies Allergy Unverified 04/12/18 18:43 Home Medications Medication Instructions Recorded Confirmed Type albuterol sulfate [ProAir HFA] 1 puff INHALATION Q6H PRN 04/12/18 04/12/18 History alprazolam 0.5 mg PO DAILY 04/12/18 04/12/18 History aspirin 81 mg PO DAILY 04/12/18 04/12/18 History fenofibrate micronized 134 mg PO DAILY 04/12/18 04/12/18 History latanoprost 1 drp OPHTHALMIC (EYE) QPM 04/12/18 04/12/18 History levothyroxine [Synthroid] 150 mcg PO DAILY 04/12/18 04/12/18 History magnesium 500 mg PO DAILY 04/12/18 04/12/18 History metoprolol tartrate 25 mg PO BID 04/12/18 04/12/18 History omeprazole 40 mg PO DAILY 04/12/18 04/12/18 History Physical Exam Vital signs: Vital Signs 04/12/18 18:21 04/12/18 18:38 04/12/18 22:37 Temperature 100.6 F H Pulse Rate 90 96 H 77 Respiratory Rate 20 18 Blood Pressure 168/70 H 149/64 H Pulse Oximetry 98 97 97 04/13/18 00:00 04/13/18 04:00 Temperature 100.8 F H 98.6 F Pulse Rate 90 80 Respiratory Rate 17 18 Blood Pressure 125/60 127/60 Pulse Oximetry 97 98 Intake & Output 04/12/18 04/13/18 04/13/18 18:59 06:59 18:59 Intake Total 1100 / 1100 Balance 1100 / 1100 Weight 105 kg Intake: IV 1100 / 1100 Zosyn 3.375 GM Premix 50 ML @ 100 / 100 100 mls/hr IV.SIG Q6H [facility]AN[facility] Rx#: [id number] NS Inj 1,000 ML @ Wide Open IV. 1000 / 1000 SIG BOLUS AMANDA Rx#:[id number] Other: # Voids 3 Date of Last Bowel Movement 04/12/18 - Constitutional no acute distress - Routine HEENT Exam Head: Present: normocephalic Eye: Present: EOMI, PERRL ENT: Present: mucous membranes moist - Routine Neck Exam Present: supple, full ROM, normal carotid upstroke. Absent: JVD, lymphadenopathy - Routine Respiratory Exam Present: CTA bilaterally. Absent: accessory muscle use, rhonchi, stridor, wheezes, crackles, distant breath sounds - Routine Cardiovascular Exam Present: RRR, S1, S2. Absent: murmur, gallop, rubs, S3, S4 - Routine Abdominal Exam Present: soft, tenderness (In the right upper quadrant.). Absent: firm, mass - Routine Extremities Exam Present: cyanosis. Absent: clubbing, edema - Routine Skin Exam Present: intact. Absent: erythema, dry, pallor - Routine Neurological Exam Present: alert, oriented X3, CN II-XII intact. Absent: sensory deficit, motor deficit - Detailed Neurological Exam: Coma Scale Eye Opening: Spontaneous - Routine Psychiatric Exam Present: normal affect Assessment and Plan - Assessment (1) Myelodysplastic syndrome Code(s): D46.9 - Myelodysplastic syndrome, unspecified Status: Acute Plan: There is a chronic issue for him, he is on active treatment in the outpatient setting. I do anticipate his cytopenias to worsen due to his acute illness related to choledocholithiasis. For management of worsening cytopenias specifically anemia I would recommend supportive red cell transfusions. - Plan Mr. 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 His lung carcinoma is in remission as evidenced by recent outpatient CT imaging of the thorax. From a hematologic standpoint he has an active diagnosis of myelodysplastic syndrome, he is on azacitidine (Vidaza) for management of cytopenias, with this treatment he is essentially transfusion dependent and has had stable hemoglobin and hematocrit levels without evidence of progression to acute myeloid leukemia. For the past several weeks he has had unexplained elevation in his LFTs as well as intermittent fevers associated with abdominal pain. He did undergo an outpatient CT scan which was initially reported as negative, retrospective review performed by a second radiologist last night indicates likely presence of an 8 mm stone in the common bile duct at that time. The patient presents the hospital with fevers and abdominal pain associated with abnormal LFTs including AST, ALT, alkaline phosphatase and total bilirubin levels. He has been assessed to have choledocholithiasis with possible early ascending cholangitis. He has been initiated on broad-spectrum antibiotic coverage with Zosyn and is awaiting GI evaluation; presumably for an ERCP. Recommendations: 1. Choledocholithiasis: Await GI evaluation for ERCP. Continue broad-spectrum antibiotic coverage for possible early ascending cholangitis. 2. MDS: Labs reviewed, worsening anemia likely related to infection and choledocholithiasis, I would advise supportive transfusions as needed to maintain hemoglobin levels over 8 g/dL. Continue ongoing care. CT results, ultrasound results and labs discussed with the patient and his family.
[2018-04-13] MEDS ORDERED: ALPRAZolam 0.5 MG Tablet PO SCH (09:00)
[2018-04-13] MEDS: Metoprolol Tartrate 25 MG Tablet PO SCH ×2 (09:22→20:43)
[2018-04-13] MEDS: Senna/Docusate Sodium 8.6/50 MG Tablet PO SCH ×2 (09:25→20:43)
--- NOTE | 2018-04-13 10:19 | P.CONGI ---
History of Present Illness Consult date: 04/13/18 Consult reason: Choledocholithiasis Chief complaint: Acute Choledocholithiasis History of Present Illness: This is a well-nourished 73-year-old male who presented to the emergency room on 04/12/2018 with fever as high as 102 at home over the past 24 hours as well as abdominal pain predominantly in the right upper quadrant and mid abdomen. Patient states onset of symptoms was approximately 2 months ago but symptoms worsened over the past 24 hours. Patient is currently being treated for myelodysplastic syndrome and has been on chemotherapy. Current comorbidities from a GI perspective include Diane's esophagus and GERD in which patient takes Protonix daily. Patient denies any family history of colon cancer. Patient does note symptoms of nausea often known for the past 2 months and has vomited only one time and has had diarrhea x1. Patient denies any history of constipation. He does note generalized weakness and fatigue but felt like it was related to his current chemotherapy. Labs shows hemoglobin initially 9.7 now 8.8, bilirubin increased to 2.8, initial AST 232 on admission now 166, admission ALT 251 now 246, alkaline phosphatase 419. Patient had gallbladder ultrasound which did show distended gallbladder and biliary tree, hepatomegaly and no evidence of cholecystitis. According to the record outpatient CT scan which was initially reported negative was reread and 8 mm stone was noted in the common bile duct. Gastroenterology was consulted to assist with patient's plan of care and choledocholithiasis. <Shiloh Concepcion - Last Filed: 04/13/18 10:21> Review of Systems All other systems reviewed negative except as stated in HPI <Shiloh Concepcion - Last Filed: 04/13/18 10:21> PMFSH - History History Provided By: Patient, Family Member - Medical History Medical History: Medical History (Last Updated 04/13/18 @ 08:06 by Davis Weeks MD) Anxiety Barretts esophagus COPD (chronic obstructive pulmonary disease) Chronic kidney disease GERD (gastroesophageal reflux disease) Glaucoma HBP (high blood pressure) Hereditary hemochromatosis Hyperlipidemia Hypothyroidism Lung cancer Myelodysplastic syndrome Obesity Pilonidal cyst with abscess Salmonella enteritis - Surgical History Surgical History: Surgical History (Last Updated 04/13/18 @ 08:06 by Davis Weeks MD) History of bone marrow biopsy History of esophagogastroduodenoscopy (EGD) History of lung biopsy History of lung surgery - Family History Family History: Family History (Last Reviewed 04/13/18 @ 08:06 by Davis Weeks MD) Other Coronary artery disease Diabetes mellitus - Tobacco History Second Hand Smoke Exposure: Yes Tobacco Use In Past 30 Days: (Quits 5 years ago.) Smoking Status: Former smoker Tobacco Type: Cigarettes - Alcohol History How Often Do You Have a Drink Containing Alcohol: Monthly or less - Substance Use History Substance History: No History of Abuse - Travel History Recent Travel in the [place] Within the Last 8 Weeks: No Recent Travel Out of the Country Within the Last 8 Weeks: No - Immunization History Tetanus Immunization: >5 Years Hx Influenza Vaccine This Season: No <Shiloh Concepcion - Last Filed: 04/13/18 10:21> - Medical History Medical History: Medical History (Last Updated 04/13/18 @ 08:06 by Davis Weeks MD) Anxiety Barretts esophagus COPD (chronic obstructive pulmonary disease) Chronic kidney disease GERD (gastroesophageal reflux disease) Glaucoma HBP (high blood pressure) Hereditary hemochromatosis Hyperlipidemia Hypothyroidism Lung cancer Myelodysplastic syndrome Obesity Pilonidal cyst with abscess Salmonella enteritis - Surgical History Surgical History: Surgical History (Last Updated 04/13/18 @ 08:06 by Davis Weeks MD) History of bone marrow biopsy History of esophagogastroduodenoscopy (EGD) History of lung biopsy History of lung surgery - Family History Family History: Family History (Last Reviewed 04/13/18 @ 08:06 by Davis Weeks MD) Other Coronary artery disease Diabetes mellitus <Jose Gupta - Last Filed: 04/13/18 15:50> Medications and Allergies Active Medications: Active Medications Al Hydroxide/Mg Hydroxide (Milk Of Magnrory Liq) 30 ml PO Q12H PRN PRN Reason: Mild Constipation Alprazolam (Xanax) 0.5 mg PO DAILY [facility] Last Admin: 04/13/18 09:22 Dose: 0.5 mg Bisacodyl (Dulcolax Supp) 10 mg RECTAL DAILY PRN PRN Reason: SEVERE CONSITIPATION Sodium Chloride (Ns Inj) 1,000 mls @ 0 mls/hr IV.SIG BOLUS [facility]ANDA Last Infusion: 04/12/18 19:55 Dose: Infused Sodium Chloride (Ns Inj) 1,000 mls @ 100 mls/hr IV.CONT .Q10H [facility] Last Infusion: 04/12/18 23:35 Dose: 100 mls/hr Piperacillin/Tazobactam/Dextrose (Zosyn 3.375 Gm Premix) 50 mls @ 100 mls/hr IV.SIG Q6H [facility] Last Admin: 04/13/18 09:25 Dose: 100 mls/hr Lactulose (Lactulose Liq) 30 ml PO DAILY PRN PRN Reason: SEVERE CONSITIPATION Levothyroxine Sodium (Synthroid) 150 mcg PO DAILY@0600 [facility] Last Admin: 04/13/18 05:51 Dose: 150 mcg Metoprolol Tartrate (Lopressor) 25 mg PO BID [facility] Last Admin: 04/13/18 09:22 Dose: 25 mg Ondansetron HCl (Zofran Inj) 4 mg IV.PUSH Q6H PRN PRN Reason: NAUSEA OR VOMITING Pantoprazole Sodium (Protonix) 40 mg PO DAILY [facility] Last Admin: 04/13/18 09:22 Dose: 40 mg Senna/Docusate Sodium (Yolanda-Colace) 1 tab PO BID [facility] Last Admin: 04/13/18 09:25 Dose: Not Given Sennosides (Senokot) 17.2 mg PO Q12H PRN PRN Reason: Moderate Constipation <Shiloh Concepcion - Last Filed: 04/13/18 10:21> Active Medications: Active Medications Al Hydroxide/Mg Hydroxide (Milk Of Magnesia Liq) 30 ml PO Q12H PRN PRN Reason: Mild Constipation Alprazolam (Xanax) 0.5 mg PO DAILY [facility] Last Admin: 04/13/18 09:22 Dose: 0.5 mg Bisacodyl (Dulcolax Supp) 10 mg RECTAL DAILY PRN PRN Reason: SEVERE CONSITIPATION Sodium Chloride (Ns Inj) 1,000 mls @ 0 mls/hr IV.SIG BOLUS [facility] Last Infusion: 04/12/18 19:55 Dose: Infused Sodium Chloride (Ns Inj) 1,000 mls @ 100 mls/hr IV.CONT .Q10H [facility] Last Admin: 04/13/18 13:26 Dose: 100 mls/hr Piperacillin/Tazobactam/Dextrose (Zosyn 3.375 Gm Premix) 50 mls @ 100 mls/hr IV.SIG Q6H [facility] Last Infusion: 04/13/18 09:55 Dose: Infused Indomethacin (Indocin Supp) 100 mg RECTAL ONCE ONE Stop: 04/13/18 16:01 Lactulose (Lactulose Liq) 30 ml PO DAILY PRN PRN Reason: SEVERE CONSITIPATION Levothyroxine Sodium (Synthroid) 150 mcg PO DAILY@0600 [facility] Last Admin: 04/13/18 05:51 Dose: 150 mcg Metoprolol Tartrate (Lopressor) 25 mg PO BID [facility] Last Admin: 04/13/18 09:22 Dose: 25 mg Morphine Sulfate (Morphine Inj) 2 mg IV.PUSH Q4H PRN PRN Reason: ABDOMINAL PAIN Ondansetron HCl (Zofran Inj) 4 mg IV.PUSH Q6H PRN PRN Reason: NAUSEA OR VOMITING Pantoprazole Sodium (Protonix) 40 mg PO DAILY [facility] Last Admin: 04/13/18 09:22 Dose: 40 mg Senna/Docusate Sodium (Yolanda-Colace) 1 tab PO BID [facility] Last Admin: 04/13/18 09:25 Dose: Not Given Sennosides (Senokot) 17.2 mg PO Q12H PRN PRN Reason: Moderate Constipation <Jose Gupta E - Last Filed: 04/13/18 15:50> Allergies Allergy/AdvReac Type Severity Reaction Status Date / Time No Known Allergies Allergy Unverified 04/12/18 18:43 Home Medications Medication Instructions Recorded Confirmed Type albuterol sulfate [ProAir HFA] 1 puff INHALATION Q6H PRN 04/12/18 04/12/18 History alprazolam 0.5 mg PO DAILY 04/12/18 04/12/18 History aspirin 81 mg PO DAILY 04/12/18 04/12/18 History fenofibrate micronized 134 mg PO DAILY 04/12/18 04/12/18 History latanoprost 1 drp OPHTHALMIC (EYE) QPM 04/12/18 04/12/18 History levothyroxine [Synthroid] 150 mcg PO DAILY 04/12/18 04/12/18 History magnesium 500 mg PO DAILY 04/12/18 04/12/18 History omeprazole 40 mg PO DAILY 04/12/18 04/12/18 History metoprolol tartrate 25 mg PO BID 04/13/18 04/13/18 History Exam Vital signs: Vital Signs 04/12/18 18:21 04/12/18 18:38 04/12/18 22:37 Temperature 100.6 F H Pulse Rate 90 96 H 77 Respiratory Rate 20 18 Blood Pressure 168/70 H 149/64 H Pulse Oximetry 98 97 97 04/13/18 00:00 04/13/18 04:00 04/13/18 08:00 Temperature 100.8 F H 98.6 F 98.3 F Pulse Rate 90 80 70 Respiratory Rate 17 18 18 Blood Pressure 125/60 127/60 114/57 L Pulse Oximetry 97 98 97 Intake & Output 04/12/18 04/13/18 04/13/18 18:59 06:59 18:59 Intake Total 1100 / 1100 Balance 1100 / 1100 Weight 105 kg Intake: IV 1100 / 1100 Zosyn 3.375 GM Premix 50 ML @ 100 / 100 100 mls/hr IV.SIG Q6H [facility] Rx#: [id number] NS Inj 1,000 ML @ Wide Open IV. 1000 / 1000 SIG BOLUS AMANDA Rx#:[id number] Other: # Voids 3 Date of Last Bowel Movement 04/12/18 04/12/18 - Constitutional mild distress, obese, cooperative - Routine HEENT Exam Head: Present: normocephalic ENT: Present: mucous membranes moist - Routine Respiratory Exam Present: accessory muscle use (No obvious shortness of breath) - Routine Cardiovascular Exam Present: S1, S2 (Patient takes baby aspirin) - Routine Abdominal Exam Present: normoactive bowel sounds (Soft bowel sounds round, mild or minimal distention right upper quadrant and mid abdominal discomfort which is worse with palpation.) - Routine Skin Exam Present: intact - Routine Neurological Exam Present: alert <Shiloh Concepcion - Last Filed: 04/13/18 10:21> Vital signs: Vital Signs 04/12/18 18:21 04/12/18 18:38 04/12/18 22:37 Temperature 100.6 F H Pulse Rate 90 96 H 77 Respiratory Rate 20 18 Blood Pressure 168/70 H 149/64 H Pulse Oximetry 98 97 97 04/13/18 00:00 04/13/18 04:00 04/13/18 08:00 Temperature 100.8 F H 98.6 F 98.3 F Pulse Rate 90 80 70 Respiratory Rate 17 18 18 Blood Pressure 125/60 127/60 114/57 L Pulse Oximetry 97 98 97 04/13/18 12:00 Temperature 98.1 F Pulse Rate 59 L Respiratory Rate 18 Blood Pressure 104/58 L Pulse Oximetry 97 Intake & Output 04/12/18 04/13/18 04/13/18 18:59 06:59 18:59 Intake Total 1100 / 1100 1050 / 1050 Balance 1100 / 1100 1050 / 1050 Weight 105 kg Intake: IV 1100 / 1100 1050 / 1050 NS Inj 1,000 ML @ 100 mls/hr IV 1000 / 1000 .CONT .Q10H [facility] Rx#:[id number] Zosyn 3.375 GM Premix 50 ML @ 100 / 100 50 / 50 100 mls/hr IV.SIG Q6H [facility] Rx#: [id number] NS Inj 1,000 ML @ Wide Open IV. 1000 / 1000 SIG BOLUS AMANDA Rx#:[id number] Other: # Voids 3 Date of Last Bowel Movement 04/12/18 04/12/18 <Jose Gupta E - Last Filed: 04/13/18 15:50> Results - Labs CBC & Chem 7: 04/13/18 05:35 04/13/18 05:35 Labs: Laboratory Results - last 24 hr 04/12/18 04/12/18 04/12/18 18:30 18:30 18:30 WBC 6.8 RBC 2.71 L Hgb 9.7 L Hct 27.9 L MCV 102.8 H MCH 35.6 H MCHC 34.6 RDW 19.6 H Plt Count 562 H MPV 8.2 Neut % (Auto) 90.9 H Lymph % (Auto) 5.1 L [place] % (Auto) 2.8 Eos % (Auto) 0.6 Baso % (Auto) 0.6 Neut # (Auto) 6.2 Lymph # (Auto) 0.3 L [place] # (Auto) 0.2 Eos # (Auto) 0.0 Baso # (Auto) 0.0 WBC Differential . Differential Comment Auto diff final Sodium 139 Potassium 4.2 Chloride 105 Carbon Dioxide 25.4 Anion Gap 9 BUN 21 H Creatinine 1.17 Estimated GFR 61 L POC Glucose Random Glucose 104 Lactic Acid Calcium 8.8 Magnesium 1.7 Total Bilirubin 1.7 H AST 232 H ALT 251 H Alkaline Phosphatase 459 H Total Protein 7.1 Albumin 3.8 Lipase 72 L Urine Color Urine Clarity Urine pH Ur Specific [place] Urine Protein Urine Glucose (UA) Urine Ketones Urine Occult Blood Urine Nitrate Urine Bilirubin Urine Urobilinogen Ur Leukocyte Esterase Urine RBC Urine WBC Micro UA Comment Ur Microscopic Review Urine Culture Comments 04/12/18 04/12/18 04/12/18 18:30 19:00 20:00 WBC RBC Hgb Hct MCV MCH MCHC RDW Plt Count MPV Neut % (Auto) Lymph % (Auto) [place] % (Auto) Eos % (Auto) Baso % (Auto) Neut # (Auto) Lymph # (Auto) [place] # (Auto) Eos # (Auto) Baso # (Auto) WBC Differential Differential Comment Sodium Potassium Chloride Carbon Dioxide Anion Gap BUN Creatinine Estimated GFR POC Glucose 115 H Random Glucose Lactic Acid 1.4 Calcium Magnesium Total Bilirubin AST ALT Alkaline Phosphatase Total Protein Albumin Lipase Urine Color Myla Urine Clarity Clear Urine pH 7.0 Ur Specific [place] 1.018 Urine Protein Negative Urine Glucose (UA) Negative Urine Ketones Negative Urine Occult Blood Negative Urine Nitrate Negative Urine Bilirubin Negative Urine Urobilinogen 4 or greater Ur Leukocyte Esterase Negative Urine RBC Less than 1 Urine WBC Less than 1 Micro UA Comment Culture not ind Ur Microscopic Review Not Reportable Urine Culture Comments Culture not ind 04/13/18 04/13/18 05:35 05:35 WBC 7.0 RBC 2.49 L Hgb 8.8 L Hct 25.3 L MCV 101.3 H MCH 35.5 H MCHC 35.0 RDW 19.6 H Plt Count 462 H MPV 7.9 Neut % (Auto) 86.5 H Lymph % (Auto) 9.3 [place] % (Auto) 3.5 Eos % (Auto) 0.3 Baso % (Auto) 0.4 Neut # (Auto) 6.0 Lymph # (Auto) 0.6 L [place] # (Auto) 0.2 Eos # (Auto) 0.0 Baso # (Auto) 0.0 WBC Differential . Differential Comment Auto diff final Sodium 142 Potassium 3.8 Chloride 107 Carbon Dioxide 24.9 Anion Gap 10 BUN 16 Creatinine 1.23 Estimated GFR 58 L POC Glucose Random Glucose 105 Lactic Acid Calcium 7.9 L D Magnesium Total Bilirubin 2.8 H AST 166 H ALT 246 H Alkaline Phosphatase 419 H Total Protein 6.4 D Albumin 3.4 Lipase Urine Color Urine Clarity Urine pH Ur Specific [place] Urine Protein Urine Glucose (UA) Urine Ketones Urine Occult Blood Urine Nitrate Urine Bilirubin Urine Urobilinogen Ur Leukocyte Esterase Urine RBC Urine WBC Micro UA Comment Ur Microscopic Review Urine Culture Comments - Imaging Impressions Chest X-Ray 04/12/18 18:38 CONCLUSION: No acute cardiopulmonary disease. Right basilar scarring again noted. Gallbladder Ultrasound 04/12/18 20:10 CONCLUSION: 1. Distended gallbladder and the intrahepatic as well as extrahepatic biliary tree. Distal duct not well visualized by ultrasound; retrospective review of recent CT shows findings concerning for a distal duct stone, series 3 image 34. The stone is probably around 8 mm in size. No evidence of cholecystitis. 2. Nonspecific hepatomegaly. 3. Small, but benign-appearing right renal cyst. <Shiloh Concepcion - Last Filed: 04/13/18 10:21> - Labs CBC & Chem 7: 04/13/18 05:35 04/13/18 05:35 Labs: Laboratory Results - last 24 hr 04/12/18 04/12/18 04/12/18 18:30 18:30 18:30 WBC 6.8 RBC 2.71 L Hgb 9.7 L Hct 27.9 L MCV 102.8 H MCH 35.6 H MCHC 34.6 RDW 19.6 H Plt Count 562 H MPV 8.2 Neut % (Auto) 90.9 H Lymph % (Auto) 5.1 L [place] % (Auto) 2.8 Eos % (Auto) 0.6 Baso % (Auto) 0.6 Neut # (Auto) 6.2 Lymph # (Auto) 0.3 L [place] # (Auto) 0.2 Eos # (Auto) 0.0 Baso # (Auto) 0.0 WBC Differential . Differential Comment Auto diff final Sodium 139 Potassium 4.2 Chloride 105 Carbon Dioxide 25.4 Anion Gap 9 BUN 21 H Creatinine 1.17 Estimated GFR 61 L POC Glucose Random Glucose 104 Lactic Acid Calcium 8.8 Magnesium 1.7 Total Bilirubin 1.7 H AST 232 H ALT 251 H Alkaline Phosphatase 459 H Total Protein 7.1 Albumin 3.8 Lipase 72 L Urine Color Urine Clarity Urine pH Ur Specific [place] Urine Protein Urine Glucose (UA) Urine Ketones Urine Occult Blood Urine Nitrate Urine Bilirubin Urine Urobilinogen Ur Leukocyte Esterase Urine RBC Urine WBC Micro UA Comment Ur Microscopic Review Urine Culture Comments 10/01/18 10/01/18 10/01/18 18:30 19:00 20:00 WBC RBC Hgb Hct MCV MCH MCHC RDW Plt Count MPV Neut % (Auto) Lymph % (Auto) [place] % (Auto) Eos % (Auto) Baso % (Auto) Neut # (Auto) Lymph # (Auto) [place] # (Auto) Eos # (Auto) Baso # (Auto) WBC Differential Differential Comment Sodium Potassium Chloride Carbon Dioxide Anion Gap BUN Creatinine Estimated GFR POC Glucose 115 H Random Glucose Lactic Acid 1.4 Calcium Magnesium Total Bilirubin AST ALT Alkaline Phosphatase Total Protein Albumin Lipase Urine Color Myla Urine Clarity Clear Urine pH 7.0 Ur Specific [place] 1.018 Urine Protein Negative Urine Glucose (UA) Negative Urine Ketones Negative Urine Occult Blood Negative Urine Nitrate Negative Urine Bilirubin Negative Urine Urobilinogen 4 or greater Ur Leukocyte Esterase Negative Urine RBC Less than 1 Urine WBC Less than 1 Micro UA Comment Culture not ind Ur Microscopic Review Not Reportable Urine Culture Comments Culture not ind 04/13/18 04/13/18 05:35 05:35 WBC 7.0 RBC 2.49 L Hgb 8.8 L Hct 25.3 L MCV 101.3 H MCH 35.5 H MCHC 35.0 RDW 19.6 H Plt Count 462 H MPV 7.9 Neut % (Auto) 86.5 H Lymph % (Auto) 9.3 [place] % (Auto) 3.5 Eos % (Auto) 0.3 Baso % (Auto) 0.4 Neut # (Auto) 6.0 Lymph # (Auto) 0.6 L [place] # (Auto) 0.2 Eos # (Auto) 0.0 Baso # (Auto) 0.0 WBC Differential . Differential Comment Auto diff final Sodium 142 Potassium 3.8 Chloride 107 Carbon Dioxide 24.9 Anion Gap 10 BUN 16 Creatinine 1.23 Estimated GFR 58 L POC Glucose Random Glucose 105 Lactic Acid Calcium 7.9 L D Magnesium Total Bilirubin 2.8 H AST 166 H ALT 246 H Alkaline Phosphatase 419 H Total Protein 6.4 D Albumin 3.4 Lipase Urine Color Urine Clarity Urine pH Ur Specific [place] Urine Protein Urine Glucose (UA) Urine Ketones Urine Occult Blood Urine Nitrate Urine Bilirubin Urine Urobilinogen Ur Leukocyte Esterase Urine RBC Urine WBC Micro UA Comment Ur Microscopic Review Urine Culture Comments - Imaging Impressions Chest X-Ray 04/12/18 18:38 CONCLUSION: No acute cardiopulmonary disease. Right basilar scarring again noted. Gallbladder Ultrasound 04/12/18 20:10 CONCLUSION: 1. Distended gallbladder and the intrahepatic as well as extrahepatic biliary tree. Distal duct not well visualized by ultrasound; retrospective review of recent CT shows findings concerning for a distal duct stone, series 3 image 34. The stone is probably around 8 mm in size. No evidence of cholecystitis. 2. Nonspecific hepatomegaly. 3. Small, but benign-appearing right renal cyst. <Jose Gupta E - Last Filed: 04/13/18 15:50> Assessment and Plan - Plan 73-year-old male who presented to the emergency room on 04/12/2018 with fever as high as 102 at home over the past 24 hours as well as abdominal pain predominantly in the right upper quadrant and mid abdomen. Patient states onset of symptoms was approximately 2 months ago but symptoms worsened over the past 24 hours. Patient is currently being treated for myelodysplastic syndrome and has been on chemotherapy. Current comorbidities from a GI perspective include Diane's esophagus and GERD in which patient takes Protonix daily. Patient denies any family history of colon cancer. Patient does note symptoms of nausea often known for the past 2 months and has vomited only one time and has had diarrhea x1. Patient denies any history of constipation. He does note generalized weakness and fatigue but felt like it was related to his current chemotherapy. Labs shows hemoglobin initially 9.7 now 8.8, bilirubin increased to 2.8, initial AST 232 on admission now 166, admission ALT 251 now 246, alkaline phosphatase 419. Patient had gallbladder ultrasound which did show distended gallbladder and biliary tree, hepatomegaly and no evidence of cholecystitis. According to the record outpatient CT scan which was initially reported negative was reread and 8 mm stone was noted in the common bile duct. Gastroenterology was consulted to assist with patient's plan of care and choledocholithiasis. Abdominal pain right upper quadrant and right mid quadrant, initial onset approximately 2 months ago but worsened over the past 24 hours Choledocholithiasis, distal duct stone measuring approximately 8 mm in size and the common bile duct. Rule out possible early ascending cholangitis. Nausea, vomited x1 small amount Loose stools x1, nonspecific could be related to multiple comorbidities listed Plan N.p.o. Consent for ERCP to be done today on 04/13/[address] Gupta, procedure explained to family and patient Protonix Bowel regimen as needed Monitor labs with special attention to LFTs and alkaline phosphatase as well as his hemoglobin for any further trending down Further recommendations to follow Patient was seen per myself and Dr. Gupta, note was written on his behalf <Shiloh Concepcion - Last Filed: 04/13/18 10:21> - Plan Patient seen and examined Agree with above Continue with current supportive care Monitor labs We will proceed with an ERCP next <Jose Gupta - Last Filed: 04/13/18 15:50>
[2018-04-13] MEDS: Sod Chloride 0.9% Inj 1,000 ML IV.CONT SCH ×3 (13:26→22:38)
[2018-04-13] MEDS ORDERED: Succinylcholine Inj 100 MG/5 ML Syringe IV.PUSH ONE (13:56)
[2018-04-13] MEDS ORDERED: Lidocaine PF 1% Inj 5 ML Syringe INFILTRATN ONE (13:56)
[2018-04-13] MEDS ORDERED: Morphine Inj 4 MG/ML Vial IV.PUSH PRN (15:42)
--- NOTE | 2018-04-13 16:06 | P.PCN ---
Date of procedure: 04/13/18 Pre-op diagnosis: Elevated liver function tests, choledocholithiasis Procedure: PROCEDURE PERFORMED ERCP with sphincterotomy and balloon extraction PROCEDURE: The procedure, risks and benefits were discussed with Patient/POA and informed consent was obtained. Anesthesia sedated Patient with Diprivan patient was intubated. Patient was placed in the prone position. ERCP: Patient was placed in a prone position. The Pentax videoscope was introduced through the oropharynx and advanced to the second portion of the duodenum where the ampula was identified. FINDINGS: The ampulla was unremarkable and within normal limits initially we obtained cannulation of the pancreatic duct a small amount of contrast was injected and this appeared to be unremarkable multiple attempts were made to cannulate the common bile duct and they were unsuccessful and so a needle knife sphincterotomy was performed thereafter we were able to obtain cannulation of the common bile duct which appeared to be dilated with a filling defect a sphincterotomy was performed and balloon extraction removed a small stone and thereafter the procedure was terminated ESTIMATED BLOOD LOSS: None SPECIMENS REMOVED: None COMPLICATIONS: None IMPRESSION: Choledocholithiasis PLAN: Supportive care Monitor labs Indomethacin 100 mg suppository Aggressive hydration Anesthesia: SUNGA Surgeon: Jose Gupta Condition: stable Disposition: floor
--- NOTE | 2018-04-13 16:53 | P.PNIM ---
Subjective Interval history: Patient seen today around noon, prior to procedure. Reports abdominal pain is improving. Denies any chest pain or shortness of breath. Physical Exam Vital signs: Vital Signs 04/12/18 18:21 04/12/18 18:38 04/12/18 22:37 Temperature 100.6 F H Pulse Rate 90 96 H 77 Respiratory Rate 20 18 Blood Pressure 168/70 H 149/64 H Pulse Oximetry 98 97 97 04/13/18 00:00 04/13/18 04:00 04/13/18 08:00 Temperature 100.8 F H 98.6 F 98.3 F Pulse Rate 90 80 70 Respiratory Rate 17 18 18 Blood Pressure 125/60 127/60 114/57 L Pulse Oximetry 97 98 97 04/13/18 12:00 04/13/18 15:40 04/13/18 15:55 Temperature 98.1 F 97.5 F L Pulse Rate 59 L 80 81 Respiratory Rate 18 22 20 Blood Pressure 104/58 L 120/57 L 118/56 L Pulse Oximetry 97 96 99 04/13/18 16:10 Temperature Pulse Rate 72 Respiratory Rate 20 Blood Pressure 136/60 Pulse Oximetry 99 Intake & Output 04/12/18 04/13/18 04/13/18 18:59 06:59 18:59 Intake Total 1100 / 1100 2049 / 2049 Balance 1100 / 1100 2049 Weight 105 kg Intake: IV 1100 / 1100 1050 / 1050 NS Inj 1,000 ML @ 100 mls/hr IV 1000 / 1000 .CONT .Q10H [facility] Rx#:[id number] Zosyn 3.375 GM Premix 50 ML @ 100 / 100 50 / 50 100 mls/hr IV.SIG Q6H [facility] Rx#: [id number] NS Inj 1,000 ML @ Wide Open IV. 1000 / 1000 SIG BOLUS [facility] Rx#:[id number] Anesthesia Amount 1000 / 1000 Other: # Voids 3 Date of Last Bowel Movement 04/12/18 04/12/18 Narrative: GENERAL: Patient sitting up in bed. Appears comfortable. SKIN: Warm and dry. HEAD: Normocephalic. EYES: No scleral icterus. No injection or drainage. NECK: Supple, trachea midline. No JVD. CARDIOVASCULAR: Regular rate and rhythm without murmurs, gallops, or rubs. RESPIRATORY: Breath sounds equal bilaterally. No accessory muscle use. GASTROINTESTINAL: Abdomen soft, non-tender, nondistended. MUSCULOSKELETAL: No cyanosis, or edema. BACK: Nontender without obvious deformity. No CVA tenderness. Results - Labs CBC & Chem 7: 04/13/18 05:35 04/13/18 05:35 Laboratory Results - last 24 hr 04/12/18 04/12/18 04/12/18 18:30 18:30 18:30 WBC 6.8 RBC 2.71 L Hgb 9.7 L Hct 27.9 L MCV 102.8 H MCH 35.6 H MCHC 34.6 RDW 19.6 H Plt Count 562 H MPV 8.2 Neut % (Auto) 90.9 H Lymph % (Auto) 5.1 L [place] % (Auto) 2.8 Eos % (Auto) 0.6 Baso % (Auto) 0.6 Neut # (Auto) 6.2 Lymph # (Auto) 0.3 L [place] # (Auto) 0.2 Eos # (Auto) 0.0 Baso # (Auto) 0.0 WBC Differential . Differential Comment Auto diff final Sodium 139 Potassium 4.2 Chloride 105 Carbon Dioxide 25.4 Anion Gap 9 BUN 21 H Creatinine 1.17 Estimated GFR 61 L POC Glucose Random Glucose 104 Lactic Acid Calcium 8.8 Magnesium 1.7 Total Bilirubin 1.7 H AST 232 H ALT 251 H Alkaline Phosphatase 459 H Total Protein 7.1 Albumin 3.8 Lipase 72 L Urine Color Urine Clarity Urine pH Ur Specific [place] Urine Protein Urine Glucose (UA) Urine Ketones Urine Occult Blood Urine Nitrate Urine Bilirubin Urine Urobilinogen Ur Leukocyte Esterase Urine RBC Urine WBC Micro UA Comment Ur Microscopic Review Urine Culture Comments 04/12/18 04/12/18 04/12/18 18:30 19:00 20:00 WBC RBC Hgb Hct MCV MCH MCHC RDW Plt Count MPV Neut % (Auto) Lymph % (Auto) [place] % (Auto) Eos % (Auto) Baso % (Auto) Neut # (Auto) Lymph # (Auto) [place] # (Auto) Eos # (Auto) Baso # (Auto) WBC Differential Differential Comment Sodium Potassium Chloride Carbon Dioxide Anion Gap BUN Creatinine Estimated GFR POC Glucose 115 H Random Glucose Lactic Acid 1.4 Calcium Magnesium Total Bilirubin AST ALT Alkaline Phosphatase Total Protein Albumin Lipase Urine Color [place]yla Urine Clarity Clear Urine pH 7.0 Ur Specific [place] 1.018 Urine Protein Negative Urine Glucose (UA) Negative Urine Ketones Negative Urine Occult Blood Negative Urine Nitrate Negative Urine Bilirubin Negative Urine Urobilinogen 4 or greater Ur Leukocyte Esterase Negative Urine RBC Less than 1 Urine WBC Less than 1 Micro UA Comment Culture not ind Ur Microscopic Review Not Reportable Urine Culture Comments Culture not ind 04/13/18 04/13/18 05:35 05:35 WBC 7.0 RBC 2.49 L Hgb 8.8 L Hct 25.3 L MCV 101.3 H MCH 35.5 H MCHC 35.0 RDW 19.6 H Plt Count 462 H MPV 7.9 Neut % (Auto) 86.5 H Lymph % (Auto) 9.3 [place] % (Auto) 3.5 Eos % (Auto) 0.3 Baso % (Auto) 0.4 Neut # (Auto) 6.0 Lymph # (Auto) 0.6 L [place] # (Auto) 0.2 Eos # (Auto) 0.0 Baso # (Auto) 0.0 WBC Differential . Differential Comment Auto diff final Sodium 142 Potassium 3.8 Chloride 107 Carbon Dioxide 24.9 Anion Gap 10 BUN 16 Creatinine 1.23 Estimated GFR 58 L POC Glucose Random Glucose 105 Lactic Acid Calcium 7.9 L D Magnesium Total Bilirubin 2.8 H AST 166 H ALT 246 H Alkaline Phosphatase 419 H Total Protein 6.4 D Albumin 3.4 Lipase Urine Color Urine Clarity Urine pH Ur Specific [place] Urine Protein Urine Glucose (UA) Urine Ketones Urine Occult Blood Urine Nitrate Urine Bilirubin Urine Urobilinogen Ur Leukocyte Esterase Urine RBC Urine WBC Micro UA Comment Ur Microscopic Review Urine Culture Comments Microbiology 04/12/18 18:30 Blood - Peripheral Aerobic Blood Culture - Preliminary No growth in 1 day 04/12/18 18:30 Blood - Peripheral Anaerobic Blood Culture - Preliminary No growth in 1 day 04/12/18 18:30 Blood - Peripheral Aerobic Blood Culture - Preliminary No growth in 1 day 04/12/18 18:30 Blood - Peripheral Anaerobic Blood Culture - Preliminary No growth in 1 day - Imaging Impressions Chest X-Ray 04/12/18 18:38 CONCLUSION: No acute cardiopulmonary disease. Right basilar scarring again noted. Gallbladder Ultrasound 04/12/18 20:10 CONCLUSION: 1. Distended gallbladder and the intrahepatic as well as extrahepatic biliary tree. Distal duct not well visualized by ultrasound; retrospective review of recent CT shows findings concerning for a distal duct stone, series 3 image 34. The stone is probably around 8 mm in size. No evidence of cholecystitis. 2. Nonspecific hepatomegaly. 3. Small, but benign-appearing right renal cyst. Assessment and Plan - Plan // Choledocholithiasis/transaminitis/hyperbilirubinemia //suspected sepsis on admission in immunocompromised host. =With tachycardia, fever of 100.8. tachycardia and fevers have resolved at this time. Gallbladder ultrasound significant for distended gallbladder with intrahepatic and extrahepatic biliary tree dilation. CT of the abdomen/pelvis concerning for distal duct stone that is 8 mm in size. No evidence of cholecystitis. Gastroenterology consulted, appreciate assistance Zosyn = 04/13. Successful ERCP. Appreciate GI assistance. Continue antibiotics. Follow labs. // Fever May be secondary to above Antibiotics as above Cultures pending as patient currently on chemotherapy regimen for MDS UA negative //Myelodysplastic syndrome //Chronic anemia Continue outpatient follow-up with oncology appreciate oncology assistance. Follow //COPD/anxiety/Diane's esophagus/hypothyroidism Continue home medications FEN N.p.o. Electrolytes: Monitor and replete as needed NS at 100 cc/hour Holding pharmacologic anticoagulation due to procedural intervention Discussed Condition With: Patient, nurse, family bedside. Discharge Planning: Hopefully home in 1-2 days when cleared by GI
--- NOTE | 2018-04-13 17:47 | ECG ---
Date Performed: 04/13/2018 Time Performed: 04:59:20 PTAGE: 73 years EKG: Regular supraventricular rhythm Severe right axis deviation Possible anterior infarct - age undetermined Inferior/lateral ST-T changes may be due to myocardial ischemia Likely limb lead revers al Abnormal ECG NO PREVIOUS TRACING DOCTOR: Riaz Cameron Interpretating Date/Time 04/13/2018 17:46:50
[2018-04-13] MEDS: ALPRAZolam 0.5 MG Tablet PO SCH (20:42)
[2018-04-14] MEDS: Piperacil/Tazo 3.375 GM Premix 50 ML IV.SIG SCH ×4 (04:11→21:07)
[2018-04-14] MEDS: Levothyroxine 150 MCG Tablet PO SCH (05:17)
[2018-04-14] MEDS: Sod Chloride 0.9% Inj 1,000 ML IV.CONT SCH ×4 (05:18→21:06)
[2018-04-14 06:16] LABS: Hematocrit 24.8 % (39.0-51.0); Hemoglobin 8.2 gm/dL (13.0-17.0); Mean Corpuscular Hemoglobin 34.4 pg (27.0-34.0); Mean Corpuscular Volume 104.1 fL (80.0-100.0); Mean Platelet Volume 7.9 fL (7.0-11.0); Platelet Count 420 th/mm3 (150-450); Red Blood Count 2.38 mil/mm3 (4.50-5.90); Red Cell Distribution Width 20.8 % (11.6-17.2); White Blood Count 4.8 th/mm3 (4.0-11.0)
[2018-04-14 06:29] LABS: Albumin 3.2 g/dL (3.4-5.0); Anion Gap 10 meq/L (5-15); Aspartate Aminotransferase 64 U/L (15-37); Blood Urea Nitrogen 15 mg/dL (7-18); Calcium 7.9 mg/dL (8.5-10.1); Carbon Dioxide 22.2 meq/L (21.0-32.0); Chloride 109 meq/L (98-107); Glomerular Filtration Rate 71 mL/min (>89); Glucose,Random 85 mg/dL (74-106); Potassium 3.4 meq/L (3.5-5.1); Sodium 141 meq/L (136-145)
[2018-04-14 06:30] LABS: Alanine Aminotransferase 160 U/L (12-78)
[2018-04-14 06:32] LABS: Alkaline Phosphatase 322 U/L (45-117); Total Protein 6.3 g/dL (6.4-8.2)
[2018-04-14] MEDS: Senna/Docusate Sodium 8.6/50 MG Tablet PO SCH ×2 (10:38→21:05)
[2018-04-14] MEDS: Metoprolol Tartrate 25 MG Tablet PO SCH ×2 (10:38→21:05)
--- NOTE | 2018-04-14 11:43 | P.PNIM ---
Subjective Interval history: 73-year-old male with a past medical history significant for history of lung cancer, myelodysplastic syndrome on chemotherapy, COPD, Diane's esophagus and hyperlipidemia presents to the emergency department for evaluation of a fever. The patient reports his fever at home was 102. T-max in the emergency department was 100.6. He called his oncologist, Dr. Weeks, who recommended further evaluation in the emergency department. The patient complained of a 1 day history of right upper quadrant abdominal pain. He denies any nausea or vomiting. No diarrhea. No chest pain or shortness of breath. No lateralizing signs/symptoms. Gallbladder ultrasound significant for distal duct stone. 10-2 Patient seen today around noon, prior to procedure. Reports abdominal pain is improving. Denies any chest pain or shortness of breath. 10-3 HAD ERCP YESTERDAY DIET ADVANCED BY GI TODAY AM LABS BILI AND LFTS LESS TODAY DW RN AND PT AND GI Physical Exam Vital signs: Vital Signs 04/13/18 12:00 04/13/18 15:40 04/13/18 15:55 Temperature 98.1 F 97.5 F L Pulse Rate 59 L 80 81 Respiratory Rate 18 22 20 Blood Pressure 104/58 L 120/57 L 118/56 L Pulse Oximetry 97 96 99 04/13/18 16:10 04/13/18 20:00 04/13/18 23:27 Temperature 98.4 F 98.3 F Pulse Rate 72 64 66 Respiratory Rate 20 17 18 Blood Pressure 136/60 138/63 114/55 L Pulse Oximetry 99 96 96 04/14/18 04:00 04/14/18 08:00 Temperature 98.3 F 98.1 F Pulse Rate 67 67 Respiratory Rate 17 18 Blood Pressure 125/61 117/58 L Pulse Oximetry 97 97 Intake & Output 04/13/18 04/14/18 04/14/18 18:59 06:59 18:59 Intake Total 3100 / 3100 2099 50 / 50 Balance 3100 / 3100 2099 50 / 50 Weight 105 kg Intake: IV 2099 50 / 50 NS Inj 1,000 ML @ 150 mls/hr IV 1999 .CONT .Q6H40M [facility] Rx#:[id number] Zosyn 3.375 GM Premix 50 ML @ 100 / 100 100 / 100 50 / 50 100 mls/hr IV.SIG Q6H [facility] Rx#: [id number] Anesthesia Amount 1000 / 1000 Other: # Voids 2 7 Date of Last Bowel Movement 04/12/18 04/12/18 04/12/18 Narrative: GENERAL: Patient sitting up in bed. Appears comfortable. SKIN: Warm and dry. HEAD: Normocephalic. EYES: No scleral icterus. No injection or drainage. NECK: Supple, trachea midline. No JVD. CARDIOVASCULAR: Regular rate and rhythm without murmurs, gallops, or rubs. RESPIRATORY: Breath sounds equal bilaterally. No accessory muscle use. GASTROINTESTINAL: Abdomen soft, non-tender, nondistended. MUSCULOSKELETAL: No cyanosis, or edema. BACK: Nontender without obvious deformity. No CVA tenderness. Results - Labs CBC & Chem 7: 04/14/18 05:28 04/14/18 05:28 Laboratory Results - last 24 hr 04/13/18 04/13/18 04/14/18 05:35 20:42 05:28 WBC 4.8 RBC 2.38 L Hgb 8.2 L Hct 24.8 L MCV 104.1 H MCH 34.4 H MCHC 33.0 RDW 20.8 H Plt Count 420 MPV 7.9 Sodium Potassium Chloride Carbon Dioxide Anion Gap BUN Creatinine Estimated GFR POC Glucose 103 Random Glucose Calcium Total Bilirubin AST ALT Alkaline Phosphatase Total Protein Albumin Vitamin B12 678 04/14/18 05:28 WBC RBC Hgb Hct MCV MCH MCHC RDW Plt Count MPV Sodium 141 Potassium 3.4 L Chloride 109 H Carbon Dioxide 22.2 Anion Gap 10 BUN 15 Creatinine 1.03 Estimated GFR 71 L POC Glucose Random Glucose 85 Calcium 7.9 L Total Bilirubin 1.6 H AST 64 H ALT 160 H Alkaline Phosphatase 322 H Total Protein 6.3 L Albumin 3.2 L Vitamin B12 Microbiology 04/12/18 18:30 Blood - Peripheral Aerobic Blood Culture - Preliminary No growth in 2 days 04/12/18 18:30 Blood - Peripheral Anaerobic Blood Culture - Preliminary No growth in 2 days 04/12/18 18:30 Blood - Peripheral Aerobic Blood Culture - Preliminary No growth in 2 days 04/12/18 18:30 Blood - Peripheral Anaerobic Blood Culture - Preliminary No growth in 2 days - Imaging ITS Impressions Chest X-Ray 04/12/18 18:38 CONCLUSION: No acute cardiopulmonary disease. Right basilar scarring again noted. Gallbladder Ultrasound 04/12/18 20:10 CONCLUSION: 1. Distended gallbladder and the intrahepatic as well as extrahepatic biliary tree. Distal duct not well visualized by ultrasound; retrospective review of recent CT shows findings concerning for a distal duct stone, series 3 image 34. The stone is probably around 8 mm in size. No evidence of cholecystitis. 2. Nonspecific hepatomegaly. 3. Small, but benign-appearing right renal cyst. - Procedures Date of procedure: 04/13/18 Pre-op diagnosis: Elevated liver function tests, choledocholithiasis Procedure: PROCEDURE PERFORMED ERCP with sphincterotomy and balloon extraction PROCEDURE: The procedure, risks and benefits were discussed with Patient/POA and informed consent was obtained. Anesthesia sedated Patient with Diprivan patient was intubated. Patient was placed in the prone position. ERCP: Patient was placed in a prone position. The Pentax videoscope was introduced through the oropharynx and advanced to the second portion of the duodenum where the ampula was identified. FINDINGS: The ampulla was unremarkable and within normal limits initially we obtained cannulation of the pancreatic duct a small amount of contrast was injected and this appeared to be unremarkable multiple attempts were made to cannulate the common bile duct and they were unsuccessful and so a needle knife sphincterotomy was performed thereafter we were able to obtain cannulation of the common bile duct which appeared to be dilated with a filling defect a sphincterotomy was performed and balloon extraction removed a small stone and thereafter the procedure was terminated ESTIMATED BLOOD LOSS: None SPECIMENS REMOVED: None COMPLICATIONS: None IMPRESSION: Choledocholithiasis PLAN: Supportive care Monitor labs Indomethacin 100 mg suppository Aggressive hydration Anesthesia: GETA Surgeon: Jose Gupta Condition: stable Disposition: floor Documented By: Jose Gupta MD Assessment and Plan - Plan Choledocholithiasis/transaminitis/hyperbilirubinemia suspected sepsis on admission in immunocompromised host. =With tachycardia, fever of 100.8. tachycardia and fevers have resolved at this time. Gallbladder ultrasound significant for distended gallbladder with intrahepatic and extrahepatic biliary tree dilation. CT of the abdomen/pelvis concerning for distal duct stone that is 8 mm in size. No evidence of cholecystitis. Gastroenterology consulted, appreciate assistance Zosyn = 04/13. Successful ERCP. Appreciate GI assistance. Continue antibiotics. Follow labs. Fever May be secondary to above Antibiotics as above Cultures pending as patient currently on chemotherapy regimen for MDS UA negative Myelodysplastic syndrome Chronic anemia Continue outpatient follow-up with oncology appreciate oncology assistance. Follow COPD/anxiety/Diane's esophagus/hypothyroidism Continue home medications FEN N.p.o. Electrolytes: Monitor and replete as needed NS at 100 cc/hour Holding pharmacologic anticoagulation due to procedural intervention Discussed Condition With: Patient, nurse, family bedside. DIET ADVANCED BY GI AM LABS NUMBERS IMPROVED Code Status: FULL CODE Discussed Condition With: RN AND PT AND CM Discharge Planning: PENDING GI IMPROVEMENT AND CLEARANCE
--- NOTE | 2018-04-14 14:57 | P.PNGI ---
Subjective Interval history: Up to the bathroom soft BM no obvious bleeding no nausea no vomiting no abdominal pain Hungry tolerating clear liquids without any problems <Shiloh Concepcion - Last Filed: 04/14/18 15:12> Physical Exam Vital signs: Vital Signs 04/13/18 15:40 04/13/18 15:55 04/13/18 16:10 Temperature 97.5 F L Pulse Rate 80 81 72 Respiratory Rate 22 20 20 Blood Pressure 120/57 L 118/56 L 136/60 Pulse Oximetry 96 99 99 04/13/18 20:00 04/13/18 23:27 04/14/18 04:00 Temperature 98.4 F 98.3 F 98.3 F Pulse Rate 64 66 67 Respiratory Rate 17 18 17 Blood Pressure 138/63 114/55 L 125/61 Pulse Oximetry 96 96 97 04/14/18 08:00 04/14/18 12:00 Temperature 98.1 F 97.7 F Pulse Rate 67 60 Respiratory Rate 18 18 Blood Pressure 117/58 L 137/63 Pulse Oximetry 97 97 Intake & Output 04/13/18 04/14/18 04/14/18 18:59 06:59 18:59 Intake Total 3100 / 3100 2100 / 2100 50 / 50 Balance 3100 / 3100 2100 / 2100 50 / 50 Weight 105 kg Intake: IV 2099 / 2099 2099 / 2100 50 / 50 NS Inj 1,000 ML @ 150 mls/hr IV 1999 .CONT .Q6H40M [facility] Rx#:[id number] Zosyn 3.375 GM Premix 50 ML @ 100 / 100 100 / 100 50 / 50 100 mls/hr IV.SIG Q6H [facility] Rx#: [id number] Anesthesia Amount 1000 / 1000 Other: # Voids 2 7 Date of Last Bowel Movement 04/12/18 04/12/18 04/12/18 - Constitutional no acute distress, obese, cooperative - Routine HEENT Exam Head: Present: normocephalic ENT: Present: mucous membranes moist - Routine Respiratory Exam Present: accessory muscle use (No obvious shortness of breath or wheezing) - Routine Cardiovascular Exam Present: S1, S2 - Routine Abdominal Exam Present: soft, normoactive bowel sounds ([place],), tenderness (No obvious tenderness no distention) <Shiloh Concepcion - Last Filed: 04/14/18 15:12> Vital signs: Vital Signs 04/13/18 15:55 04/13/18 16:10 04/13/18 20:00 Temperature 98.4 F Pulse Rate 81 72 64 Respiratory Rate 20 20 17 Blood Pressure 118/56 L 136/60 138/63 Pulse Oximetry 99 99 96 04/13/18 23:27 04/14/18 04:00 04/14/18 08:00 Temperature 98.3 F 98.3 F 98.1 F Pulse Rate 66 67 67 Respiratory Rate 18 17 18 Blood Pressure 114/55 L 125/61 117/58 L Pulse Oximetry 96 97 97 04/14/18 12:00 Temperature 97.7 F Pulse Rate 60 Respiratory Rate 18 Blood Pressure 137/63 Pulse Oximetry 97 Intake & Output 04/13/18 04/14/18 04/14/18 18:59 06:59 18:59 Intake Total 3100 / 3100 2100 / 2100 50 / 50 Balance 3100 / 3100 2100 / 2100 50 / 50 Weight 105 kg Intake: IV 2099 / 2100 2099 / 2100 50 / 50 NS Inj 1,000 ML @ 150 mls/hr IV 1999 .CONT .Q6H40M [facility] Rx#:[id number] Zosyn 3.375 GM Premix 50 ML @ 100 / 100 100 / 100 50 / 50 100 mls/hr IV.SIG Q6H [facility] Rx#: [id number] Anesthesia Amount 1000 / 1000 Other: # Voids 2 7 Date of Last Bowel Movement 04/12/18 04/12/18 04/12/18 <Jose Gupta E - Last Filed: 04/14/18 15:52> Results - Labs CBC & Chem 7: 04/14/18 05:28 04/14/18 05:28 Laboratory Results - last 24 hr 04/13/18 04/13/18 04/14/18 05:35 20:42 05:28 WBC 4.8 RBC 2.38 L Hgb 8.2 L Hct 24.8 L MCV 104.1 H MCH 34.4 H MCHC 33.0 RDW 20.8 H Plt Count 420 MPV 7.9 Sodium Potassium Chloride Carbon Dioxide Anion Gap BUN Creatinine Estimated GFR POC Glucose 103 Random Glucose Calcium Total Bilirubin AST ALT Alkaline Phosphatase Total Protein Albumin Vitamin B12 678 04/14/18 05:28 WBC RBC Hgb Hct MCV MCH MCHC RDW Plt Count MPV Sodium 141 Potassium 3.4 L Chloride 109 H Carbon Dioxide 22.2 Anion Gap 10 BUN 15 Creatinine 1.03 Estimated GFR 71 L POC Glucose Random Glucose 85 Calcium 7.9 L Total Bilirubin 1.6 H AST 64 H ALT 160 H Alkaline Phosphatase 322 H Total Protein 6.3 L Albumin 3.2 L Vitamin B12 Microbiology 04/12/18 18:30 Blood - Peripheral Aerobic Blood Culture - Preliminary No growth in 2 days 04/12/18 18:30 Blood - Peripheral Anaerobic Blood Culture - Preliminary No growth in 2 days 04/12/18 18:30 Blood - Peripheral Aerobic Blood Culture - Preliminary No growth in 2 days 04/12/18 18:30 Blood - Peripheral Anaerobic Blood Culture - Preliminary No growth in 2 days - Procedures Date of procedure: 04/13/18 Pre-op diagnosis: Elevated liver function tests, choledocholithiasis Procedure: PROCEDURE PERFORMED ERCP with sphincterotomy and balloon extraction PROCEDURE: The procedure, risks and benefits were discussed with Patient/POA and informed consent was obtained. Anesthesia sedated Patient with Diprivan patient was intubated. Patient was placed in the prone position. ERCP: Patient was placed in a prone position. The Pentax videoscope was introduced through the oropharynx and advanced to the second portion of the duodenum where the ampula was identified. FINDINGS: The ampulla was unremarkable and within normal limits initially we obtained cannulation of the pancreatic duct a small amount of contrast was injected and this appeared to be unremarkable multiple attempts were made to cannulate the common bile duct and they were unsuccessful and so a needle knife sphincterotomy was performed thereafter we were able to obtain cannulation of the common bile duct which appeared to be dilated with a filling defect a sphincterotomy was performed and balloon extraction removed a small stone and thereafter the procedure was terminated ESTIMATED BLOOD LOSS: None SPECIMENS REMOVED: None COMPLICATIONS: None IMPRESSION: Choledocholithiasis PLAN: Supportive care Monitor labs Indomethacin 100 mg suppository Aggressive hydration Anesthesia: GETA Surgeon: Jose Gupta Condition: stable Disposition: floor Documented By: Jose Gupta MD <Shiloh Concepcion - Last Filed: 04/14/18 15:12> - Labs CBC & Chem 7: 04/14/18 05:28 04/14/18 05:28 Laboratory Results - last 24 hr 04/13/18 04/13/1804/14/18 05:35 20:42 05:28 WBC 4.8 RBC 2.38 L Hgb 8.2 L Hct 24.8 L MCV 104.1 H MCH 34.4 H MCHC 33.0 RDW 20.8 H Plt Count 420 MPV 7.9 Sodium Potassium Chloride Carbon Dioxide Anion Gap BUN Creatinine Estimated GFR POC Glucose 103 Random Glucose Calcium Total Bilirubin AST ALT Alkaline Phosphatase Total Protein Albumin Vitamin B12 678 04/14/18 05:28 WBC RBC Hgb Hct MCV MCH MCHC RDW Plt Count MPV Sodium 141 Potassium 3.4 L Chloride 109 H Carbon Dioxide 22.2 Anion Gap 10 BUN 15 Creatinine 1.03 Estimated GFR 71 L POC Glucose Random Glucose 85 Calcium 7.9 L Total Bilirubin 1.6 H AST 64 H ALT 160 H Alkaline Phosphatase 322 H Total Protein 6.3 L Albumin 3.2 L Vitamin B12 Microbiology 04/12/18 18:30 Blood - Peripheral Aerobic Blood Culture - Preliminary No growth in 2 days 04/12/18 18:30 Blood - Peripheral Anaerobic Blood Culture - Preliminary No growth in 2 days 04/12/18 18:30 Blood - Peripheral Aerobic Blood Culture - Preliminary No growth in 2 days 04/12/18 18:30 Blood - Peripheral Anaerobic Blood Culture - Preliminary No growth in 2 days <Jose Gupta - Last Filed: 04/14/18 15:52> Assessment and Plan - Plan Patient is resting in the bed diet clear liquids monitoring for any nausea or vomiting Patient is status post ERCP on 04/13/2018. Ampulla was unremarkable, sphincterotomy was performed and balloon extraction removed a small stone, impression was choledocholithiasis Minimal abdominal soreness but no obvious abdominal pain, labs are trending down with bilirubin 1.6, AST 64 ALT 160 both trending down Hemoglobin 8.2, BM x1 small soft, appetite hungry will advance diet cardiac soft foods Plan Diet cardiac, soft foods encourage p.o. fluids Increase activity up in chair and up in bathroom Bowel regimen and pain meds per attending Monitor labs Zofran Protonix daily Supportive care Patient was seen per myself and Dr. Gupta, note was written on his behalf <Shiloh Concepcion - Last Filed: 04/14/18 15:12> - Plan Patient seen and examined Agree with above Continue with current supportive care Monitor labs <Alonso,Jose E - Last Filed: 04/14/18 15:52>
--- NOTE | 2018-04-14 16:23 | P.PNWCN ---
Wound Care Nurse Consult Description: Consult for Wound Management of Sacrum per Dr Spaulding Communicated with: Patient Patient Gemini, RN Student RN Recommendation: Reposition frequently as needed. Patient is a self turn. Additional information: Patient seen on for wound evaluation of sacrum. Patient states that he has no wound. Patient cooperated with telegraphic typewriter operator and removed clothing for visualization of sacrum, coccyx, and bilateral buttocks. There is scarring noted to the gluteal cleft from what patient states as previous pilonidal cysts , 16 to be exact. No open wounds were visualized.
[2018-04-14] MEDS: ALPRAZolam 0.5 MG Tablet PO SCH (21:05)
[2018-04-15] MEDS: Piperacil/Tazo 3.375 GM Premix 50 ML IV.SIG SCH ×2 (04:16→10:15)
[2018-04-15] MEDS: Sod Chloride 0.9% Inj 1,000 ML IV.CONT SCH (04:17)
[2018-04-15] MEDS: Levothyroxine 150 MCG Tablet PO SCH (05:28)
[2018-04-15 08:01] LABS: Baso % (Auto) 0.7 % (0.0-2.0); Eos # (Auto) 0.2 th/mm3 (0.0-0.4); Eos % (Auto) 5.3 % (0.0-4.0); Hematocrit 25.1 % (39.0-51.0); Hemoglobin 8.4 gm/dL (13.0-17.0); Lymph # (Auto) 0.8 th/mm3 (1.0-4.8); Lymph % (Auto) 20.2 % (9.0-44.0); Mean Corpuscular HGB Conc 33.5 % (32.0-36.0); Mean Corpuscular Hemoglobin 34.8 pg (27.0-34.0); Mean Platelet Volume 7.7 fL (7.0-11.0); Mono # (Auto) 0.2 th/mm3 (0.0-0.9); Mono % (Auto) 4.1 % (0.0-8.0); Neut # (Auto) 2.8 th/mm3 (1.8-7.7); Neut % (Auto) 69.7 % (16.0-70.0); Platelet Count 426 th/mm3 (150-450); Red Blood Count 2.41 mil/mm3 (4.50-5.90)
[2018-04-15 08:15] LABS: Alanine Aminotransferase 116 U/L (12-78); Amylase 72 U/L (25-115); Anion Gap 9 meq/L (5-15); Aspartate Aminotransferase 34 U/L (15-37); Calcium 7.9 mg/dL (8.5-10.1); Carbon Dioxide 23.2 meq/L (21.0-32.0); Chloride 113 meq/L (98-107); Glomerular Filtration Rate 70 mL/min (>89); Glucose,Random 87 mg/dL (74-106); Lipase 277 U/L (73-393); Potassium 3.8 meq/L (3.5-5.1); Sodium 145 meq/L (136-145)
[2018-04-15 08:21] LABS: Alkaline Phosphatase 287 U/L (45-117); Blood Urea Nitrogen 11 mg/dL (7-18); Free T4 (Free Thyroxine) 1.97 ng/dL (0.76-1.46); Phosphorus 2.1 mg/dL (2.5-4.9); Total Protein 6.5 g/dL (6.4-8.2)
[2018-04-15 08:23] LABS: Thyroid Stimulating Hormone 0.047 uIU/mL (0.358-3.740)
[2018-04-15] MEDS: Senna/Docusate Sodium 8.6/50 MG Tablet PO SCH (10:14)
[2018-04-15] MEDS: Metoprolol Tartrate 25 MG Tablet PO SCH (10:14)
--- NOTE | 2018-04-15 11:19 | P.PNONC ---
Subjective Interval history: Patient was seen and examined, vital signs, labs, medications, procedure notes were reviewed. Subjectively; patient reports feeling much improved, he is no longer having chills or rigors, he tells me his abdominal pain is resolved. He ate well last night and is looking forward to eat again today for lunch. The patient and his are in good spirits, they were told that if the patient continues to recover well he would likely be discharged home later today. Objective Vital Signs/Intake & Output: Vital Signs 04/14/18 12:00 04/14/18 16:00 04/14/18 20:00 Temperature 97.7 F 97.9 F 98.0 F Pulse Rate 60 63 82 Respiratory Rate 18 17 16 Blood Pressure 137/63 109/58 L 128/62 Pulse Oximetry 97 98 99 04/14/18 23:41 Temperature 98.1 F Pulse Rate 69 Respiratory Rate 17 Blood Pressure 122/60 Pulse Oximetry 98 Intake & Output 04/14/18 04/15/18 04/15/18 18:59 06:59 18:59 Intake Total 2150 / 2150 1150 / 1150 Balance 2150 / 2150 1150 / 1150 Weight 105 kg Intake: IV 1050 / 1050 1150 / 1150 NS Inj 1,000 ML @ 150 mls/hr IV 1000 / 1000 1000 / 1000 .CONT .Q6H40M AMANDA Rx#:[id number] Zosyn 3.375 GM Premix 50 ML @ 50 / 50 150 / 150 100 mls/hr IV.SIG Q6H AMANDA Rx#: [id number] Oral 1100 / 1100 Other: # Voids 4 Date of Last Bowel Movement 04/12/18 04/14/18 04/15/18 # Bowel Movements 1 Result Diagrams: 04/15/18 06:41 04/15/18 06:41 Laboratory Results: Laboratory Results - last 24 hr 04/14/18 04/15/18 04/15/18 17:24 06:41 06:41 WBC 4.0 RBC 2.41 L Hgb 8.4 L Hct 25.1 L MCV 104.0 H MCH 34.8 H MCHC 33.5 RDW 20.0 H Plt Count 426 MPV 7.7 Neut % (Auto) 69.7 Lymph % (Auto) 20.2 [place] % (Auto) 4.1 Eos % (Auto) 5.3 H Baso % (Auto) 0.7 Neut # (Auto) 2.8 Lymph # (Auto) 0.8 L [place] # (Auto) 0.2 Eos # (Auto) 0.2 Baso # (Auto) 0.0 WBC Differential . Differential Comment Auto diff final PT 10.0 INR 1.0 Sodium Potassium Chloride Carbon Dioxide Anion Gap BUN Creatinine Estimated GFR POC Glucose 84 Random Glucose Calcium Phosphorus Magnesium Total Bilirubin Direct Bilirubin Indirect Bilirubin AST ALT Alkaline Phosphatase Total Protein Albumin Amylase Lipase TSH Free T4 04/15/18 06:41 WBC RBC Hgb Hct MCV MCH MCHC RDW Plt Count MPV Neut % (Auto) Lymph % (Auto) [place] % (Auto) Eos % (Auto) Baso % (Auto) Neut # (Auto) Lymph # (Auto) [place] # (Auto) Eos # (Auto) Baso # (Auto) WBC Differential Differential Comment PT INR Sodium 145 Potassium 3.8 Chloride 113 H Carbon Dioxide 23.2 Anion Gap 9 BUN 11 Creatinine 1.04 Estimated GFR 70 L POC Glucose Random Glucose 87 Calcium 7.9 L Phosphorus 2.1 L Magnesium 2.0 Total Bilirubin 0.9 Direct Bilirubin 0.4 H Indirect Bilirubin 0.5 AST 34 ALT 116 H Alkaline Phosphatase 287 H Total Protein 6.5 Albumin 3.0 L Amylase 72 Lipase 277 TSH 0.047 L Free T4 1.97 H Culture Results: Microbiology 04/12/18 18:30 Aerobic Blood Culture - Preliminary Blood - Peripheral No growth in 3 days Anaerobic Blood Culture - Preliminary No growth in 3 days 04/12/18 18:30 Aerobic Blood Culture - Preliminary Blood - Peripheral No growth in 3 days Anaerobic Blood Culture - Preliminary No growth in 3 days Medications: Active Medications Generic Name Dose Route Start Last Admin Trade Name Freq PRN Reason Stop Dose Admin Alprazolam 0.5 mg 04/13/18 21:00 04/14/18 21:05 Xanax PO 0.5 mg HS AMANDA Administration Piperacillin/Tazobactam/Dextrose 50 mls @ 100 mls/hr 04/13/18 04:00 04/15/18 10:15 Zosyn 3.375 Gm Premix IV.SIG 100 mls/hr Q6H AMANDA Administration Sodium Chloride 1,000 mls @ 150 mls/hr 04/13/18 16:30 04/15/18 04:17 Ns Inj IV.CONT 150 mls/hr .Q6H40M AMANDA Administration Levothyroxine Sodium 150 mcg 04/13/18 06:00 04/15/18 05:28 Synthroid PO 150 mcg DAILY@0600 AMANDA Administration Metoprolol Tartrate 25 mg 04/13/18 09:00 04/15/18 10:14 Lopressor PO 25 mg BID AMANDA Administration Pantoprazole Sodium 40 mg 04/13/18 09:00 04/15/18 10:14 Protonix PO 40 mg DAILY AMANDA Administration Senna/Docusate Sodium 1 tab 04/13/18 09:00 04/15/18 10:14 Yolanda-Colace PO 1 tab BID AMANDA Administration Objective Remarks: GENERAL: Elderly male, sitting up on bedside chair, appears to be no acute distress.. SKIN: Warm and dry. HEAD: Normocephalic. EYES: Conjunctivae are mildly pale, no scleral icterus. No injection or drainage. NECK: Supple, trachea midline. No JVD or lymphadenopathy. LYMPHATIC: No adenopathy. CARDIOVASCULAR: Regular rate and rhythm without murmurs. RESPIRATORY: Breath sounds equal bilaterally. No accessory muscle use. GASTROINTESTINAL: Protuberant abdomen, soft, non-tender, nondistended. EXTREMITIES: No cyanosis, or edema. MUSCULOSKELETAL: Adequate muscle tone. NEUROLOGICAL: No obvious focal deficit. Awake, alert, and oriented x3. PSYCHIATRIC: Appropriate mood and affect; insight and judgment normal. Assessment/Plan (1) Myelodysplastic syndrome Code(s): D46.9 - Myelodysplastic syndrome, unspecified Status: Acute - Plan Mr. 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 His lung carcinoma is in remission as evidenced by recent outpatient CT imaging of the thorax. From a hematologic standpoint he has an active diagnosis of myelodysplastic syndrome, he is on azacitidine (Vidaza) for management of cytopenias, with this treatment he is essentially transfusion dependent and has had stable hemoglobin and hematocrit levels without evidence of progression to acute myeloid leukemia. For the past several weeks he has had unexplained elevation in his LFTs as well as intermittent fevers associated with abdominal pain. He did undergo an outpatient CT scan which was initially reported as negative, retrospective review performed by a second radiologist last night indicates likely presence of an 8 mm stone in the common bile duct at that time. Patient was hospitalized earlier this week for workup of fevers, chills and abdominal pain. Imaging studies revealed findings consistent with a gallstone obstructing the distal common bile duct. Following day he underwent ERCP, a gallstone was recovered from the common bile duct. Sphincterotomy was performed at the same time. Since the procedure patient's LFTs have been normalizing, his total bilirubin level is now back to normal, alkaline phosphatase is trending down, AST and ALT are also trending towards normal. He is no longer febrile. Recommendations: 1. Myelodysplastic syndrome: With resultant worsening anemia secondary to recent acute issues relating to an obstructed bile duct. I would not recommend any specific therapeutic interventions at this time given his hemoglobin is greater than 8 g/dL. I do anticipate his counts to recover, he will resume systemic therapy with Wydase in the outpatient setting. 2. Abnormal LFTs: These were secondary to an obstructive gallstone in the common bile duct. LFTs are now returning to normal following ERCP and retrieval of a common bile duct stone. 3. I would advise patient be discharged home on antibiotic coverage, levofloxacin would be a reasonable option at the time of discharge. I would defer to GI if they have any additional or other recommendations which would be more suitable.
--- NOTE | 2018-04-15 11:42 | P.PNGI ---
Subjective Interval history: Pt is resting in bed ordering lunch. Pt is doing good, no abd pain, no nausea or vomiting. Going home today <Avery Mayorga - Last Filed: 04/15/18 11:43> Physical Exam Vital signs: Vital Signs 04/14/18 12:00 04/14/18 16:00 04/14/18 20:00 Temperature 97.7 F 97.9 F 98.0 F Pulse Rate 60 63 82 Respiratory Rate 18 17 16 Blood Pressure 137/63 109/58 L 128/62 Pulse Oximetry 97 98 99 04/14/18 23:41 Temperature 98.1 F Pulse Rate 69 Respiratory Rate 17 Blood Pressure 122/60 Pulse Oximetry 98 Intake & Output 04/14/18 04/15/18 04/15/18 18:59 06:59 18:59 Intake Total 2150 / 2150 1150 / 1150 Balance 2150 / 2150 1150 / 1150 Weight 105 kg Intake: IV 1050 / 1050 1150 / 1150 NS Inj 1,000 ML @ 150 mls/hr IV 1000 / 1000 1000 / 1000 .CONT .Q6H40M AMANDA Rx#:[id number] Zosyn 3.375 GM Premix 50 ML @ 50 / 50 150 / 150 100 mls/hr IV.SIG Q6H AMANDA Rx#: [id number] Oral 1100 / 1100 Other: # Voids 4 Date of Last Bowel Movement 04/12/18 04/14/18 04/15/18 # Bowel Movements 1 Narrative: GENERAL: Appears comfortable. SKIN: Warm and dry. HEAD: Normocephalic. EYES: No scleral icterus. No injection or drainage. CARDIOVASCULAR: Regular rate and rhythm without murmurs, gallops, or rubs. RESPIRATORY: Breath sounds equal bilaterally. No accessory muscle use. GASTROINTESTINAL: Abdomen soft, non-tender, nondistended. MUSCULOSKELETAL: No cyanosis, or edema. Neuro: Alert and oriented <Avery Mayorga - Last Filed: 04/15/18 11:43> Vital signs: Vital Signs 04/14/18 20:00 04/14/18 23:41 04/15/18 08:00 Temperature 98.0 F 98.1 F 97.7 F Pulse Rate 82 69 73 Respiratory Rate 16 17 16 Blood Pressure 128/62 122/60 112/56 L Pulse Oximetry 99 98 96 04/15/18 12:00 Temperature 97.8 F Pulse Rate 71 Respiratory Rate 18 Blood Pressure 137/69 Pulse Oximetry 97 Intake & Output 04/14/18 04/15/18 04/15/18 18:59 06:59 18:59 Intake Total 2150 / 2150 1150 / 1150 Balance 2150 / 2150 1150 / 1150 Weight 105 kg Intake: IV 1050 / 1050 1150 / 1150 NS Inj 1,000 ML @ 150 mls/hr IV 1000 / 1000 1000 / 1000 .CONT .Q6H40M AMANDA Rx#:[id number] Zosyn 3.375 GM Premix 50 ML @ 50 / 50 150 / 150 100 mls/hr IV.SIG Q6H AMANDA Rx#: [id number] Oral 1100 / 1100 Other: # Voids 4 Date of Last Bowel Movement 04/12/18 04/14/18 04/15/18 # Bowel Movements 1 <Jose Gupta E - Last Filed: 04/15/18 16:57> Results - Labs CBC & Chem 7: 04/15/18 06:41 04/15/18 06:41 Laboratory Results - last 24 hr 04/14/18 04/15/18 04/15/18 17:24 06:41 06:41 WBC 4.0 RBC 2.41 L Hgb 8.4 L Hct 25.1 L MCV 104.0 H MCH 34.8 H MCHC 33.5 RDW 20.0 H Plt Count 426 MPV 7.7 Neut % (Auto) 69.7 Lymph % (Auto) 20.2 [place] % (Auto) 4.1 Eos % (Auto) 5.3 H Baso % (Auto) 0.7 Neut # (Auto) 2.8 Lymph # (Auto) 0.8 L [place] # (Auto) 0.2 Eos # (Auto) 0.2 Baso # (Auto) 0.0 WBC Differential . Differential Comment Auto diff final PT 10.0 INR 1.0 Sodium Potassium Chloride Carbon Dioxide Anion Gap BUN Creatinine Estimated GFR POC Glucose 84 Random Glucose Calcium Phosphorus Magnesium Total Bilirubin Direct Bilirubin Indirect Bilirubin AST ALT Alkaline Phosphatase Total Protein Albumin Amylase Lipase TSH Free T4 04/15/18 06:41 WBC RBC Hgb Hct MCV MCH MCHC RDW Plt Count MPV Neut % (Auto) Lymph % (Auto) [place] % (Auto) Eos % (Auto) Baso % (Auto) Neut # (Auto) Lymph # (Auto) [place] # (Auto) Eos # (Auto) Baso # (Auto) WBC Differential Differential Comment PT INR Sodium 145 Potassium 3.8 Chloride 113 H Carbon Dioxide 23.2 Anion Gap 9 BUN 11 Creatinine 1.04 Estimated GFR 70 L POC Glucose Random Glucose 87 Calcium 7.9 L Phosphorus 2.1 L Magnesium 2.0 Total Bilirubin 0.9 Direct Bilirubin 0.4 H Indirect Bilirubin 0.5 AST 34 ALT 116 H Alkaline Phosphatase 287 H Total Protein 6.5 Albumin 3.0 L Amylase 72 Lipase 277 TSH 0.047 L Free T4 1.97 H Microbiology 04/12/18 18:30 Blood - Peripheral Aerobic Blood Culture - Preliminary No growth in 3 days 04/12/18 18:30 Blood - Peripheral Anaerobic Blood Culture - Preliminary No growth in 3 days 04/12/18 18:30 Blood - Peripheral Aerobic Blood Culture - Preliminary No growth in 3 days 04/12/18 18:30 Blood - Peripheral Anaerobic Blood Culture - Preliminary No growth in 3 days - Procedures Date of procedure: 04/13/18 Pre-op diagnosis: Elevated liver function tests, choledocholithiasis Procedure: PROCEDURE PERFORMED ERCP with sphincterotomy and balloon extraction PROCEDURE: The procedure, risks and benefits were discussed with Patient/POA and informed consent was obtained. Anesthesia sedated Patient with Diprivan patient was intubated. Patient was placed in the prone position. ERCP: Patient was placed in a prone position. The Pentax videoscope was introduced through the oropharynx and advanced to the second portion of the duodenum where the ampula was identified. FINDINGS: The ampulla was unremarkable and within normal limits initially we obtained cannulation of the pancreatic duct a small amount of contrast was injected and this appeared to be unremarkable multiple attempts were made to cannulate the common bile duct and they were unsuccessful and so a needle knife sphincterotomy was performed thereafter we were able to obtain cannulation of the common bile duct which appeared to be dilated with a filling defect a sphincterotomy was performed and balloon extraction removed a small stone and thereafter the procedure was terminated ESTIMATED BLOOD LOSS: None SPECIMENS REMOVED: None COMPLICATIONS: None IMPRESSION: Choledocholithiasis PLAN: Supportive care Monitor labs Indomethacin 100 mg suppository Aggressive hydration Anesthesia: GETA Surgeon: Jose Gupta Condition: stable Disposition: floor Documented By: Jose Gupta MD <Avery Mayorga Last Filed: 04/15/18 11:43> - Labs CBC & Chem 7: 04/15/18 06:41 04/15/18 06:41 Laboratory Results - last 24 hr 04/14/18 04/15/18 04/15/18 17:24 06:41 06:41 WBC 4.0 RBC 2.41 L Hgb 8.4 L Hct 25.1 L MCV 104.0 H MCH 34.8 H MCHC 33.5 RDW 20.0 H Plt Count 426 MPV 7.7 Neut % (Auto) 69.7 Lymph % (Auto) 20.2 [place] % (Auto) 4.1 Eos % (Auto) 5.3 H Baso % (Auto) 0.7 Neut # (Auto) 2.8 Lymph # (Auto) 0.8 L [place] # (Auto) 0.2 Eos # (Auto) 0.2 Baso # (Auto) 0.0 WBC Differential . Differential Comment Auto diff final PT 10.0 INR 1.0 Sodium Potassium Chloride Carbon Dioxide Anion Gap BUN Creatinine Estimated GFR POC Glucose 84 Random Glucose Calcium Phosphorus Magnesium Total Bilirubin Direct Bilirubin Indirect Bilirubin AST ALT Alkaline Phosphatase Total Protein Albumin Amylase Lipase TSH Free T4 04/15/18 06:41 WBC RBC Hgb Hct MCV MCH MCHC RDW Plt Count MPV Neut % (Auto) Lymph % (Auto) [place] % (Auto) Eos % (Auto) Baso % (Auto) Neut # (Auto) Lymph # (Auto) [place] # (Auto) Eos # (Auto) Baso # (Auto) WBC Differential Differential Comment PT INR Sodium 145 Potassium 3.8 Chloride 113 H Carbon Dioxide 23.2 Anion Gap 9 BUN 11 Creatinine 1.04 Estimated GFR 70 L POC Glucose Random Glucose 87 Calcium 7.9 L Phosphorus 2.1 L Magnesium 2.0 Total Bilirubin 0.9 Direct Bilirubin 0.4 H Indirect Bilirubin 0.5 AST 34 ALT 116 H Alkaline Phosphatase 287 H Total Protein 6.5 Albumin 3.0 L Amylase 72 Lipase 277 TSH 0.047 L Free T4 1.97 H Microbiology 04/12/18 18:30 Blood - Peripheral Aerobic Blood Culture - Preliminary No growth in 3 days 04/12/18 18:30 Blood - Peripheral Anaerobic Blood Culture - Preliminary No growth in 3 days 04/12/18 18:30 Blood - Peripheral Aerobic Blood Culture - Preliminary No growth in 3 days 04/12/18 18:30 Blood - Peripheral Anaerobic Blood Culture - Preliminary No growth in 3 days <Jose Gupta - Last Filed: 04/15/18 16:57> Assessment and Plan - Plan -Choledocholithiasis- S/P ERCP with sphincterotomy and balloon extraction on 04/13/18 Pt is doing good, LFTs trending down. 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 Gupta and myself and this note is written on his behalf. <Avery Mayorga - Last Filed: 04/15/18 11:43> - Plan Patient seen and examined Agree with above Continue with current supportive care Monitor labs <Jose Gupta - Last Filed: 04/15/18 16:57>
--- NOTE | 2018-04-15 12:35 | P.DS ---
Date of admission: 04/12/18 21:57 Primary care physician: Kavin Gonzalez MD Brief History from admission: 73-year-old male with a past medical history significant for history of lung cancer, myelodysplastic syndrome on chemotherapy, COPD, Diane's esophagus and hyperlipidemia presents to the emergency department for evaluation of a fever. The patient reports his fever at home was 102. T-max in the emergency department was 100.6. He called his oncologist, Dr. Weeks, who recommended further evaluation in the emergency department. The patient complained of a 1 day history of right upper quadrant abdominal pain. He denies any nausea or vomiting. No diarrhea. No chest pain or shortness of breath. No lateralizing signs/symptoms. Gallbladder ultrasound significant for distal duct stone. Patient update on day of discharge: Patient is doing well. No fever, chills. Ambulating well. at bedside. DS: Medications - Discharge Medications Prescriptions: levofloxacin [Levaquin] 750 mg PO DAILY #7 tab metronidazole [Flagyl] 500 mg PO TID #21 tab DS: Summary Hospital Course: 73-year-old male with a past medical history significant for history of lung cancer, myelodysplastic syndrome on chemotherapy, COPD, Diane's esophagus and hyperlipidemia presents to the emergency department for evaluation of a fever. The patient reports his fever at home was 102. Patient was diagnosed with choledocholithiasis. He underwent ERCP with sphincterectomy and balloon extraction on 04/13/2018. Gastroenterology recommended outpatient follow-up with general surgery for elective cholecystectomy. Patient was given Zosyn during this hospitalization. Patient continued to do well. He was cleared for discharge from GI as well as oncology service. Patient was subsequently discharged home on Levaquin as well as Flagyl for 7 days. - Time Spent with Patient Total time spent providing and/or coordinating discharge services: Less than 30 minutes - Quality: VTE Deep Vein Thrombosis/Pulmonary Embolism Present on Admission: No Exam Vital signs: Vital Signs 04/14/18 16:00 04/14/18 20:00 04/14/18 23:41 Temperature 97.9 F 98.0 F 98.1 F Pulse Rate 63 82 69 Respiratory Rate 17 16 17 Blood Pressure 109/58 L 128/62 122/60 Pulse Oximetry 98 99 98 Intake & Output 04/14/18 04/15/18 04/15/18 18:59 06:59 18:59 Intake Total 2150 / 2150 1150 / 1150 Balance 2150 / 2150 1150 / 1150 Weight 105 kg Intake: IV 1050 / 1050 1150 / 1150 NS Inj 1,000 ML @ 150 mls/hr IV 1000 / 1000 1000 / 1000 .CONT .Q6H40M AMANDA Rx#:[id number] Zosyn 3.375 GM Premix 50 ML @ 50 / 50 150 / 150 100 mls/hr IV.SIG Q6H AMANDA Rx#: [id number] Oral 1100 / 1100 Other: # Voids 4 Date of Last Bowel Movement 04/12/18 04/14/18 04/15/18 # Bowel Movements 1 Narrative: GENERAL: Alert, Oriented x 3, NAD. SKIN: Warm and dry. HEAD: Normocephalic. EYES: No scleral icterus. No injection or drainage. NECK: Supple, trachea midline. No JVD or lymphadenopathy. CARDIOVASCULAR: Regular rate and rhythm without murmurs, gallops, or rubs. RESPIRATORY: Breath sounds equal bilaterally. No accessory muscle use. GASTROINTESTINAL: Abdomen soft, non-tender, nondistended. MUSCULOSKELETAL: No cyanosis, or edema. BACK: Nontender without obvious deformity. No CVA tenderness. Results Procedures completed during hospitalization: Date of procedure: 04/13/18 Pre-op diagnosis: Elevated liver function tests, choledocholithiasis Procedure: PROCEDURE PERFORMED ERCP with sphincterotomy and balloon extraction PROCEDURE: The procedure, risks and benefits were discussed with Patient/POA and informed consent was obtained. Anesthesia sedated Patient with Diprivan patient was intubated. Patient was placed in the prone position. ERCP: Patient was placed in a prone position. The Pentax videoscope was introduced through the oropharynx and advanced to the second portion of the duodenum where the ampula was identified. FINDINGS: The ampulla was unremarkable and within normal limits initially we obtained cannulation of the pancreatic duct a small amount of contrast was injected and this appeared to be unremarkable multiple attempts were made to cannulate the common bile duct and they were unsuccessful and so a needle knife sphincterotomy was performed thereafter we were able to obtain cannulation of the common bile duct which appeared to be dilated with a filling defect a sphincterotomy was performed and balloon extraction removed a small stone and thereafter the procedure was terminated ESTIMATED BLOOD LOSS: None SPECIMENS REMOVED: None COMPLICATIONS: None IMPRESSION: Choledocholithiasis PLAN: Supportive care Monitor labs Indomethacin 100 mg suppository Aggressive hydration Anesthesia: GETA Surgeon: Jose Gupta Condition: stable Disposition: floor Documented By: Jose Gupta MD Labs on day of discharge: Labs from last 24 hours 04/15/18 04/15/18 04/15/18 06:41 06:41 06:41 WBC RBC Hgb Hct MCV MCH MCHC RDW Plt Count MPV Neut % (Auto) Lymph % (Auto) [place] % (Auto) Eos % (Auto) Baso % (Auto) Neut # (Auto) Lymph # (Auto) [place] # (Auto) Eos # (Auto) Baso # (Auto) WBC Differential Differential Comment PT 10.0 INR 1.0 Sodium 145 Potassium 3.8 Chloride 113 H Carbon Dioxide 23.2 Anion Gap 9 BUN 11 Creatinine 1.04 Estimated GFR 70 L POC Glucose Random Glucose 87 Hemoglobin A1c Pending Calcium 7.9 L Phosphorus 2.1 L Magnesium 2.0 Total Bilirubin 0.9 Direct Bilirubin 0.4 H Indirect Bilirubin 0.5 AST 34 ALT 116 H Alkaline Phosphatase 287 H Total Protein 6.5 Albumin 3.0 L Amylase 72 Lipase 277 TSH 0.047 L Free T4 1.97 H 04/15/18 04/14/18 06:41 17:24 WBC 4.0 RBC 2.41 L Hgb 8.4 L Hct 25.1 L MCV 104.0 H MCH 34.8 H MCHC 33.5 RDW 20.0 H Plt Count 426 MPV 7.7 Neut % (Auto) 69.7 Lymph % (Auto) 20.2 [place] % (Auto) 4.1 Eos % (Auto) 5.3 H Baso % (Auto) 0.7 Neut # (Auto) 2.8 Lymph # (Auto) 0.8 L [place] # (Auto) 0.2 Eos # (Auto) 0.2 Baso # (Auto) 0.0 WBC Differential . Differential Comment Auto diff final PT INR Sodium Potassium Chloride Carbon Dioxide Anion Gap BUN Creatinine Estimated GFR POC Glucose 84 Random Glucose Hemoglobin A1c Calcium Phosphorus Magnesium Total Bilirubin Direct Bilirubin Indirect Bilirubin AST ALT Alkaline Phosphatase Total Protein Albumin Amylase Lipase TSH Free T4 Preliminary micro results at discharge 04/12/18 18:30 Aerobic Blood Culture - Preliminary Blood - Peripheral No growth in 3 days Anaerobic Blood Culture - Preliminary No growth in 3 days 04/12/18 18:30 Aerobic Blood Culture - Preliminary Blood - Peripheral No growth in 3 days Anaerobic Blood Culture - Preliminary No growth in 3 days - Impressions ITS Impressions Chest X-Ray 04/12/18 18:38 CONCLUSION: No acute cardiopulmonary disease. Right basilar scarring again noted. Gallbladder Ultrasound 04/12/18 20:10 CONCLUSION: 1. Distended gallbladder and the intrahepatic as well as extrahepatic biliary tree. Distal duct not well visualized by ultrasound; retrospective review of recent CT shows findings concerning for a distal duct stone, series 3 image 34. The stone is probably around 8 mm in size. No evidence of cholecystitis. 2. Nonspecific hepatomegaly. 3. Small, but benign-appearing right renal cyst. Discharge Plan - Discharge Disposition Patient Disposition: Discharge Home - Discharge Condition Condition: Good - Discharge Order Discharge Orders: Discharge Order (Routine); Ordered 04/15/18 Ordered By: Reddy Martin - Discharge Details Anticipated Discharge Date: 04/15/18 - Physicians Team Primary Care Provider: Kavin Gonzalez Attending Provider: Reddy Martin Other Providers: Jose Gupta MD ; Davis Weeks MD
[2018-04-15 12:52] VITALS: BP 137/69; PULSE 71; RESP 18; TEMP 97.8; O2SAT 97
[2018-04-15 18:15] LABS: Hemoglobin A1c 5.4 % (4.3-6.0)
== END 2018-04-15 14:14 | disposition home or self-care (01) ==
LOC: NEPC 17:46 → NEDA 21:57 → N06 04-13 00:01
PROVIDERS: ADMIT Hospitalist; ATTEND Hospitalist

== ENCOUNTER 2018-04-17 08:39 | Observation (INO) ==
[2018-04-17 09:39] LABS: Baso % (Auto) 1.3 % (0.0-2.0); Eos # (Auto) 0.2 th/mm3 (0.0-0.4); Hemoglobin 9.2 gm/dL (13.0-17.0); Lymph # (Auto) 0.7 th/mm3 (1.0-4.8); Lymph % (Auto) 23.9 % (9.0-44.0); Mean Corpuscular HGB Conc 34.1 % (32.0-36.0); Mean Corpuscular Hemoglobin 34.7 pg (27.0-34.0); Mean Corpuscular Volume 101.8 fL (80.0-100.0); Mean Platelet Volume 7.9 fL (7.0-11.0); Mono # (Auto) 0.1 th/mm3 (0.0-0.9); Mono % (Auto) 4.5 % (0.0-8.0); Neut # (Auto) 2.1 th/mm3 (1.8-7.7); Neut % (Auto) 65.3 % (16.0-70.0); Platelet Count 443 th/mm3 (150-450); Red Blood Count 2.66 mil/mm3 (4.50-5.90); Red Cell Distribution Width 20.1 % (11.6-17.2); White Blood Count 3.1 th/mm3 (4.0-11.0)
[2018-04-17 09:52] LABS: Calcium 9.2 mg/dL (8.5-10.1)
[2018-04-17 09:53] LABS: Carbon Dioxide 22.3 meq/L (21.0-32.0)
[2018-04-17 09:54] LABS: Albumin 3.4 g/dL (3.4-5.0); Glucose,Random 103 mg/dL (74-106)
[2018-04-17 09:55] LABS: Anion Gap 12 meq/L (5-15); Chloride 108 meq/L (98-107); Sodium 142 meq/L (136-145)
[2018-04-17 09:57] LABS: Alanine Aminotransferase 87 U/L (12-78); Aspartate Aminotransferase 29 U/L (15-37); Blood Urea Nitrogen 22 mg/dL (7-18); Glomerular Filtration Rate 54 mL/min (>89); Total Protein 6.8 g/dL (6.4-8.2)
[2018-04-17 09:58] LABS: Alkaline Phosphatase 246 U/L (45-117)
--- NOTE | 2018-04-17 10:04 | ED ---
HPI General Chief complaint: Dizziness Stated complaint: Dizzy x last night Time Seen by Provider: 04/17/18 09:59 Source: patient Mode of arrival: ambulatory Limitations: no limitations History of Present Illness HPI narrative: Patient woke up at 4 AM and had dizziness going to and back from the bathroom. Patient had significant diaphoresis prior to presentation here in the emergency department patient states he did not have chest pain pressure or indigestion. No shortness of breath. Had recent stress test 1 month ago. Patient has a history of recurrent atrial fibrillation but is not on blood thinners. Patient has no complaints or discomfort at the present time. No evidence of diaphoresis or weakness when resting. Related Data Home Medications Medication Instructions Recorded Confirmed albuterol sulfate [ProAir HFA] 1 puff INHALATION Q6H PRN 04/12/18 04/17/18 alprazolam 0.5 mg PO DAILY 04/12/18 04/17/18 aspirin 81 mg PO DAILY 04/12/18 04/17/18 fenofibrate micronized 134 mg PO DAILY 04/12/18 04/17/18 latanoprost 1 drp OPHTHALMIC (EYE) QPM 04/12/18 04/17/18 levothyroxine [Synthroid] 150 mcg PO DAILY 04/12/18 04/17/18 magnesium 500 mg PO DAILY 04/12/18 04/17/18 omeprazole 40 mg PO BID 04/12/18 04/17/18 metoprolol tartrate 25 mg PO BID 04/13/18 04/17/18 potassium 99 mg PO DAILY 04/17/18 04/17/18 Previous Rx's Medication Instructions Recorded levofloxacin [Levaquin] 750 mg PO DAILY #7 tab 04/15/18 metronidazole [Flagyl] 500 mg PO TID #21 tab 04/15/18 Allergies Allergy/AdvReac Type Severity Reaction Status Date / Time No Known Allergies Allergy Verified 04/17/18 08:56 Review of Systems ROS: all other systems reviewed are negative [facility] Medical History Medical History 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 (Acute) Anxiety (Acute) Barretts esophagus (Acute) COPD (chronic obstructive pulmonary disease) (Acute) Chronic kidney disease (Acute) GERD (gastroesophageal reflux disease) (Acute) Glaucoma (Acute) HBP (high blood pressure) (Acute) Hereditary hemochromatosis (Acute) Hyperlipidemia (Acute) Hypothyroidism (Acute) Lung cancer (Acute) Myelodysplastic syndrome (Acute) Obesity (Acute) Pilonidal cyst with abscess (Acute) Salmonella enteritis (Acute) Surgical History Surgical History History of ERCP (Acute) History of lobectomy of lung (Acute) History of bone marrow biopsy (Acute) History of esophagogastroduodenoscopy (EGD) (Acute) History of lung biopsy (Acute) History of lung surgery (Acute) Family History Family History Other Coronary artery disease Diabetes mellitus Social History Social History Substance History: No History of Abuse Second Hand Smoke Exposure: No Smoking Status: Former smoker Tobacco Type: Cigarettes How Often Do You Have a Drink Containing Alcohol: Never Recent Travel in [facility] within the Last 8 Weeks: No Recent Out of Country Travel within the Last 8 Weeks: No Immunization History Tetanus Immunization: >5 Years Exam Narrative Exam Narrative: GENERAL: Alert and oriented and in no acute distress. SKIN: Focused skin assessment warm/dry. HEAD: Atraumatic. Normocephalic. EYES: Pupils equal and round. No scleral icterus. No injection or drainage. ENT: No nasal bleeding or discharge. Mucous membranes pink and moist. NECK: Trachea midline. Moderate JVD with HJ reflux CARDIOVASCULAR: Irregular rhythm 90/min. No murmur appreciated. 3 mm pretibial edema bilaterally RESPIRATORY: No accessory muscle use. Clear to auscultation. Breath sounds equal bilaterally. GASTROINTESTINAL: Abdomen soft, non-tender, nondistended. Hepatic and splenic margins not palpable. MUSCULOSKELETAL: No obvious deformities. No clubbing. No cyanosis. No edema. NEUROLOGICAL: Awake and alert. No obvious cranial nerve deficits. Motor grossly within normal limits. Normal speech. PSYCHIATRIC: Appropriate mood and affect; insight and judgment normal. Course Initial Documented Vital Signs Temperature 97.9 F 04/17/18 08:42 Pulse Rate 85 04/17/18 08:42 Respiratory Rate 20 04/17/18 08:42 Blood Pressure 111/59 L 04/17/18 08:42 Pulse Oximetry 99 04/17/18 08:42 Last Documented Vital Signs Temperature 96.4 F L 04/18/18 04:00 Pulse Rate 62 04/18/18 04:00 Respiratory Rate 18 04/18/18 04:00 Blood Pressure 149/67 H 04/18/18 04:00 Pulse Oximetry 99 04/18/18 04:00 Critical Care Time Critical Care Time: No NIH Stroke Scale NIH Stroke Scale Level of Consciousness: 0-Alert Orientation Questions: 0-Answers both correct Responds to Commands: 0-Both tasks correct Gaze Eye Movement: 0-Horizontal movement WNL Visual Florentino: 0-No visual field defect Facial Movement: 0-Normal Motor Functions Arm LEFT: 0-No drift Motor Functions Arm RIGHT: 0-No drift Motor Functions Leg LEFT: 0-No drift Motor Functions Leg RIGHT: 0-No drift Limb Ataxia: 0-No ataxia Sensory Loss: 0-No sensory loss Best Language: 0-Normal Articulation: 0-Normal Extinction or Inattention Sensory: 0-Absent Total: 0 Medical Decision Making MDM Narrative Medical decision making narrative: Discussed case with , neurology. Patient has history consistent with TIA and needs to be admitted with MRI and Lovenox. Medical Screen Exam Complete: Yes Emergency Medical Condition: Yes Differential Diagnosis Differential Diagnosis: CVA, TIA, electric or cardiac anomaly, anemia Lab Data Result diagrams: 04/17/18 09:10 04/17/18 09:10 Lab Results 04/17/18 04/17/18 04/17/18 Range/Units 09:10 09:10 09:10 CBC w Diff Auto diff final WBC 3.1 L (4.0-11.0) th/mm3 RBC 2.66 L (4.50-5.90) mil/mm3 Hgb 9.2 L (13.0-17.0) gm/dL Hct 27.0 L (39.0-51.0) % MCV 101.8 H (80.0-100.0) fL MCH 34.7 H (27.0-34.0) pg MCHC 34.1 (32.0-36.0) % RDW 20.1 H (11.6-17.2) % Plt Count 443 (150-450) th/mm3 MPV 7.9 (7.0-11.0) fL Neut % (Auto) 65.3 (16.0-70.0) % Lymph % (Auto) 23.9 (9.0-44.0) % [place] % (Auto) 4.5 (0.0-8.0) % Eos % (Auto) 5.0 H (0.0-4.0) % Baso % (Auto) 1.3 (0.0-2.0) % Neut # (Auto) 2.1 (1.8-7.7) th/mm3 Lymph # (Auto) 0.7 L (1.0-4.8) th/mm3 [place] # (Auto) 0.1 (0.0-0.9) th/mm3 Eos # (Auto) 0.2 (0.0-0.4) th/mm3 Baso # (Auto) 0.0 (0.0-0.2) th/mm3 WBC Differential . Differential Comment . PT 10.7 (9.8-11.6) sec INR 1.1 Ratio Sodium 142 (136-145) meq/L Potassium 4.0 (3.5-5.1) meq/L Chloride 108 H (98-107) meq/L Carbon Dioxide 22.3 (21.0-32.0) meq/L Anion Gap 12 (5-15) meq/L BUN 22 H (7-18) mg/dL Creatinine 1.30 (0.60-1.30) mg/dL Estimated GFR 54 L (>89) mL/min POC Glucose (68-110) mg/dl Random Glucose 103 (74-106) mg/dL Calcium 9.2 (8.5-10.1) mg/dL Total Bilirubin 0.9 (0.2-1.0) mg/dL AST 29 (15-37) U/L ALT 87 H (12-78) U/L Alkaline Phosphatase 246 H (45-117) U/L Total Creatine Kinase (39-308) U/L Troponin I (0.02-0.05) ng/mL Total Protein 6.8 (6.4-8.2) g/dL Albumin 3.4 (3.4-5.0) g/dL Urine Color (Yellw/Straw) Urine Clarity (Clear) Urine pH (5.0-8.5) Ur Specific Jachin (1.002-1.035) Urine Protein (Neg-Trace) mg/dL Urine Glucose (UA) (Negative) mg/dL Urine Ketones (Negative) mg/dL Urine Occult Blood (Negative) Urine Nitrate (Negative) Urine Bilirubin (Negative) Urine Urobilinogen (Less than 2) mg/dL Ur Leukocyte Esterase (Negative) Ur Squamous Epith Cells (0-5) /hpf Hyaline Casts (0-3) /lpf Micro UA Comment Ur Microscopic Review Urine Culture Comments 04/17/18 04/17/18 04/17/18 Range/Units 10:20 15:21 15:37 CBC w Diff WBC (4.0-11.0) th/mm3 RBC (4.50-5.90) mil/mm3 Hgb (13.0-17.0) gm/dL Hct (39.0-51.0) % MCV (80.0-100.0) fL MCH (27.0-34.0) pg MCHC (32.0-36.0) % RDW (11.6-17.2) % Plt Count (150-450) th/mm3 MPV (7.0-11.0) fL Neut % (Auto) (16.0-70.0) % Lymph % (Auto) (9.0-44.0) % [place] % (Auto) (0.0-8.0) % Eos % (Auto) (0.0-4.0) % Baso % (Auto) (0.0-2.0) % Neut # (Auto) (1.8-7.7) th/mm3 Lymph # (Auto) (1.0-4.8) th/mm3 [place] # (Auto) (0.0-0.9) th/mm3 Eos # (Auto) (0.0-0.4) th/mm3 Baso # (Auto) (0.0-0.2) th/mm3 WBC Differential Differential Comment PT (9.8-11.6) sec INR Ratio Sodium (136-145) meq/L Potassium (3.5-5.1) meq/L Chloride (98-107) meq/L Carbon Dioxide (21.0-32.0) meq/L Anion Gap (5-15) meq/L BUN (7-18) mg/dL Creatinine (0.60-1.30) mg/dL Estimated GFR (>89) mL/min POC Glucose 95 (68-110) mg/dl Random Glucose (74-106) mg/dL Calcium (8.5-10.1) mg/dL Total Bilirubin (0.2-1.0) mg/dL AST (15-37) U/L ALT (12-78) U/L Alkaline Phosphatase (45-117) U/L Total Creatine Kinase 58 (39-308) U/L Troponin I Less than 0.02 L (0.02-0.05) ng/mL Total Protein (6.4-8.2) g/dL Albumin (3.4-5.0) g/dL Urine Color Yellow (Yellw/Straw) Urine Clarity Clear (Clear) Urine pH 7.0 (5.0-8.5) Ur Specific Jachin 1.015 (1.002-1.035) Urine Protein 30 H (Neg-Trace) mg/dL Urine Glucose (UA) Negative (Negative) mg/dL Urine Ketones Negative (Negative) mg/dL Urine Occult Blood Negative (Negative) Urine Nitrate Negative (Negative) Urine Bilirubin Negative (Negative) Urine Urobilinogen 0.2 (Less than 2) mg/dL Ur Leukocyte Esterase Negative (Negative) Ur Squamous Epith Cells 0-5 (0-5) /hpf Hyaline Casts 0-3 (0-3) /lpf Micro UA Comment Culture not ind Ur Microscopic Review Microscopic reviewed Urine Culture Comments Culture not ind 04/17/18 04/18/18 Range/Units 22:02 07:24 CBC w Diff WBC (4.0-11.0) th/mm3 RBC (4.50-5.90) mil/mm3 Hgb (13.0-17.0) gm/dL Hct (39.0-51.0) % MCV (80.0-100.0) fL MCH (27.0-34.0) pg MCHC (32.0-36.0) % RDW (11.6-17.2) % Plt Count (150-450) th/mm3 MPV (7.0-11.0) fL Neut % (Auto) (16.0-70.0) % Lymph % (Auto) (9.0-44.0) % [place] % (Auto) (0.0-8.0) % Eos % (Auto) (0.0-4.0) % Baso % (Auto) (0.0-2.0) % Neut # (Auto) (1.8-7.7) th/mm3 Lymph # (Auto) (1.0-4.8) th/mm3 [place] # (Auto) (0.0-0.9) th/mm3 Eos # (Auto) (0.0-0.4) th/mm3 Baso # (Auto) (0.0-0.2) th/mm3 WBC Differential Differential Comment PT (9.8-11.6) sec INR Ratio Sodium (136-145) meq/L Potassium (3.5-5.1) meq/L Chloride (98-107) meq/L Carbon Dioxide (21.0-32.0) meq/L Anion Gap (5-15) meq/L BUN (7-18) mg/dL Creatinine (0.60-1.30) mg/dL Estimated GFR (>89) mL/min POC Glucose 97 103 (68-110) mg/dl Random Glucose (74-106) mg/dL Calcium (8.5-10.1) mg/dL Total Bilirubin (0.2-1.0) mg/dL AST (15-37) U/L ALT (12-78) U/L Alkaline Phosphatase (45-117) U/L Total Creatine Kinase (39-308) U/L Troponin I (0.02-0.05) ng/mL Total Protein (6.4-8.2) g/dL Albumin (3.4-5.0) g/dL Urine Color (Yellw/Straw) Urine Clarity (Clear) Urine pH (5.0-8.5) Ur Specific [place] (1.002-1.035) Urine Protein (Neg-Trace) mg/dL Urine Glucose (UA) (Negative) mg/dL Urine Ketones (Negative) mg/dL Urine Occult Blood (Negative) Urine Nitrate (Negative) Urine Bilirubin (Negative) Urine Urobilinogen (Less than 2) mg/dL Ur Leukocyte Esterase (Negative) Ur Squamous Epith Cells (0-5) /hpf Hyaline Casts (0-3) /lpf Micro UA Comment Ur Microscopic Review Urine Culture Comments Imaging Data Radiologist's impression: Head/Brain Mag Res Venography 04/17/18 00:00 CONCLUSION: 1. Grossly unremarkable MRV. Chest X-Ray 04/17/18 10:04 CONCLUSION: Chronic scarring in the right lung. An acute abnormality is not seen. Head CTA 04/17/18 10:06 CONCLUSION: 1. Negative CTA. The arterial structures appear normal. 2. Small focal area of nonocclusive thrombus in the anterior aspect of the straight sinus. Neck CTA 04/17/18 10:06 CONCLUSION: Calcifications at the carotid bulb regions without a significant stenosis seen throughout. Head CT 04/17/18 10:31 CONCLUSION: 1. No acute intracranial abnormality is seen. 2. Mild atrophy. . Head MRI 04/17/18 15:06 CONCLUSION: 1. No acute hemorrhage, infarction or mass effect. 2. Atrophy and chronic small vessel ischemic changes. Discharge Plan Discharge Disposition Patient Disposition: 30 Still Patient Physicians Team ED Provider: Aravind Flores Primary Care Provider: Kavin Gonzalez Attending Provider: Heriberto Hicks Other Providers: Kady Barajas ; Hetal Smith ; Yohannes Del Cid Discharge Interventions Interventions: ED Discharge Assessment Last Done: 04/17/18 14:21 Vital Signs Last Done: 04/17/18 11:12 Status ED Status: Left Department Discharge Information Discharge Date/Time: 04/17/18 14:15
[2018-04-17 10:21] LABS: INR 1.1 Ratio; Prothrombin Time 10.7 sec (9.8-11.6)
[2018-04-17 10:31] LABS: Bilirubin,Urine Negative (Negative); Clarity,Urine Clear (Clear); Color,Urine Yellow (Yellw/Straw); Glucose,Urine (UA) Negative (Negative); Leukocyte Esterase,Urine Negative (Negative); Nitrite,Urine Negative (Negative); Specific Gravity,Urine 1.015 (1.002-1.035); Urobilinogen,Urine 0.2 mg/dL (Less than 2)
[2018-04-17 10:37] LABS: Hyaline Casts,Urine 0-3 /lpf (0-3); Squamous Epithelial Cell,Urine 0-5 /hpf (0-5)
--- NOTE | 2018-04-17 10:48 | CT ---
EXAM DATE: 04/17/2018 10:34 AM EDT AGE/SEX: 73 years / Male INDICATIONS: Dizzy 1 Day CLINICAL DATA: This is the patient's initial encounter. Patient reports that signs and symptoms have been present for 1 day and indicates a pain score of 0/10. MEDICAL/SURGICAL HISTORY: Renal failure, chronic. Chronic obstructive pulmonary disease. Gastroes ophageal reflux disease. Atrial fib,Lung cancer, hypothyroid, Barrets esophagus Lobectomy. Bone Mar row Biopsy RADIATION DOSE: 55.28 CTDI (mGy) COMPARISON: . TECHNIQUE: CT of the head without contrast. Using automated exposure control and adjustment of the mA and/or kV according to patient size, radiation dose was kept as low as reasonably achievable to ob tain optimal diagnostic quality images. DICOM format image data is available electronically for revi ew and comparison. FINDINGS: Cerebrum: The ventricles and cortical sulci are mildly dilated. No evidence of midline shift, mass lesion, hemorrhage or acute infarction. No extraaxial fluid collections are seen. Posterior Fossa: The cerebellum and brainstem are intact. The 4th ventricle is midline. The cerebe llopontine angle is unremarkable. Extracranial: The visualized portion of the orbits is intact. Skull: The calvaria is intact. No evidence of skull fracture. CONCLUSION: 1. No acute intracranial abnormality is seen. 2. Mild atrophy. . Electronically signed by: Angel Yanez MD 04/17/2018 10:47 AM EDT
--- NOTE | 2018-04-17 11:09 | CT ---
EXAM DATE: 04/17/2018 10:10 AM EDT AGE/SEX: 73 years / Male INDICATIONS: Dizzy 1 day, recurrent Atrial fibrillation with near syncope CLINICAL DATA: This is the patient's initial encounter. Patient reports that signs and symptoms have been present for 1 day and indicates a pain score of 0/10. MEDICAL/SURGICAL HISTORY: Renal failure, chronic. Chronic obstructive pulmonary disease. Gastroes ophageal reflux disease. Lung cancer, Hypothyroid, Barrets esophagus Lobectomy. Bone Marrow Biopsy RADIATION DOSE: 43.14 CTDI (mGy) ; Combined studies COMPARISON: . TECHNIQUE: Volumetric scanning was performed using a multi-row detector CT scanner during bolus infu stevie of 75ML ml Visipaque 320 (iodixanol) nonionic water-soluble contrast as a cumulative dose for m ultiple exams. The data was post processed with a variety of visualization algorithms including ful l volume maximum intensity projection, multi-planar sliding thin slab reformation, curved planar refo rmation, and surface rendering techniques. Using automated exposure control and adjustment of the mA and/or kV according to patient size, radiation dose was kept as low as reasonably achievable to obta in optimal diagnostic quality images. DICOM format image data is available electronically for review and comparison. FINDINGS: There is excellent visualization of the major intracranial arteries out to the second-order branch ve ssels. There is no evidence for aneurysm, vessel truncation or stenosis, and no evidence for vascula r malformation. There appears to be a focal nonocclusive filling defect at the anterior aspect of the straight sinus measuring 0.7 x 0.4 cm. CONCLUSION: 1. Negative CTA. The arterial structures appear normal. 2. Small focal area of nonocclusive thrombus in the anterior aspect of the straight sinus. Electronically signed by: Angel Yanez MD 04/17/2018 11:08 AM EDT
--- NOTE | 2018-04-17 11:11 | XR ---
EXAM DATE: 04/17/2018 10:04 AM EDT AGE/SEX: 73 years / Male INDICATIONS: Cardiac disease, cough CLINICAL DATA: This is the patient's initial encounter. Patient reports that signs and symptoms have been present for 1 month and indicates a pain score of 0/10. MEDICAL/SURGICAL HISTORY: . Renal failure, chronic. Chronic obstructive pulmonary disease. Gas troesophageal reflux disease. Atrial fib,Lung cancer, hypothyroid, Barrets esophagus . Lobectomy. B one Marrow Biopsy COMPARISON: 04/12/2018.. FINDINGS: The heart size is normal. There is linear suspected scarring in the right midlung and at the right ba se adjacent to the right hemidiaphragm. Patient appears to have clips in the right hilar region. An a radha of focal consolidation is not seen. A significant change from the prior exam is not seen. CONCLUSION: Chronic scarring in the right lung. An acute abnormality is not seen. Electronically signed by: Angel Yanez MD 04/17/2018 11:09 AM EDT
--- NOTE | 2018-04-17 13:04 | ECG ---
Date Performed: 04/17/2018 Time Performed: 09:27:14 PTAGE: 73 years EKG: ATRIAL FLUTTER/TACHYCARDIA INFERIOR MYOCARDIAL INFARCTION ABNORMAL ECG WARNING: DATA QUALIT Y MAY AFFECT INTERPRETATION PREVIOUS TRACING : 04/13/2018 04.59 DOCTOR: Abigail Chan Interpretating Date/Time 04/17/2018 13:02:27
--- NOTE | 2018-04-17 13:45 | CT ---
EXAM DATE: 04/17/2018 10:10 AM EDT AGE/SEX: 73 years / Male INDICATIONS: Dizzy 1 day, recurrent atrial fibrillation with near syncope CLINICAL DATA: This is the patient's initial encounter. Patient reports that signs and symptoms have been present for 1 day and indicates a pain score of 0/10. MEDICAL/SURGICAL HISTORY: Renal failure, chronic. Chronic obstructive pulmonary disease. Gastroes ophageal reflux disease. Lung cancer, barrets esophagus, hypothyroid Lobectomy. Bone Marrow biopsy RADIATION DOSE: 43.14 CTDI (mGy) ; Combined studies COMPARISON: . TECHNIQUE: Volumetric scanning was performed using a multirow detector CT scanner during bolus infus ion of 75ML ml Visipaque 320 (iodixanol) nonionic water-soluble contrast as a cumulative dose for mu ltiple exams. The data was postprocessed with a variety of visualization algorithms including full- volume maximum intensity projection, multiplanar sliding thin-slab reformation, curved-planar reforma tion, and surface-rendering techniques. Using automated exposure control and adjustment of the mA an d/or kV according to patient size, radiation dose was kept as low as reasonably achievable to obtain optimal diagnostic quality images. DICOM format image data is available electronically for review an d comparison. FINDINGS: Aortic Arch: There is a three-vessel origin of the great vessels from the aorta. No evidence of ost ial narrowing Right Carotid: The common carotid artery is intact. Calcifications are seen in the carotid bulb with out significant stenosis. The internal carotid artery lumen is smooth without stenosis. The externa l carotid artery is intact. Left Carotid: The common carotid artery is intact. Calcifications are seen in the carotid bulb with out significant stenosis. The internal carotid artery lumen is smooth without stenosis. The exter nal carotid artery is intact. Vertebrals: The vertebral arteries have a symmetric diameter. No stenotic lesions are seen. Percent stenosis is calculated using the diameter of the stenotic region over the diameter of the nor mal distal internal carotid artery. CONCLUSION: Calcifications at the carotid bulb regions without a significant stenosis seen throughout. Electronically signed by: Angel Yanez MD 04/17/2018 1:43 PM EDT
--- NOTE | 2018-04-17 14:46 | P.HP ---
History of Present Illness Primary Care Physician: Kavin Gonzalez MD Inpatient Certification: I certify that the inpatient services were ordered in accordance with Medicare regulations governing the order. This includes certification that hospital inpatient services are reasonable and necessary and in the case of services not specified as inpatient-only under 42 CFR 419.22(n), that they are appropriately provided as inpatient services in accordance to with the 2-midnight benchmark under 43 CFR 412.3(e) PMFSH - History History Provided By: Patient - Medical History Medical History: Medical History (Last Reviewed 04/17/18 @ 10:02 by Aravind Flores MD) 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 Anxiety Barretts esophagus COPD (chronic obstructive pulmonary disease) Chronic kidney disease GERD (gastroesophageal reflux disease) Glaucoma HBP (high blood pressure) Hereditary hemochromatosis Hyperlipidemia Hypothyroidism Lung cancer Myelodysplastic syndrome Obesity Pilonidal cyst with abscess Salmonella enteritis - Surgical History Surgical History: Surgical History (Last Reviewed 04/17/18 @ 10:02 by Aravind Flores MD) History of ERCP History of lobectomy of lung History of bone marrow biopsy History of esophagogastroduodenoscopy (EGD) History of lung biopsy History of lung surgery - Family History Family History: Family History (Last Reviewed 04/17/18 @ 10:02 by Aravind Flores MD) Other Coronary artery disease Diabetes mellitus - Tobacco History Second Hand Smoke Exposure: No Tobacco Use In Past 30 Days: No Smoking Status: Former smoker Tobacco Type: Cigarettes - Alcohol History How Often Do You Have a Drink Containing Alcohol: Never - Substance Use History Substance History: No History of Abuse - Travel History Recent Travel in the [place] Within the Last 8 Weeks: No Recent Travel Out of the Country Within the Last 8 Weeks: No - Immunization History Tetanus Immunization: >5 Years Medications and Allergies Active Medications: Active Medications Sodium Chloride (Ns Flush) 2 ml IV.FLUSH PRN PRN PRN Reason: FLUSH AFTER USING IV ACCESS Allergies Allergy/AdvReac Type Severity Reaction Status Date / Time No Known Allergies Allergy Verified 04/17/18 08:56 Home Medications Medication Instructions Recorded Confirmed Type albuterol sulfate [ProAir HFA] 1 puff INHALATION Q6H PRN 04/12/18 04/17/18 History alprazolam 0.5 mg PO DAILY 04/12/18 04/17/18 History aspirin 81 mg PO DAILY 04/12/18 04/17/18 History fenofibrate micronized 134 mg PO DAILY 04/12/18 04/17/18 History latanoprost 1 drp OPHTHALMIC (EYE) QPM 04/12/18 04/17/18 History levothyroxine [Synthroid] 150 mcg PO DAILY 04/12/18 04/17/18 History magnesium 500 mg PO DAILY 04/12/18 04/17/18 History omeprazole 40 mg PO BID 04/12/18 04/17/18 History metoprolol tartrate 25 mg PO BID 04/13/18 04/17/18 History potassium 99 mg PO DAILY 04/17/18 04/17/18 History Exam Vital signs: Vital Signs 04/17/18 08:42 04/17/18 09:05 04/17/18 09:47 Temperature 97.9 F Pulse Rate 85 83 76 Respiratory Rate 20 18 18 Blood Pressure 111/59 L 123/66 109/60 Pulse Oximetry 99 100 100 04/17/18 11:12 Temperature Pulse Rate 80 Respiratory Rate 18 Blood Pressure 129/69 Pulse Oximetry 100 Intake & Output 04/16/18 04/17/18 04/17/18 18:59 06:59 18:59 Weight 119.7 kg Other: # Voids 1 Results - Labs CBC & Chem 7: 04/17/18 09:10 04/17/18 09:10 Labs: Laboratory Results - last 24 hr 04/17/18 04/17/18 04/17/18 09:10 09:10 09:10 CBC w Diff Auto diff final WBC 3.1 L RBC 2.66 L Hgb 9.2 L Hct 27.0 L MCV 101.8 H MCH 34.7 H MCHC 34.1 RDW 20.1 H Plt Count 443 MPV 7.9 Neut % (Auto) 65.3 Lymph % (Auto) 23.9 [place] % (Auto) 4.5 Eos % (Auto) 5.0 H Baso % (Auto) 1.3 Neut # (Auto) 2.1 Lymph # (Auto) 0.7 L [place] # (Auto) 0.1 Eos # (Auto) 0.2 Baso # (Auto) 0.0 WBC Differential . Differential Comment . PT 10.7 INR 1.1 Sodium 142 Potassium 4.0 Chloride 108 H Carbon Dioxide 22.3 Anion Gap 12 BUN 22 H Creatinine 1.30 Estimated GFR 54 L Random Glucose 103 Calcium 9.2 Total Bilirubin 0.9 AST 29 ALT 87 H Alkaline Phosphatase 246 H Total Protein 6.8 Albumin 3.4 Urine Color Urine Clarity Urine pH Ur Specific [place] Urine Protein Urine Glucose (UA) Urine Ketones Urine Occult Blood Urine Nitrate Urine Bilirubin Urine Urobilinogen Ur Leukocyte Esterase Ur Squamous Epith Cells Hyaline Casts Micro UA Comment Ur Microscopic Review Urine Culture Comments 04/17/18 10:20 CBC w Diff WBC RBC Hgb Hct MCV MCH MCHC RDW Plt Count MPV Neut % (Auto) Lymph % (Auto) [place] % (Auto) Eos % (Auto) Baso % (Auto) Neut # (Auto) Lymph # (Auto) [place] # (Auto) Eos # (Auto) Baso # (Auto) WBC Differential Differential Comment PT INR Sodium Potassium Chloride Carbon Dioxide Anion Gap BUN Creatinine Estimated GFR Random Glucose Calcium Total Bilirubin AST ALT Alkaline Phosphatase Total Protein Albumin Urine Color Yellow Urine Clarity Clear Urine pH 7.0 Ur Specific [place] 1.015 Urine Protein 30 H Urine Glucose (UA) Negative Urine Ketones Negative Urine Occult Blood Negative Urine Nitrate Negative Urine Bilirubin Negative Urine Urobilinogen 0.2 Ur Leukocyte Esterase Negative Ur Squamous Epith Cells 0-5 Hyaline Casts 0-3 Micro UA Comment Culture not ind Ur Microscopic Review Microscopic reviewed Urine Culture Comments Culture not ind - Imaging Impressions Chest X-Ray 04/17/18 10:04 CONCLUSION: Chronic scarring in the right lung. An acute abnormality is not seen. Head CTA 04/17/18 10:06 CONCLUSION: 1. Negative CTA. The arterial structures appear normal. 2. Small focal area of nonocclusive thrombus in the anterior aspect of the straight sinus. Neck CTA 04/17/18 10:06 CONCLUSION: Calcifications at the carotid bulb regions without a significant stenosis seen throughout. Head CT 04/17/18 10:31 CONCLUSION: 1. No acute intracranial abnormality is seen. 2. Mild atrophy. . Caprini VTE Risk Assessment Caprini Risk Assessment Model: Point Value = 1 Point Value = 2 Point Value = 3 Point Value = 5 Age 41-60 Minor surgery BMI > 25 kg/m2 Swollen legs Varicose veins or History of unexplained or recurrent spontaneous Oral contraceptives or hormone replacement Sepsis (< 1 month) Serious lung disease, including pneumonia (< 1 month) Abnormal pulmonary function Acute myocardial infarction Congestive heart failure (< 1 month) History of inflammatory bowel disease Medical patient at bed rest Age 61-74 Arthroscopic surgery Major open surgery (> 45 min) Laparoscopic surgery (> 45 min) Malignancy Confined to bed (> 72 hours) Immobilizing plaster cast Central venous access Age >= 75 History of VTE Family history of VTE Factor V Leiden Prothrombin [id number] Lupus anticoagulant Anticardiolipin antibodies Elevated serum homocysteine Heparin-induced thrombocytopenia Other congenital or acquired thrombophilia Stroke (< 1 month) Elective arthroplasty Hip, pelvis, or leg fracture Acute spinal cord injury (< 1 month) Prophylaxis Regimen: Total Risk Factor Score Risk Level Prophylaxis Regimen 0-1 Low Early ambulation 2 Moderate Order ONE of the following: *Sequential Compression Device (SCD) *Heparin 5000 units SQ BID 3-4 Higher Order ONE of the following medications: *Heparin 5000 units SQ TID *Enoxaparin/Lovenox 40 mg SQ daily (WT < 150 kg, CrCl > 30 mL/min) *Enoxaparin/Lovenox 30 mg SQ daily (WT < 150 kg, CrCl > 10-29 mL/min) *Enoxaparin/Lovenox 30 mg SQ BID (WT < 150 kg, CrCl > 30 mL/min) AND/OR *Sequential Compression Device (SCD) 5 or more Highest Order ONE of the following medications: *Heparin 5000 units SQ TID (Preferred with Epidurals) *Enoxaparin/Lovenox 40 mg SQ daily (WT < 150 kg, CrCl > 30 mL/min) *Enoxaparin/Lovenox 30 mg SQ daily (WT < 150 kg, CrCl > 10-29 mL/min) *Enoxaparin/Lovenox 30 mg SQ BID (WT < 150 kg, CrCl > 30 mL/min) AND *Sequential Compression Device (SCD)
[2018-04-17] MEDS ORDERED: Dextrose 50% in Water 50 ML Vial IV.PUSH PRN (15:04)
[2018-04-17] MEDS ORDERED: Acetaminophen 325 MG Tablet PO PRN (15:12)
[2018-04-17] MEDS ORDERED: Bisacodyl 10 MG Supp RECTAL PRN (15:12)
--- NOTE | 2018-04-17 15:14 | P.HP ---
History of Present Illness Primary Care Physician: Kavin Gonzalez MD Chief Complaint: Dizziness History of Present Illness: This is a 73-year-old male with a history of paroxysmal A. fib on aspirin, hyperlipidemia, chronic kidney disease, hypothyroidism, GERD, Diane's esophagus, glaucoma, COPD, lung cancer, myelodysplastic syndrome on chemotherapy and anxiety. Recently hospitalized for choledocholithiasis underwent ERCP with sphincterectomy and balloon extraction on 04/13/2018. Gastroenterology recommended outpatient follow-up with general surgery for elective cholecystectomy. He was discharged on Levaquin and Flagyl for 7 days. Patient was in usual state of health until early this morning when he got up to use the restroom and felt lightheaded and was walking funny. He did not have any other symptoms. He then proceeded to walk the dog and had recurrence of symptoms associated with diaphoresis. Denies syncope, chest pain, shortness of breath, palpitations, nausea, numbness and focal weakness. feels his symptoms could be related to 1 of the antibiotics. In the emergency room, EKG tracing interpreted by me showed a flutter/fib with controlled ventricular response. Head CT and neck CTA unremarkable. Head CTA with nonocclusive thrombus in the straight sinus. Patient only on aspirin. He was told in the past by his audiology doctor that he cannot be on anti-coagulation because of MDS. All other systems reviewed negative. Discussed with neurology on-call Inpatient Certification: I certify that the inpatient services were ordered in accordance with Medicare regulations governing the order. This includes certification that hospital inpatient services are reasonable and necessary and in the case of services not specified as inpatient-only under 42 CFR 419.22(n), that they are appropriately provided as inpatient services in accordance to with the 2-midnight benchmark under 43 CFR 412.3(e) Review of Systems All other systems reviewed negative except as stated in HPI PMFSH - History History Provided By: Patient - Medical History Medical History: Medical History (Last Reviewed 04/17/18 @ 15:38 by Heriberto Hicks MD) 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 Anxiety Barretts esophagus COPD (chronic obstructive pulmonary disease) Chronic kidney disease GERD (gastroesophageal reflux disease) Glaucoma HBP (high blood pressure) Hereditary hemochromatosis Hyperlipidemia Hypothyroidism Lung cancer Myelodysplastic syndrome Obesity Pilonidal cyst with abscess Salmonella enteritis - Surgical History Surgical History: Surgical History (Last Reviewed 04/17/18 @ 15:38 by Heriberto Hicks MD) History of ERCP History of lobectomy of lung History of bone marrow biopsy History of esophagogastroduodenoscopy (EGD) History of lung biopsy History of lung surgery - Family History Family History: Family History (Last Reviewed 04/17/18 @ 15:38 by Heriberto Hicks MD) Other Coronary artery disease Diabetes mellitus - Tobacco History Second Hand Smoke Exposure: No Tobacco Use In Past 30 Days: No Smoking Status: Former smoker Tobacco Type: Cigarettes - Alcohol History How Often Do You Have a Drink Containing Alcohol: Never - Substance Use History Substance History: No History of Abuse - Travel History Recent Travel in the [place] Within the Last 8 Weeks: No Recent Travel Out of the Country Within the Last 8 Weeks: No - Immunization History Tetanus Immunization: >5 Years Medications and Allergies Active Medications: Active Medications Albuterol (Ventolin Hfa Inh) 1 puff INH Q6H PRN PRN Reason: Respiratory Distress Alprazolam (Xanax) 0.5 mg PO DAILY [facility] Aspirin (Ecotrin) 325 mg PO DAILY [facility] Dextrose (D50w Vial) 50 ml IV.PUSH UNSCH PRN PRN Reason: PER HYPOGLYCEMIA PROTOCOL Enalaprilat (Vasotec Inj) 1.25 mg IV.PUSH Q4H PRN PRN Reason: For SBP > 220 or DBP > 120 Glucagon (Glucagon Inj) 1 mg OTHER UNSCH PRN PRN Reason: for Hypoglycemia Protocol Heparin Sodium (Porcine) (Heparin Inj) 5,000 units SQ Q8H [facility] Sodium Chloride (Ns Inj) 1,000 mls @ 70 mls/hr IV.CONT .[id number] [facility] Insulin Aspart (Novolog Insulin [place] Sugar Inj) 0 unit SQ ACHS [facility]; Protocol Latanoprost (Xalatan 0.005% Opth Drops) 1 drop EACH EYE QPM [facility] Levofloxacin (Levaquin) 750 mg PO DAILY [facility] Stop: 04/23/18 08:59 Levothyroxine Sodium (Synthroid) 150 mcg PO DAILY [facility] Metoprolol Tartrate (Lopressor) 25 mg PO BID [facility] Metronidazole (Flagyl) 500 mg PO TID [facility] Stop: 04/22/18 17:59 Non-Formulary Medication (Fenofibrate Micronized [Fenofibrate Micronized]) 134 mg PO DAILY [facility] Non-Formulary Medication (Magnesium [Magnesium]) 500 mg PO DAILY [facility] Non-Formulary Medication (Omeprazole [Omeprazole]) 40 mg PO BID [facility] Non-Formulary Medication (Potassium [Potassium]) 99 mg PO DAILY [facility] Sodium Chloride (Ns Flush) 2 ml IV.FLUSH PRN PRN PRN Reason: FLUSH AFTER USING IV ACCESS Sodium Chloride (Ns Flush) 2 ml IV.FLUSH BID [facility] Sodium Chloride (Ns Flush) 2 ml IV.FLUSH PRN PRN PRN Reason: FLUSH AFTER USING IV ACCESS Allergies Allergy/AdvReac Type Severity Reaction Status Date / Time No Known Allergies Allergy Verified 04/17/18 08:56 Home Medications Medication Instructions Recorded Confirmed Type albuterol sulfate [ProAir HFA] 1 puff INHALATION Q6H PRN 04/12/18 04/17/18 History alprazolam 0.5 mg PO DAILY 04/12/18 04/17/18 History aspirin 81 mg PO DAILY 04/12/18 04/17/18 History fenofibrate micronized 134 mg PO DAILY 04/12/18 04/17/18 History latanoprost 1 drp OPHTHALMIC (EYE) QPM 04/12/18 04/17/18 History levothyroxine [Synthroid] 150 mcg PO DAILY 04/12/18 04/17/18 History magnesium 500 mg PO DAILY 04/12/18 04/17/18 History omeprazole 40 mg PO BID 04/12/18 04/17/18 History metoprolol tartrate 25 mg PO BID 04/13/18 04/17/18 History potassium 99 mg PO DAILY 04/17/18 04/17/18 History Exam Vital signs: Vital Signs 04/17/18 08:42 04/17/18 09:05 04/17/18 09:47 Temperature 97.9 F Pulse Rate 85 83 76 Respiratory Rate 20 18 18 Blood Pressure 111/59 L 123/66 109/60 Pulse Oximetry 99 100 100 04/17/18 11:12 Temperature Pulse Rate 80 Respiratory Rate 18 Blood Pressure 129/69 Pulse Oximetry 100 Intake & Output 04/16/18 04/17/18 04/17/18 18:59 06:59 18:59 Weight 119.7 kg Other: # Voids 1 Narrative: GENERAL: Well-developed, well-nourished in no distress SKIN: Warm and dry. HEAD: Atraumatic. Normocephalic. EYES: Pupils equal and round. No scleral icterus. No injection or drainage. ENT: No nasal bleeding or discharge. Mucous membranes pink and moist. NECK: Trachea midline. No JVD. CARDIOVASCULAR: Regular rate and rhythm. RESPIRATORY: No accessory muscle use. Clear to auscultation. Breath sounds equal bilaterally. GASTROINTESTINAL: Abdomen soft, non-tender, nondistended. MUSCULOSKELETAL: Extremities without clubbing, cyanosis but with bilateral lower extremity pitting edema. No obvious deformities. NEUROLOGICAL: Awake and alert. No obvious cranial nerve deficits. Motor grossly within normal limits. Five out of 5 muscle strength in the arms and legs. Normal speech. PSYCHIATRIC: Appropriate mood and affect; insight and judgment normal. Results - Labs CBC & Chem 7: 04/17/18 09:10 04/17/18 09:10 Labs: Laboratory Results - last 24 hr 04/17/18 04/17/18 04/17/18 09:10 09:10 09:10 CBC w Diff Auto diff final WBC 3.1 L RBC 2.66 L Hgb 9.2 L Hct 27.0 L MCV 101.8 H MCH 34.7 H MCHC 34.1 RDW 20.1 H Plt Count 443 MPV 7.9 Neut % (Auto) 65.3 Lymph % (Auto) 23.9 [place] % (Auto) 4.5 Eos % (Auto) 5.0 H Baso % (Auto) 1.3 Neut # (Auto) 2.1 Lymph # (Auto) 0.7 L [place] # (Auto) 0.1 Eos # (Auto) 0.2 Baso # (Auto) 0.0 WBC Differential . Differential Comment . PT 10.7 INR 1.1 Sodium 142 Potassium 4.0 Chloride 108 H Carbon Dioxide 22.3 Anion Gap 12 BUN 22 H Creatinine 1.30 Estimated GFR 54 L Random Glucose 103 Calcium 9.2 Total Bilirubin 0.9 AST 29 ALT 87 H Alkaline Phosphatase 246 H Total Protein 6.8 Albumin 3.4 Urine Color Urine Clarity Urine pH Ur Specific [place] Urine Protein Urine Glucose (UA) Urine Ketones Urine Occult Blood Urine Nitrate Urine Bilirubin Urine Urobilinogen Ur Leukocyte Esterase Ur Squamous Epith Cells Hyaline Casts Micro UA Comment Ur Microscopic Review Urine Culture Comments 04/17/18 10:20 CBC w Diff WBC RBC Hgb Hct MCV MCH MCHC RDW Plt Count MPV Neut % (Auto) Lymph % (Auto) [place] % (Auto) Eos % (Auto) Baso % (Auto) Neut # (Auto) Lymph # (Auto) [place] # (Auto) Eos # (Auto) Baso # (Auto) WBC Differential Differential Comment PT INR Sodium Potassium Chloride Carbon Dioxide Anion Gap BUN Creatinine Estimated GFR Random Glucose Calcium Total Bilirubin AST ALT Alkaline Phosphatase Total Protein Albumin Urine Color Yellow Urine Clarity Clear Urine pH 7.0 Ur Specific [place] 1.015 Urine Protein 30 H Urine Glucose (UA) Negative Urine Ketones Negative Urine Occult Blood Negative Urine Nitrate Negative Urine Bilirubin Negative Urine Urobilinogen 0.2 Ur Leukocyte Esterase Negative Ur Squamous Epith Cells 0-5 Hyaline Casts 0-3 Micro UA Comment Culture not ind Ur Microscopic Review Microscopic reviewed Urine Culture Comments Culture not ind - Imaging Impressions Chest X-Ray 04/17/18 10:04 CONCLUSION: Chronic scarring in the right lung. An acute abnormality is not seen. Head CTA 04/17/18 10:06 CONCLUSION: 1. Negative CTA. The arterial structures appear normal. 2. Small focal area of nonocclusive thrombus in the anterior aspect of the straight sinus. Neck CTA 04/17/18 10:06 CONCLUSION: Calcifications at the carotid bulb regions without a significant stenosis seen throughout. Head CT 04/17/18 10:31 CONCLUSION: 1. No acute intracranial abnormality is seen. 2. Mild atrophy. . Caprini VTE Risk Assessment Caprini VTE Risk Assessment: Moderate/High Risk (score >= 2) Caprini Risk Assessment Model: Point Value = 1 Point Value = 2 Point Value = 3 Point Value = 5 Age 41-60 Minor surgery BMI > 25 kg/m2 Swollen legs Varicose veins or History of unexplained or recurrent spontaneous Oral contraceptives or hormone replacement Sepsis (< 1 month) Serious lung disease, including pneumonia (< 1 month) Abnormal pulmonary function Acute myocardial infarction Congestive heart failure (< 1 month) History of inflammatory bowel disease Medical patient at bed rest Age 61-74 Arthroscopic surgery Major open surgery (> 45 min) Laparoscopic surgery (> 45 min) Malignancy Confined to bed (> 72 hours) Immobilizing plaster cast Central venous access Age >= 75 History of VTE Family history of VTE Factor V Leiden Prothrombin [id number] Lupus anticoagulant Anticardiolipin antibodies Elevated serum homocysteine Heparin-induced thrombocytopenia Other congenital or acquired thrombophilia Stroke (< 1 month) Elective arthroplasty Hip, pelvis, or leg fracture Acute spinal cord injury (< 1 month) Prophylaxis Regimen: Total Risk Factor Score Risk Level Prophylaxis Regimen 0-1 Low Early ambulation 2 Moderate Order ONE of the following: *Sequential Compression Device (SCD) *Heparin 5000 units SQ BID 3-4 Higher Order ONE of the following medications: *Heparin 5000 units SQ TID *Enoxaparin/Lovenox 40 mg SQ daily (WT < 150 kg, CrCl > 30 mL/min) *Enoxaparin/Lovenox 30 mg SQ daily (WT < 150 kg, CrCl > 10-29 mL/min) *Enoxaparin/Lovenox 30 mg SQ BID (WT < 150 kg, CrCl > 30 mL/min) AND/OR *Sequential Compression Device (SCD) 5 or more Highest Order ONE of the following medications: *Heparin 5000 units SQ TID (Preferred with Epidurals) *Enoxaparin/Lovenox 40 mg SQ daily (WT < 150 kg, CrCl > 30 mL/min) *Enoxaparin/Lovenox 30 mg SQ daily (WT < 150 kg, CrCl > 10-29 mL/min) *Enoxaparin/Lovenox 30 mg SQ BID (WT < 150 kg, CrCl > 30 mL/min) AND *Sequential Compression Device (SCD) Assessment and Plan - Plan This is a 73-year-old male with a history of paroxysmal A. fib on aspirin, hyperlipidemia, chronic kidney disease, hypothyroidism, GERD, Diane's esophagus, glaucoma, COPD, lung cancer, myelodysplastic syndrome on chemotherapy and anxiety. Presents with dizziness with diaphoresis. EKG with atrial flutter/fib with controlled ventricular response. Head CTA with nonocclusive thrombus in the straight sinus Transient dizziness in a patient with history of paroxysmal A. fib/flutter on aspirin. He will need stroke workup will include MRI, echocardiogram and MRV ( nonocclusive thrombus in the straight sinus on the head CTA). Monitor on telemetry. Increase to full dose aspirin. We will consult hematology for anticoagulation clearance history of MDS. Risk factor modification obtain A1c and lipid profile. Consult PT, OT and ST. Neurology has been consulted. Recently hospitalized for choledocholithiasis underwent ERCP with sphincterectomy and balloon extraction on 04/13/2018. Gastroenterology recommended outpatient follow-up with general surgery for elective cholecystectomy. He was discharged on Levaquin and Flagyl for 7 days. DVT prophylaxis with SCD and subcu heparin. Discharge Planning: HHC in 1-2 days
[2018-04-17] MEDS: Heparin - SQ 10,000 UNITS/ML Vial SQ SCH ×2 (15:35→22:04)
[2018-04-17 16:15] LABS: Creatine Kinase 58 U/L (39-308)
--- NOTE | 2018-04-17 16:18 | MB ---
cc: Hetal Smith MD DATE: 04/17/2018 REASON FOR CONSULTATION: Dizziness. HISTORY OF PRESENT ILLNESS: The patient is a right-handed, male seen for evaluation of an episode of dizziness. He reports that he woke up at 4 a.m. and went to the bathroom and he felt dizzy, lightheadedness. Denies chest pain, palpitation, headache, double vision. Then, he had another episode and then he reported to the emergency room. He denies similar episodes in the past. He has recently done an ERCP and he is on double antibiotics and he thinks one of the antibiotics is "dangerous," made him feel dizzy. The patient is status post right middle lobectomy for cancer and he is diagnosed with myelodysplastic syndrome and he is on therapy. Denies history of DVT or PE. He denies history of TIA or stroke. During the episode he denied headache, double vision, blurred vision, weakness of extremities, or slurring of words. The emergency room physician code for history of atrial fibrillation. Actually, the patient is in paroxysmal atrial fibrillation with these episodes and it is not clear why the patient is not on anticoagulation, but on aspirin. The plan was to admit the patient and do further workup. I discussed the case with the attending physician. REVIEW OF SYSTEMS: A 12-point review of system was negative except for stated in the HPI. PAST MEDICAL HISTORY: Myelodysplasia, anxiety, Diane's esophagus, COPD, CKD, GERD, glaucoma, hypertension, hemochromatosis, hyperlipidemia, hypothyroidism, history of lung cancer status post right middle lobectomy and chemotherapy, myelodysplastic syndrome, obesity. PAST SURGICAL HISTORY: ERCP, middle lobectomy of right lung, bone marrow biopsy, EGD, lung biopsy, and leg surgery. FAMILY HISTORY: Coronary artery disease and diabetes. SOCIAL HISTORY: Lives with his . No history of abuse or alcohol. Former smoker. PHYSICAL EXAMINATION: GENERAL: Awake, alert, oriented, cooperative, not in acute distress. HEENT: Atraumatic, normocephalic. Bronze color of the face. NECK: Trachea in the midline. No carotid bruit. CARDIOVASCULAR: Irregular rhythm, questionable murmur. RESPIRATORY: Clear to auscultation. No wheezes. GASTROINTESTINAL: Soft abdomen, nontender. MUSCULOSKELETAL: No deformities, no tenderness, no clubbing. NEUROLOGIC: Awake, alert, oriented to time, person and place. No dysarthria. No dysphasia. Cranial nerves 2-12 are intact. Pupils equally reacting to light. Extraocular motility. No dysarthria. No dysphagia. Hard of hearing. No facial asymmetry. Moves all extremities equally, 5/5. No abnormal movement. Mild tremor/intention on the right greater than left hand. Normal muscle tone. Intact sensation throughout. Intact cerebellar function. PSYCHIATRIC: Appropriate mood and behavior. No hallucination. Good insight and judgment. LABORATORY DATA: CBC revealed white blood cell of 3.1, hemoglobin 9.2, MCV 101.8, eosinophil of 5. Coagulation: PT, INR normal. CMP revealed normal sodium and potassium, elevated chloride, elevated BUN, and elevated liver enzymes. Total bilirubin is normal. DIAGNOSTIC DATA: - Head CT was reported as unremarkable. - Head CTA was negative. Arterial structure appeared normal; however small focal area of nonocclusive thrombus in the anterior aspect of the straight sinus. -I personally reviewed the imaging and discussed with attending physician, this is a filling defect and we need to verify by doing venogram; however, radiology will not do venogram because of the contrast load so the plan is to defer this for tomorrow. - CTA of the neck was reported with calcification at the carotid bulb without significant stenosis. - EKG revealed atrial fibrillation. IMPRESSION: 1. Syncopal episode/dizziness. 2. Abnormal imaging of the brain. 3. Myelodysplastic syndrome. 4. Hemochromatosis. 5. Lung cancer status post right middle lobectomy. 6. Hyperlipidemia. 7. Hypothyroidism. 8. Diane esophagus. PLAN: 1. Neuro checks every 4 hours. 2. Orthostatic vitals. 3. Telemetry. 4. Cardiac echo. 5. Consult hematology. 6. MRI brain. 7. MRV without contrast. 8. Deep venous thrombosis prophylaxis. 9. GI prophylaxis. 10. Aspirin 325 mg. - I discussed the case with Dr. Hicks, the attending physician and PA, Ms. Sanchez. - This is likely a filling defect; however, a venogram will be more specific. An MRI brain will also be done. At this time, we will hold off starting anticoagulation until hematology assess the patient and determines whether there is a contraindication given his hematologic disorder. Thank you for the opportunity to participate in the care of your patient. MD Yousuf Fernandes , 03:26 PM , 03:43 PM [facility]ITALBryan
[2018-04-17] MEDS: Insulin NovoLOG Aspart Correctional Sugar Inj SQ SCH ×2 (17:10→22:07)
--- NOTE | 2018-04-17 17:24 | MR ---
EXAM DATE: 04/17/2018 3:37 PM EDT AGE/SEX: 73 years / Male INDICATIONS: Dizziness. CLINICAL DATA: This is the patient's initial encounter. Patient reports that signs and symptoms have been present for 1 day and indicates a pain score of 0/10. MEDICAL/SURGICAL HISTORY: Carcinoma, lung. Lobectomy. COMPARISON: [facility]PO, MR HEAD W/O CONTRAST, 04/17/2018. . TECHNIQUE: MR cerebral venography is performed without contrast. Source images, 3D volume MIP, and s liding thin slab MIP reconstructions were reviewed. FINDINGS: There is good visualization of the intracranial venous structures. The sagittal sinus is patent throu ghout its extent. The confluence of sinuses and sphenoid sinuses are patent. The straight sinus and v ein of Ramakrishna are grossly patent. CONCLUSION: 1. Grossly unremarkable MRV. Electronically signed by: Edy Faulkner MD 04/17/2018 5:23 PM EDT
--- NOTE | 2018-04-17 17:26 | MR ---
EXAM DATE: 04/17/2018 3:37 PM EDT AGE/SEX: 73 years / Male INDICATIONS: Dizziness. Abnormal CTA of the head demonstrating a small area of nonocclusive thromb us in the anterior aspect of the straight sinus. History of lung cancer. CLINICAL DATA: This is the patient's initial encounter. Patient reports that signs and symptoms have been present for 1 day and indicates a pain score of 0/10. MEDICAL/SURGICAL HISTORY: Carcinoma, lung. Lobectomy. COMPARISON: No prior exams available for comparison. TECHNIQUE: Multiplanar, multisequence examination of the brain was performed without contrast. FINDINGS: Cerebrum: The ventricles are normal for age. No evidence of midline shift, mass lesion, hemorrhage or acute infarction. No extraaxial fluid collections are seen. The pituitary gland and suprasellar cistern are normal in configuration. White Matter: On the FLAIR weighted images there is increased signal noted in the periventricular wh ite matter characteristic chronic small vessel ischemic changes. Posterior Fossa: The cerebellum and brainstem are intact. The 4th ventricle is midline. The cerebel lopontine angle is unremarkable. The cerebellar tonsils are normal in position. Diffusion Imaging: No focal areas of restricted diffusion are seen. No evidence of acute infarction . Extracranial: The visualized portions of the orbits and paranasal sinuses are unremarkable. CONCLUSION: 1. No acute hemorrhage, infarction or mass effect. 2. Atrophy and chronic small vessel ischemic changes. Electronically signed by: Luiz Davila MD 04/17/2018 5:25 PM EDT
[2018-04-17] MEDS: metroNIDAZOLE 500 MG Tablet PO SCH (17:39)
[2018-04-17] MEDS: Sod Chloride 0.9% Inj 1,000 ML IV.CONT SCH (17:39)
[2018-04-17] MEDS ORDERED: Latanoprost 0.005% Opth Drops 2.5 ML Bottle EACH EYE SCH (18:00)
[2018-04-17] MEDS: Metoprolol Tartrate 25 MG Tablet PO SCH (22:03)
[2018-04-17] MEDS: Senna/Docusate Sodium 8.6/50 MG Tablet PO SCH (22:03)
[2018-04-18] MEDS: Heparin - SQ 10,000 UNITS/ML Vial SQ SCH (05:30)
[2018-04-18 05:47] VITALS: O2SAT 99
[2018-04-18] MEDS ORDERED: Levothyroxine 150 MCG Tablet PO SCH (06:00)
[2018-04-18] MEDS: Insulin NovoLOG Aspart Correctional Sugar Inj SQ SCH ×2 (07:41→12:33)
[2018-04-18] MEDS: Sod Chloride 0.9% Inj 1,000 ML IV.CONT SCH (08:26)
[2018-04-18] MEDS: metroNIDAZOLE 500 MG Tablet PO SCH (08:28)
[2018-04-18] MEDS: Metoprolol Tartrate 25 MG Tablet PO SCH (08:28)
[2018-04-18] MEDS: Senna/Docusate Sodium 8.6/50 MG Tablet PO SCH (08:29)
[2018-04-18] MEDS ORDERED: Magnesium Oxide 400 MG Tablet PO SCH ×2 (09:00→14:00)
[2018-04-18] MEDS ORDERED: Fenofibrate 145 MG Tablet PO SCH (09:00)
[2018-04-18] MEDS ORDERED: ALPRAZolam 0.5 MG Tablet PO SCH (09:00)
[2018-04-18 09:01] VITALS: BP 123/60; RESP 16; TEMP 99.4
--- NOTE | 2018-04-18 09:47 | ECHRPT ---
Indication: CEREBRAL EMBOLISM CONCLUSIONS Normal left ventricular size. Wall thickness is normal. The left atrial size is mildly dilated. Trace mitral valve regurgitation. Aortic valve sclerosis is present. There is trace tricuspid valve regurgitation. The estimated pulmonary arterial pressure is 25.7 mmHg. BP: / HR: Rhythm: Sinus MEASUREMENTS (Male / Female) Normal Values Technical Quality:Fair 2D ECHO LV Diastolic Diameter PLAX 5.6 cm 4.2 - 5.9 / 3.9 - 5.3 cm LV Systolic Diameter PLAX 4.0 cm IVS Diastolic Thickness 1.0 cm 0.6 - 1.0 / 0.6 - 0.9 cm LVPW Diastolic Thickness 1.0 cm 0.6 - 1.0 / 0.6 - 0.9 cm LV Relative Wall Thickness 0.3 RV Internal Dim ED PLAX 2.6 cm LVOT Diameter 2.0 cm Aortic Root Diameter 2.9 cm LA Systolic Diameter LX 4.3 cm 3.0 - 4.0 / 2.7 - 3.8 cm M-MODE AV Cusp Separation MM 2.1 cm DOPPLER AV Peak Velocity 170.0 cm/s AV Peak Gradient 11.6 mmHg AV Mean Gradient 5.0 mmHg AV Velocity Time Integral 31.5 cm LVOT Peak Velocity 123.0 cm/s LVOT Peak Gradient 6.1 mmHg LVOT Velocity Time Integral 25.7 cm AV Area Cont Eq vti 2.6 cm AV Area Cont Eq pk 2.3 cm Mitral E Point Velocity 96.7 cm/s Mitral A Point Velocity 84.9 cm/s Mitral E to A Ratio 1.1 TR Peak Velocity 198.0 cm/s TR Peak Gradient 15.7 mmHg Right Atrial Pressure 10.0 mmHg Pulmonary Artery Systolic Pressu 25.7 mmHg Right Ventricular Systolic Press 25.7 mmHg PV Peak Velocity 105.0 cm/s PV Peak Gradient 4.4 mmHg FINDINGS LEFT VENTRICLE Normal left ventricular size. Wall thickness is normal. The left ventricular systolic function is normal with an estimated ejection fraction in the range of 60-65%. RIGHT VENTRICLE Normal right ventricular size and systolic function. LEFT ATRIUM The left atrial size is mildly dilated. RIGHT ATRIUM The right atrial size is normal. ATRIAL SEPTUM No atrial level shunt is demonstrated by color flow Doppler interrogation. AORTA The aortic root and proximal ascending aorta are not well visualized. MITRAL VALVE Trace mitral valve regurgitation. AORTIC VALVE Aortic valve sclerosis is present. TRICUSPID VALVE There is trace tricuspid valve regurgitation. The estimated pulmonary arterial pressure is 25.7 mmHg. PULMONARY VALVE No pulmonary valve regurgitation or stenosis. VESSELS The inferior vena cava was not well visualized. PERICARDIUM No pericardial effusion. Abigail Chan MD (Electronically Signed) Final Date:18 April 2018 09:47
--- NOTE | 2018-04-18 10:02 | ECG ---
Date Performed: 04/17/2018 Time Performed: 15:11:15 PTAGE: 73 years EKG: Sinus rhythm POSSIBLE ANTERIOR MYOCARDIAL INFARCTION ABNORMAL ECG PREVIOUS TRACING : 04/17/2018 09.27 DOCTOR: Abigail Chan Interpretating Date/Time 04/18/2018 10:00:45
--- NOTE | 2018-04-18 10:44 | P.PN ---
Subjective Interval history: Follow-up TIA and A. fib. He is doing good telemetry shows sinus rhythm. Ambulating without difficulty. Per patient hematology recommends aspirin for now and follow-up with regular artificial fly tier to decide on anticoagulation in light of history of MDS Physical Exam Vital signs: Vital Signs 04/17/18 11:12 04/17/18 15:04 04/17/18 16:00 Temperature 98.0 F Pulse Rate 80 70 75 Respiratory Rate 18 16 Blood Pressure 129/69 124/60 Pulse Oximetry 100 97 04/17/18 20:00 04/18/18 00:00 04/18/18 04:00 Temperature 96.1 F L 96.8 F L 96.4 F L Pulse Rate 70 77 62 Respiratory Rate 18 18 18 Blood Pressure 134/75 151/68 H 149/67 H Pulse Oximetry 99 98 99 04/18/18 08:00 Temperature 99.4 F Pulse Rate 88 Respiratory Rate 16 Blood Pressure 123/60 Pulse Oximetry 99 Intake & Output 04/17/18 04/18/18 04/18/18 18:59 06:59 18:59 Intake Total 600 / 600 0 / 0 1000 / 1000 Balance 600 / 600 0 / 0 1000 / 1000 Weight 119.7 kg 119.7 kg Intake: IV 1000 / 1000 NS Inj 1,000 ML @ 70 mls/hr IV. 1000 / 1000 CONT .[id number] AMANDA Rx#: [id number] Oral 600 / 600 0 / 0 Other: # Voids 2 3 # Bowel Movements 0 1 Narrative: GENERAL: Well-developed, well-nourished in no distress SKIN: Warm and dry. CARDIOVASCULAR: Regular rate and rhythm. RESPIRATORY: No accessory muscle use. Clear to auscultation. Breath sounds equal bilaterally. GASTROINTESTINAL: Abdomen soft, non-tender, nondistended. MUSCULOSKELETAL: Extremities without clubbing, cyanosis but with bilateral lower extremity pitting edema. No obvious deformities. NEUROLOGICAL: Awake and alert. No obvious cranial nerve deficits except for chronic left eye lateral deviation. Motor grossly within normal limits. Five out of 5 muscle strength in the arms and legs. Normal speech. PSYCHIATRIC: Appropriate mood and affect; insight and judgment normal. Results - Labs CBC & Chem 7: 04/17/18 09:10 04/17/18 09:10 Laboratory Results - last 24 hr 04/17/18 04/17/18 04/17/18 10:20 15:21 15:37 POC Glucose 95 Total Creatine Kinase 58 Troponin I Less than 0.02 L Urine Color Yellow Urine Clarity Clear Urine pH 7.0 Ur Specific [place] 1.015 Urine Protein 30 H Urine Glucose (UA) Negative Urine Ketones Negative Urine Occult Blood Negative Urine Nitrate Negative Urine Bilirubin Negative Urine Urobilinogen 0.2 Ur Leukocyte Esterase Negative Ur Squamous Epith Cells 0-5 Hyaline Casts 0-3 Micro UA Comment Culture not ind Ur Microscopic Review Microscopic reviewed Urine Culture Comments Culture not ind 04/17/18 04/18/18 22:02 07:24 POC Glucose 97 103 Total Creatine Kinase Troponin I Urine Color Urine Clarity Urine pH Ur Specific [place] Urine Protein Urine Glucose (UA) Urine Ketones Urine Occult Blood Urine Nitrate Urine Bilirubin Urine Urobilinogen Ur Leukocyte Esterase Ur Squamous Epith Cells Hyaline Casts Micro UA Comment Ur Microscopic Review Urine Culture Comments - Imaging Impressions Head/Brain Mag Res Venography 04/17/18 00:00 CONCLUSION: 1. Grossly unremarkable MRV. Chest X-Ray 04/17/18 10:04 CONCLUSION: Chronic scarring in the right lung. An acute abnormality is not seen. Head CTA 04/17/18 10:06 CONCLUSION: 1. Negative CTA. The arterial structures appear normal. 2. Small focal area of nonocclusive thrombus in the anterior aspect of the straight sinus. Neck CTA 04/17/18 10:06 CONCLUSION: Calcifications at the carotid bulb regions without a significant stenosis seen throughout. Head CT 04/17/18 10:31 CONCLUSION: 1. No acute intracranial abnormality is seen. 2. Mild atrophy. . Head MRI 04/17/18 15:06 CONCLUSION: 1. No acute hemorrhage, infarction or mass effect. 2. Atrophy and chronic small vessel ischemic changes. - Procedures none Assessment and Plan - Plan This is a 73-year-old male with a history of paroxysmal A. fib on aspirin, hyperlipidemia, chronic kidney disease, hypothyroidism, GERD, Diane's esophagus, glaucoma, COPD, lung cancer, myelodysplastic syndrome on chemotherapy and anxiety. Presents with dizziness with diaphoresis. EKG with atrial flutter/fib with controlled ventricular response. Head CTA with nonocclusive thrombus in the straight sinus. MRV negative Transient dizziness in a patient with history of paroxysmal A. fib/flutter on aspirin. Stroke workup negative which included MRI, neck CTA and echocardiogram. Telemetry shows sinus rhythm. He is stable [id number] of 3( age and TIA), needs to be on anticoagulation but has risks of bleeding secondary to history of MDS we will await recommendations from his regular artificial fly tier for now we will continue full dose aspirin. Risk factor modification pending A1c and lipid profile. Consulted PT, OT and ST. Neurology has been consulted. Recently hospitalized for choledocholithiasis underwent ERCP with sphincterectomy and balloon extraction on 04/13/2018. Gastroenterology recommended outpatient follow-up with general surgery for elective cholecystectomy. He was discharged on Levaquin and Flagyl for 7 days, will continue. DVT prophylaxis with SCD and subcu heparin. Discharge Planning: Discharge patient to home Condition on discharge: Improved Regular Diet as tolerated Ad Laurence activity no driving Rx written: Full dose aspirin Follow-up with primary care physician, cardiology and hematology
[2018-04-18] MEDS ORDERED: levoFLOXacin 750 MG Tablet PO SCH (11:00)
[2018-04-18 12:52] VITALS: PULSE 76
--- NOTE | 2018-04-18 13:27 | MB ---
cc: Kady Barajas MD DATE: 04/18/2018 CHIEF COMPLAINT: 1. History of myelodysplastic syndrome with anemia and thrombocytosis. 2. Atrial fibrillation, atrial flutter, followed by in the outpatient setting. 3. Iron overload. HISTORY OF PRESENT ILLNESS: Mr. Barba is a 73-year-old gentleman with a history of acid reflux, Diane's esophagus, chronic renal disease, chronic obstructive pulmonary disease, glaucoma, homozygous mutation of the H63D mutation, hyperlipidemia, myelodysplastic syndrome, and large cell neuroendocrine tumor who is admitted to the hospital. 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 Final stage is pT2 N0 M0 treated with cisplatin and etoposide x4 cycles. Restaging PET from 02/2015 with no evidence of recurrent or metastatic disease. His initial treatment was in 2012, myelodysplastic syndrome, refractory anemia with ringed sideroblast, IPSS-R score of 2, low risk disease. He is currently being treated with at 75 mg/m2 on days 1 through 5 of every 28-day cycle. From Dr. Weeks's notes, he is tolerating chemotherapy well with good response of his cytopenia. He is also on therapy for history of homozygous H63D and iron overload. He was recently hospitalized from 04/12/2018 through 04/15/2018 with fever and right upper quadrant pain. He was found to have a distal duct stone on gallbladder ultrasound. He underwent ERCP with sphincterectomy and balloon extraction on 04/13/2018 and he was recommended to follow up outpatient with general surgery for consideration of elective cholecystectomy. He was given Zosyn during his hospital stay and discharged home with Levaquin and Flagyl to be taken for a total of 7 days. He was readmitted to the hospital on 04/17/2018 with an episode of lightheadedness, dizziness, diaphoresis, and imbalance in his gait. These symptoms resolved and then when he was walking the dog, he had recurrence of the symptoms. Evaluation in the emergency room showed that he was in atrial flutter, atrial fibrillation with controlled ventricular response. Imaging studies performed include head CTA, which showed small focal area of nonocclusive thrombus in the anterior aspect of the straight sinus. Neck CTA with calcifications at the carotid bulb regions without significant stenosis seen throughout. Head CT with no acute intracranial abnormality and mild atrophy. Head MRI with no acute hemorrhage, infarction, or mass effect, atrophy, and chronic small vessel ischemic changes seen. MRV obtained, which showed good visualization of intracranial venous structures. The sagittal sinus is patent throughout its extent. Crosby of the sinuses and sphenoid sinuses are patent. The straight sinus and vein of Ramakrishna are grossly patent. Neurology team has seen the patient. They felt that the nonocclusive thrombosis seen on head CTA was likely a filling defect and the MRV of the brain confirmed this. Hematology service consulted for further evaluation and management of anticoagulation. REVIEW OF SYSTEMS: As above in the HPI. All others negative. PAST MEDICAL HISTORY: 1. Diane's esophagus. 2. Acid reflux. 3. Chronic obstructive pulmonary disease. 4. Chronic kidney disease. 5. Glaucoma. 6. High blood pressure. 7. Hereditary hemochromatosis. 8. Hyperlipidemia. 9. Hypothyroidism. 10. Lung cancer. 11. Myelodysplastic syndrome. 12. History of gallstones. PAST SURGICAL HISTORY: Bone marrow biopsy, EGD, lung lobectomy. FAMILY HISTORY: No family history of malignancy. SOCIAL HISTORY: The patient is a former smoker. He reports rare social alcohol use. Good support system with his . MEDICATIONS: Hospital medications include: 1. Albuterol. 2. Xanax. 3. Aspirin. 4. Fenofibrate. 5. Aspart. 6. Latanoprost eyedrops. 7. Levaquin. 8. Levothyroxine. 9. Metoprolol. 10. Flagyl. 11. Morphine. 12. Zofran. 13. Pantoprazole. 14. Zosyn. 15. Docusate. 16. Senna. ALLERGIES: NO KNOWN DRUG ALLERGIES. PHYSICAL EXAMINATION: VITAL SIGNS: Temperature 99.4, pulse 88, blood pressure 123/60, respiratory rate is 18, and pulse oximetry is 99% on room air. GENERAL: Well-developed, well-nourished man in no distress, resting comfortably in bedside chair. HEENT: Head is normocephalic, atraumatic. Eyes, PERRLA, EOMI. No scleral icterus. NECK: Supple. No palpable lymphadenopathy. CARDIOVASCULAR: Regular rate and rhythm. No murmurs. RESPIRATORY: Clear to auscultation bilaterally. ABDOMEN: Soft, protuberant, distended. No pain. EXTREMITIES: No edema. NEUROLOGIC: Grossly nonfocal. PSYCHIATRIC: Appropriate mood and affect. ASSESSMENT AND PLAN: 1. Calculated CHADS2-VASc score for atrial fibrillation for stroke risk. The patient received 1 point for his age, 0 point for his sex. He has no history of congestive heart failure. He does have a history of hypertension. He has a history of cardiovascular disease. He has a history of diabetes with questionable TIA. This would place him at high risk. The patient reports in the past, his oncologist prior to Dr. Weeks, Dr. Zamudio, advised him not to be on any blood thinners. Prior to his diagnosis of myelodysplastic syndrome, it seems like there was a period of time where they were worried that his anemia was secondary to an occult gastrointestinal bleed. The patient can recall no past history of a massive GI bleed or requirement of blood transfusions. He follows outpatient with meat clerk. He does not have any evidence of thrombocytopenia in this case in this patient with normal platelet count to elevated platelet count, high CHADS2-VASc and known atrial fibrillation and atrial flutter would certainly consider systemic anticoagulation. The patient reports that his meat clerk, has offered this in the past, but he has declined. He would be willing to start on this medication if it is the recommendation of his cardiology team and his oncology team. Have placed cardiology consult. 2. Myelodysplastic syndrome, currently on Vidaza therapy, follows in clinic with Dr. Weeks. Counts are stable. Suspect control of his disease. 3. 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 4. Infectious disease. History of gallstones and discharged on antibiotic therapy. He continues on Flagyl. MD LORI Sosa/sv/do , 10:19 AM , 11:15 AM MILENA
[2018-04-18 16:22] LABS: Chol/HDL Ratio 4.51 Ratio; HDL Cholesterol 36.3 mg/dL (40.0-60.0)
[2018-04-19 17:54] LABS: Hemoglobin A1c 5.4 % (4.3-6.0)
== END 2018-04-18 13:03 | disposition home or self-care (01) ==
LOC: PHED 08:39 → PHEDA 12:52 → INTOOBSV 12:52 → PH3 14:15
PROVIDERS: ADMIT Internal Medicine; ATTEND Internal Medicine